=== PATIENT | male | born 1955 | race Asian ===

== ENCOUNTER 2022-05-14 18:51 | Inpatient (IN) | payer BC ==
[~2022-05-14] VITALS: Ht 167.6 cm; Wt 59.0 kg
--- NOTE | 2022-05-14 18:00 | NUR ---
pt arrived on the unit. pt aox4, trach dependent, non-verbal. pt can communicate using hand signal and head nodding. body check done by 2 RN, left mandible surgical wound, buttocks redness, left lateral legs scabs and left lateral foot redness noted. Picture taken and placed on the chart. T/O for admission orders received. pharmacy verified med list. will endorsed to noc shift for full admission.
[2022-05-14] MEDS ORDERED: HYDROGEN PEROXIDE 3% 118 ML BOTTLE TP PRN (20:00)
[2022-05-14] MEDS ORDERED: ACETAMINOPHEN 650 MG/20 ML UDC- SA PATIENTS-FEVER ONLY GT PRN (20:15)
[2022-05-14] MEDS ORDERED: MINERAL OIL/PETROLAT OPHT OINT 3.5 GM TUBE EACHEYE PRN (20:15)
[2022-05-14] MEDS ORDERED: ONDANSETRON HCL 4 MG TABLET GT PRN (20:15)
[2022-05-14] MEDS: HYDROGEN PEROXIDE 3% 118 ML BOTTLE TP SCH (23:40)
[2022-05-15] MEDS: ALLOPURINOL 100 MG TABLET GT SCH (08:43)
[2022-05-15] MEDS: POLYVINYL ALCOHOL OPHT DROPS 15 ML BOTTLE EACHEYE SCH ×3 (08:43→16:32)
[2022-05-15] MEDS: LANSOPRAZOLE 30MG DR CAPSULE GT SCH (08:43)
[2022-05-15] MEDS: ENOXAPARIN SODIUM 40 MG/0.4 ML DISP.SYRIN SQ SCH (08:44)
[2022-05-15] MEDS: ACETAMINOPHEN 650 MG/20 ML UDC- SA PATIENTS-PAIN ONLY GT PRN (08:45)
[2022-05-15] MEDS: HYDROGEN PEROXIDE 3% 118 ML BOTTLE TP SCH ×2 (09:00→21:52)
[2022-05-15] MEDS ORDERED: TUBERCULIN,PURIF.PROT.DERIV. 5 TU/0.1 ML TEST ID SCH (12:00)
--- NOTE | 2022-05-15 12:16 | NUR ---
Pt AAOx3. Trach Mist in place ,respirations even and unlabored no SOB, non-verbal. pt can communicate using hand signal head nodding writing notes. GTF in place intact no residual, left mandible surgical wound cover w/DD, buttocks redness, left lateral legs scabs and left lateral foot redness noted. Meds given as per MD order PPD given at [facility] will continue to monitor closely for safety and comfort.
[2022-05-15 15:34] LABS: HEMATOCRIT 26.1 % (36.7-47.1); MEAN CORPUSCULAR HEMOGLOBIN 27.2 uug (23.8-33.4); MEAN CORPUSCULAR VOLUME 86.6 fL (73.0-96.2); PLATELET COUNT (AUTO) 273 K/uL (152-348)
[2022-05-15 15:49] LABS: BILIRUBIN,TOTAL 0.2 mg/dL (0.2-1.0); CREATININE 0.9 mg/dL (0.6-1.3); MAGNESIUM 2.2 mg/dL (1.8-2.4); PHOSPHOROUS 2.8 mg/dL (2.5-4.9); TOTAL PROTEIN, SERUM 7.2 g/dL (6.4-8.2); URIC ACID 6.4 mg/dL (3.5-7.2)
[2022-05-15 17:36] LABS: ABG BASE EXCESS 3.6 mmol/L; ABG HCO3 27.6 mmol/L; ABG PCO2 39.3 mmHg (35.0-45.0); ABG PH 7.464 (7.350-7.450); ABG PO2 82.2 mmHg (75.0-100.0); ABG SITE RIGHT BRACHIAL; ABG TOTAL HEMOGLOBIN 11.6 G/dL (13.5-18.0); COHb 0.5 % (0.5-1.5); MetHb 0.3 % (0.0-1.5); O2Hb 95.7 % (94.0-97.0); VENT MODE TRACH MASK
[2022-05-15] MEDS: JEVITY 1.2 1000 ML LIQUID GT PRN (18:35)
[2022-05-15] MEDS: NEOMY/BACITRAC/POLYMI OINT 28.35 GM TUBE TP SCH (21:14)
[2022-05-15] MEDS: COD LIVER OIL/ZINC OXIDE OINT 113 GM TUBE TP SCH (21:14)
--- NOTE | 2022-05-15 22:30 | NUR ---
Afebrile, alert with episodes of forgetfulness. Trach is intact and patent, no SOB noted, 02 sat is 98% on TM @ 28% fi02. slept on and off, treatment done to left buttock dermatitis, Gt site, left lateral foot redness, Left lateral leg wound, Left mandible wound as ordered. Gt feeding is tolerating well, no vomiting noted, kept patient clean and comfortable, turned and repositioned for comfort, will continue monitor
[2022-05-16 00:06] LABS: PRE ALBUMIN 16.8 MG/DL (18.0-35.7)
--- NOTE | 2022-05-16 03:08 | NUR ---
pt awake alert responsive on trach with o2mask no sob distress.on gt feeding continue tx on (L) mandible surgical wound.continue tx to buttock with dressing.no s/s of pain continue isolation for pui noted.
[2022-05-16] MEDS: ENOXAPARIN SODIUM 40 MG/0.4 ML DISP.SYRIN SQ SCH (09:00)
[2022-05-16] MEDS: POLYVINYL ALCOHOL OPHT DROPS 15 ML BOTTLE EACHEYE SCH ×3 (09:00→17:05)
[2022-05-16] MEDS: COD LIVER OIL/ZINC OXIDE OINT 113 GM TUBE TP SCH ×2 (09:00→20:45)
[2022-05-16] MEDS: NEOMY/BACITRA/POLYMYXIN B OINT UD PACKET TP SCH ×4 (09:00→20:45)
[2022-05-16] MEDS: LANSOPRAZOLE 30MG DR CAPSULE GT SCH (09:00)
[2022-05-16] MEDS: NEOMY/BACITRAC/POLYMI OINT 28.35 GM TUBE TP SCH ×2 (09:00→20:45)
[2022-05-16] MEDS: HYDROGEN PEROXIDE 3% 118 ML BOTTLE TP SCH ×2 (09:10→19:56)
[2022-05-16] MEDS: ALLOPURINOL 100 MG TABLET GT SCH (11:10)
[2022-05-16] MEDS: JEVITY 1.2 1000 ML LIQUID GT PRN (22:24)
[2022-05-17 07:20] LABS: HEMATOCRIT 28.1 % (36.7-47.1); MEAN CORPUSCULAR VOLUME 86.5 fL (73.0-96.2); PLATELET COUNT (AUTO) 320 K/uL (152-348)
[2022-05-17 07:38] LABS: THYROID STIMULATING HORMONE 0.666 mIU/mL (0.358-3.740)
[2022-05-17 08:11] LABS: BILIRUBIN,TOTAL 0.2 mg/dL (0.2-1.0); CREATININE 0.9 mg/dL (0.6-1.3); MAGNESIUM 2.5 mg/dL (1.8-2.4); PHOSPHOROUS 3.2 mg/dL (2.5-4.9); POTASSIUM 4.3 mmol/L (3.5-5.1); TOTAL PROTEIN, SERUM 7.9 g/dL (6.4-8.2)
[2022-05-17] MEDS: HYDROGEN PEROXIDE 3% 118 ML BOTTLE TP SCH ×2 (09:00→21:00)
[2022-05-17] MEDS: LANSOPRAZOLE 30MG DR CAPSULE GT SCH (09:55)
[2022-05-17] MEDS: POLYVINYL ALCOHOL OPHT DROPS 15 ML BOTTLE EACHEYE SCH ×3 (09:55→17:42)
[2022-05-17] MEDS: ALLOPURINOL 100 MG TABLET GT SCH (09:59)
[2022-05-17] MEDS: COD LIVER OIL/ZINC OXIDE OINT 113 GM TUBE TP SCH ×2 (10:00→21:31)
[2022-05-17] MEDS: NEOMY/BACITRAC/POLYMI OINT 28.35 GM TUBE TP SCH ×2 (10:00→21:31)
[2022-05-17] MEDS: NEOMY/BACITRA/POLYMYXIN B OINT UD PACKET TP SCH ×4 (10:00→21:31)
[2022-05-17] MEDS: ENOXAPARIN SODIUM 40 MG/0.4 ML DISP.SYRIN SQ SCH (10:00)
--- NOTE | 2022-05-17 10:46 | NUR ---
RUSSEL notified patient's daughter, Santosh by email that the next IDT meeting for the patient is scheduled for 05/25/2022 at 11am. RUSSEL asked Santosh to let RUSSEL know if she would like to participate in the meeting by speaker phone.
[2022-05-17] MEDS: JEVITY 1.2 1000 ML LIQUID GT PRN (12:50)
--- NOTE | 2022-05-17 13:33 | NUR ---
Social Work Assessment: SW completed patient's psychosocial assessment today. Information gathered from patient's medical records and from patient's family. SW obtained signatures from patient's family for Conditions of Admission, Patient Rights Acknowledgement, Documentation of Preferred Intensity of Care, Voluntary Prior Express Consent Form, Race and Ethnicity Patient Self-Identification, and the [facility] Agreement. Sossi from admitting scanned the documentation and SW placed the documentation in the patient's chart.
[2022-05-18] MEDS: JEVITY 1.2 1000 ML LIQUID GT PRN ×2 (02:04→16:31)
--- NOTE | 2022-05-18 06:52 | NUR ---
Patient was seen by Jeanette Gonzales. PA received order to discontinue Cezar due to high calcium level 12.9, patient also has elevated WBC of 17.[address] Lambert with no reply. we'll endorsed to oncoming shift to follow up.
[2022-05-18] MEDS: HYDROGEN PEROXIDE 3% 118 ML BOTTLE TP SCH ×2 (07:44→21:16)
[2022-05-18] MEDS ORDERED: ARGININE/GLUTAMINE/CALCIUM BMB 1 EACH POWD.PACK GT SCH (09:00)
[2022-05-18] MEDS: POLYVINYL ALCOHOL OPHT DROPS 15 ML BOTTLE EACHEYE SCH ×3 (09:09→17:00)
[2022-05-18] MEDS: COD LIVER OIL/ZINC OXIDE OINT 113 GM TUBE TP SCH ×2 (09:12→21:50)
[2022-05-18] MEDS: NEOMY/BACITRA/POLYMYXIN B OINT UD PACKET TP SCH ×4 (09:12→21:51)
[2022-05-18] MEDS: NEOMY/BACITRAC/POLYMI OINT 28.35 GM TUBE TP SCH (09:12)
[2022-05-18] MEDS: ALLOPURINOL 100 MG TABLET GT SCH (09:12)
[2022-05-18] MEDS: LANSOPRAZOLE 30 MG CAPSULE.DR GT SCH (09:13)
[2022-05-18] MEDS: ENOXAPARIN SODIUM 40 MG/0.4 ML DISP.SYRIN SQ SCH (09:14)
--- NOTE | 2022-05-18 11:00 | NUR ---
Seen by Gretchen LANDERS wound evaluated,with new orders noted.call for surgical consult,Dr Toth for facial wound.
--- NOTE | 2022-05-18 11:37 | NUR ---
WOUND CARE CONSULT: PT SEEN FOR SKIN ASSESSMENT AND NOTED TO HAVE SCARRING TO BILATERAL HEELS, SCARRING WITH VERY DRY SKIN TO LEFT THIGH AND OPEN LESION/WOUND TO LEFT JAW AREA, PRESENT ON ADMISSION. RECOMMENDATIONS MADE FOR SKIN PROTECTION. DISCUSSED WITH NURSING STAFF. FIRST STEP LOW AIRLOSS MATTRESS IS ON ORDER. DR WEINER CALLED FOR SURGICAL CONSULT OF JAW WOUND. MD IN AGREEMENT WITH PLAN OF CARE.
--- NOTE | 2022-05-18 12:15 | NUR ---
Seen and examined by Antonina See with new orders noted for ID consult for increase WBC,Dr Cheek was called to evaluate the patient.
--- NOTE | 2022-05-18 12:50 | NUR ---
new orders from Jeanette See for Oncology consult,carried out,Left message to Dr Schumacher.
--- NOTE | 2022-05-18 14:00 | NUR ---
Seen and examined by Itzel for surgical consult,no new orders continue with the same tx until oncology evaluate the patient.
[2022-05-18] MEDS: ACETAMINOPHEN 650 MG/20 ML UDC- SA PATIENTS-PAIN ONLY GT PRN (14:32)
[2022-05-19] MEDS: JEVITY 1.2 1000 ML LIQUID GT PRN (05:48)
[2022-05-19] MEDS: NEOMY/BACITRA/POLYMYXIN B OINT UD PACKET TP SCH ×3 (09:00→21:46)
[2022-05-19] MEDS: ALLOPURINOL 100 MG TABLET GT SCH (09:00)
[2022-05-19] MEDS ORDERED: ARGININE/GLUTAMINE/CALCIUM BMB 1 EACH POWD.PACK GT SCH (09:00)
[2022-05-19] MEDS: PETROLATUM,WHITE JELLY 28.35 GM TUBE TP SCH (09:00)
[2022-05-19] MEDS: ENOXAPARIN SODIUM 40 MG/0.4 ML DISP.SYRIN SQ SCH (09:00)
[2022-05-19] MEDS: LANSOPRAZOLE 30 MG CAPSULE.DR GT SCH (09:00)
[2022-05-19] MEDS: POLYVINYL ALCOHOL OPHT DROPS 15 ML BOTTLE EACHEYE SCH ×3 (09:00→17:34)
[2022-05-19] MEDS: COD LIVER OIL/ZINC OXIDE OINT 113 GM TUBE TP SCH ×2 (09:00→21:46)
[2022-05-19] MEDS: HYDROGEN PEROXIDE 3% 118 ML BOTTLE TP SCH ×2 (09:03→20:09)
[2022-05-19] MEDS: ACETAMINOPHEN 650 MG/20 ML UDC- SA PATIENTS-PAIN ONLY GT PRN (13:20)
--- NOTE | 2022-05-19 18:00 | NUR ---
Spoke to Dr Schumacher for the oncology consult,ID consult pending.
[2022-05-20] MEDS: LANSOPRAZOLE 30 MG CAPSULE.DR GT SCH (05:48)
[2022-05-20] MEDS: HYDROGEN PEROXIDE 3% 118 ML BOTTLE TP SCH ×2 (07:56→21:17)
[2022-05-20] MEDS: POLYVINYL ALCOHOL OPHT DROPS 15 ML BOTTLE EACHEYE SCH ×3 (09:31→17:00)
[2022-05-20] MEDS: ALLOPURINOL 100 MG TABLET GT SCH (09:31)
[2022-05-20] MEDS: NEOMY/BACITRA/POLYMYXIN B OINT UD PACKET TP SCH ×2 (09:32→21:00)
[2022-05-20] MEDS: ENOXAPARIN SODIUM 40 MG/0.4 ML DISP.SYRIN SQ SCH (09:32)
[2022-05-20] MEDS: COD LIVER OIL/ZINC OXIDE OINT 113 GM TUBE TP SCH ×2 (09:32→21:00)
[2022-05-20] MEDS: PETROLATUM,WHITE JELLY 28.35 GM TUBE TP SCH (09:32)
--- NOTE | 2022-05-20 17:00 | NUR ---
PT. WAS SEEN AND EVALUATED BY DR. HUDSON AND NNO.
--- NOTE | 2022-05-20 18:32 | NUR ---
PT. SEEN AND EXAMINED BY MAGNETIC TAPE WINDER/ONCOLOGIST DR. HUDSON AND WITH NNO AT THIS TIME(SEE NOTES AND RECOMMENDATIONS AND PLAN)
--- NOTE | 2022-05-20 19:22 | NUR ---
PT. WAS SEEN AND EXAMINED BY DR. RUSH (I.D) AND WITH NNO AT THIS TIME BUT HE SAID HE WILL ORDER A CBC TOMORROW.
[2022-05-21] MEDS: JEVITY 1.2 1000 ML LIQUID GT PRN ×2 (01:00→17:45)
[2022-05-21] MEDS: LANSOPRAZOLE 30 MG CAPSULE.DR GT SCH (06:19)
[2022-05-21 07:48] LABS: HEMATOCRIT 28.1 % (36.7-47.1); MEAN CORPUSCULAR HEMOGLOBIN 27.3 uug (23.8-33.4); MEAN CORPUSCULAR VOLUME 87.9 fL (73.0-96.2); PLATELET COUNT (AUTO) 333 K/uL (152-348)
[2022-05-21 07:54] LABS: BILIRUBIN,TOTAL 0.2 mg/dL (0.2-1.0); CREATININE 1.1 mg/dL (0.6-1.3); POTASSIUM 4.2 mmol/L (3.5-5.1); TOTAL PROTEIN, SERUM 7.7 g/dL (6.4-8.2)
[2022-05-21] MEDS: HYDROGEN PEROXIDE 3% 118 ML BOTTLE TP SCH ×2 (09:00→21:31)
[2022-05-21] MEDS: POLYVINYL ALCOHOL OPHT DROPS 15 ML BOTTLE EACHEYE SCH ×3 (09:20→17:40)
[2022-05-21] MEDS: ALLOPURINOL 100 MG TABLET GT SCH (09:24)
[2022-05-21] MEDS: ENOXAPARIN SODIUM 40 MG/0.4 ML DISP.SYRIN SQ SCH (09:24)
[2022-05-21] MEDS: PETROLATUM,WHITE JELLY 28.35 GM TUBE TP SCH (09:25)
[2022-05-21] MEDS: NEOMY/BACITRA/POLYMYXIN B OINT UD PACKET TP SCH ×2 (09:25→21:04)
[2022-05-21] MEDS: COD LIVER OIL/ZINC OXIDE OINT 113 GM TUBE TP SCH ×2 (09:25→21:04)
--- NOTE | 2022-05-21 14:00 | NUR ---
SEEN BY DR. TRISTAN THOMPSON.
--- NOTE | 2022-05-21 16:59 | NUR ---
DR. ANGULO WAS NOTIFIED RE: CALCIUM LEVEL 13.7 AND WILL ASSESS PT TO ORDER TX.
--- NOTE | 2022-05-21 18:39 | NUR ---
NEW ORDERS CARRIED OUT AND PT'S AWARE AND IN AGREEMENT.DR. CUMMINS AWARE OF DR. HUDSON AND DR TERRAZAS CONSULTATIONS ,ORDERS AND RECOMMENDATIONS AND WILL BE F/U IN IDT MEETING NEXT TUESDAY AND WITH WEDDING DECORATOR TO ARRANGE THE MOST BENEFICIAL OPTIONS FOR THE PT. D/T ACCORDING TO PT'S SHE EXPECT PT. GAIN WT. AND GETS STRONGER AND TO KEEP TREATING PT'S CANCER PT. ASKED TO HER IN THE PAST ACCORDING TO HER.RT RT. F/A IV PERIPHERAL LINE PLACED AT FIRST ATTEMPT WITH GOOD BLOOD RETURN AND IV HYDRATION STARTED.PT. REMAINS AT TIMES MOVING ARMS AND QUIET ,NO FACIAL GRIMACING,AFEBRILE AND WILL CONT. TO MONITOR.
[2022-05-21] MEDS: IV 1/2NS 1000 ML 1,000 ML IV PRN (18:48)
[2022-05-21] MEDS ORDERED: PAMIDRONATE DISODIUM IV ONE (20:00)
[2022-05-21] MEDS ORDERED: PAMIDRONATE DISODIUM 90 MG in IV NORMAL SALINE 500 ML IV ONE (20:00)
--- NOTE | 2022-05-21 23:55 | NUR ---
Aredia 90mg given IV as ordered for hypercalcemia, no adverse reactions noted. Currently on Iv hydration of 1/2 NS @ 80ml/hour, infusing well on his right forearm. No signs of fluid overload noted. Will monitor closely.
[2022-05-22] MEDS: ACETAMINOPHEN 650 MG/20 ML UDC- SA PATIENTS-PAIN ONLY GT PRN (04:42)
[2022-05-22] MEDS: LANSOPRAZOLE 30 MG CAPSULE.DR GT SCH (05:14)
[2022-05-22] MEDS: HYDROGEN PEROXIDE 3% 118 ML BOTTLE TP SCH ×2 (07:03→21:19)
[2022-05-22 07:59] LABS: CREATININE 0.9 mg/dL (0.6-1.3); MAGNESIUM 2.7 mg/dL (1.8-2.4); PHOSPHOROUS 3.6 mg/dL (2.5-4.9); POTASSIUM 4.1 mmol/L (3.5-5.1)
[2022-05-22 08:15] LABS: MEAN CORPUSCULAR VOLUME 88.2 fL (73.0-96.2)
[2022-05-22 08:16] LABS: HEMATOCRIT 23.9 % (36.7-47.1); MEAN CORPUSCULAR HEMOGLOBIN 26.5 uug (23.8-33.4); PLATELET COUNT (AUTO) 273 K/uL (152-348)
[2022-05-22] MEDS: POLYVINYL ALCOHOL OPHT DROPS 15 ML BOTTLE EACHEYE SCH ×3 (09:26→16:40)
[2022-05-22] MEDS: ALLOPURINOL 100 MG TABLET GT SCH (09:26)
[2022-05-22] MEDS: NEOMY/BACITRA/POLYMYXIN B OINT UD PACKET TP SCH ×2 (09:29→20:55)
[2022-05-22] MEDS: ENOXAPARIN SODIUM 40 MG/0.4 ML DISP.SYRIN SQ SCH (09:29)
[2022-05-22] MEDS: PETROLATUM,WHITE JELLY 28.35 GM TUBE TP SCH (09:29)
[2022-05-22] MEDS: COD LIVER OIL/ZINC OXIDE OINT 113 GM TUBE TP SCH ×2 (09:29→20:55)
--- NOTE | 2022-05-22 10:41 | NUR ---
PT. WAS SEEN AND EXAMINED BY DR. CUMMINS (AWARE OF ABNORMAL LABS ) AND WITH NEW ORDERS CARRIED OUT.
--- NOTE | 2022-05-22 10:51 | NUR ---
DR. ANGULO WAS AWARE OF ABNORMAL LAB RESULTS AND NNO BUT HE ASKED NURSE TO F/U TOO WITH DR. HUDSON.
--- NOTE | 2022-05-22 10:56 | NUR ---
DR. HUDSON WAS CALLED AND MESSAGE LEFT WITH REQUEST TO CALL BACK.
--- NOTE | 2022-05-22 10:59 | NUR ---
DR. HUDSON CALLED BACK AND AWARE OF ABNORMAL LABS AND SHE WILL ASSESS PT.
--- NOTE | 2022-05-22 15:15 | NUR ---
NEW LAB ORDERS SEEN FOR TOMORROW AM.
--- NOTE | 2022-05-22 15:22 | NUR ---
ORAL CARE SLOWLY AND GENTLY DONE WITH ASSISTANCE OF PT'S ,UNABLE TO CLEAN COMPLETELY D/T PT. HAS LIMITATION OPENING HER MOUTH.
[2022-05-22] MEDS: JEVITY 1.2 1000 ML LIQUID GT PRN (16:09)
[2022-05-22] MEDS: IV 1/2NS 1000 ML 1,000 ML IV PRN (17:52)
--- NOTE | 2022-05-22 18:00 | NUR ---
PT. AFEBRILE ,ON IV HYDRATION WELL TOLERATED ,NO S/S OF CIRCULATORY OVERLOADING ADEQUATE DIURESIS ,PA/010,ORAL CARE DONE PT'S CONDITION PERMITS D/T UNABLE TO OPEN MOUTH COMPLETELY,LEFT LOWER JAW WOUNF WITH NO S/S OF LOCAL INFECTION ,ODORLESS,DRESSING DONE ORDERED.
--- NOTE | 2022-05-22 19:25 | NUR ---
SEEN BYDR. MIGUEL AND ALECO.
[2022-05-23] MEDS: LANSOPRAZOLE 30 MG CAPSULE.DR GT SCH (06:39)
[2022-05-23 07:33] LABS: HEMATOCRIT 23.3 % (36.7-47.1); MEAN CORPUSCULAR HEMOGLOBIN 27.2 uug (23.8-33.4); MEAN CORPUSCULAR VOLUME 86.7 fL (73.0-96.2); PLATELET COUNT (AUTO) 265 K/uL (152-348)
[2022-05-23 07:48] LABS: THYROID STIMULATING HORMONE 0.618 mIU/mL (0.358-3.740)
[2022-05-23 08:19] LABS: CREATININE 0.9 mg/dL (0.6-1.3); POTASSIUM 3.9 mmol/L (3.5-5.1)
[2022-05-23] MEDS: POLYVINYL ALCOHOL OPHT DROPS 15 ML BOTTLE EACHEYE SCH ×3 (08:20→17:24)
[2022-05-23] MEDS: ALLOPURINOL 100 MG TABLET GT SCH (08:20)
[2022-05-23] MEDS: COD LIVER OIL/ZINC OXIDE OINT 113 GM TUBE TP SCH ×2 (08:27→21:11)
[2022-05-23] MEDS: ENOXAPARIN SODIUM 40 MG/0.4 ML DISP.SYRIN SQ SCH (08:29)
[2022-05-23] MEDS: IV 1/2NS 1000 ML 1,000 ML IV PRN (08:50)
[2022-05-23] MEDS: NEOMY/BACITRA/POLYMYXIN B OINT UD PACKET TP SCH ×2 (09:00→21:12)
[2022-05-23] MEDS: PETROLATUM,WHITE JELLY 28.35 GM TUBE TP SCH (09:00)
[2022-05-23] MEDS: HYDROGEN PEROXIDE 3% 118 ML BOTTLE TP SCH ×2 (09:45→21:12)
--- NOTE | 2022-05-23 11:30 | NUR ---
SEEN BY DR. HUDSON AND NNO.
--- NOTE | 2022-05-23 19:00 | NUR ---
NO S/S OF CIRCULATORY OVERLOADING ,REMAINS ON IV HYDRATION ,LEFT F/A IV SITE INTACT AND PATENT ,ADEQUATE DIURESIS ,AFEBRILE ,NO S/S OF LOCAL INFECTION ON LEFT LOWER JAW WOUND AND P/A 0/10.PT'S VISITING AND EXPRESSED WISH TO HAVE A PET SCAN AND SHE STATED THAT [facility] ONLY WWOULD ACCEPT HIM FOR CONSULTATION TILL HE GETS STRONGER AND GAIN WT IN ORDER TO TOLERATED CA TX AND WILL BE F/U WITH DR. HUDSON AND DR. DESHPANDE.
--- NOTE | 2022-05-23 19:00 | NUR ---
SEEN BY LAMONT Huerta AND ALECO.
[2022-05-23] MEDS: ACETAMINOPHEN 650 MG/20 ML UDC- SA PATIENTS-PAIN ONLY GT PRN (21:13)
[2022-05-24] MEDS: LANSOPRAZOLE 30 MG CAPSULE.DR GT SCH (06:40)
--- NOTE | 2022-05-24 07:02 | NUR ---
Patient is AAOX2 nonverbal, he did run a temp of 100.4 at the beginning of the shift tylenol have been administered. The vitals during the assessment was 99.6 , and the last one at 0615 98.6. Patient is stable and he is resting in his room. We will continue to monitor patient for safety.
[2022-05-24 08:06] LABS: *IMMUNOGLOBULIN G, SERUM 1242 mg/dL (603-1613); IMMUNOGLOBULIN M, SERUM 50 mg/dL (20-172)
[2022-05-24] MEDS: POLYVINYL ALCOHOL OPHT DROPS 15 ML BOTTLE EACHEYE SCH ×3 (09:24→17:33)
[2022-05-24] MEDS: ALLOPURINOL 100 MG TABLET GT SCH (09:24)
[2022-05-24] MEDS: COD LIVER OIL/ZINC OXIDE OINT 113 GM TUBE TP SCH ×2 (09:24→21:00)
[2022-05-24] MEDS: PETROLATUM,WHITE JELLY 28.35 GM TUBE TP SCH (09:24)
[2022-05-24] MEDS: ENOXAPARIN SODIUM 40 MG/0.4 ML DISP.SYRIN SQ SCH (09:24)
[2022-05-24] MEDS: NEOMY/BACITRA/POLYMYXIN B OINT UD PACKET TP SCH ×2 (09:24→21:00)
[2022-05-24] MEDS: HYDROGEN PEROXIDE 3% 118 ML BOTTLE TP SCH ×2 (09:34→20:34)
[2022-05-24] MEDS: IV 1/2NS 1000 ML 1,000 ML IV PRN (10:48)
--- NOTE | 2022-05-24 11:55 | NUR ---
NEW ORDERS CARRIEDE OUT FROM [facility] RECOMMENDED BY REG. CORPORATE STRATEGY ANALYST FOR WOUND HEALING AND NEW ORDER CARRIED OUT TO TREAT LEFT DRY EYE THAT PT. CAN NOT CLOSE COMPLETELY.PT'S AWARE OF ORDERS AND CONDITION AND IN AGREEMENT WITH TX.
[2022-05-24] MEDS ORDERED: NYSTATIN SUSPENSION 5 ML LIQUID UDC PO SCH (13:00)
--- NOTE | 2022-05-24 13:00 | NUR ---
PT. SEEN AND EXAMINED BY DR. HUDSON ,DR. RUSH AND DR. YEE AND NNO AND DR. HUDSON WILL SPEAK TO PT'S NEXT TIME SHE VISITS.
[2022-05-24] MEDS: NYSTATIN SUSPENSION 5 ML LIQUID UDC XX SCH ×3 (13:25→21:00)
[2022-05-24] MEDS: JEVITY 1.2 1000 ML LIQUID GT PRN (13:30)
--- NOTE | 2022-05-24 15:24 | NUR ---
DR. HUDSON WAS CALLED AND IT WAS VERIFIED WITH HER THAT SHE RECEIVED THE RECORDS FROM [facility] THAT INCLUDES MRI THAT ACCORDING TO PT'S SHOWS NO METASTASIS ,ALSO SHE WAS AWARE THAT PER PT'S [facility] IS GONNA ACCEPT A CONSULTATION FOR EVALUATION FOR TX UNTIL PT. GAINS WT AND IS STRONGER .THEY TRIED TO GET CONSULTATION IN PREVIOUS HOSPITAL AND SHE MENTIONED THAT DR. LIRIANO CALLED HIMSELF TO [facility] BUT IT WAS THE SAME ANSWER,TILL HE IS STRONGER AND GAINS WT.
[2022-05-24] MEDS: ARGININE/GLUTAMINE/CALCIUM BMB 1 EACH POWD.PACK GT SCH (21:00)
[2022-05-24] MEDS: MINERAL OIL/PETROLAT OPHT OINT 3.5 GM TUBE LEFTEYE SCH (21:00)
[2022-05-25] MEDS: LANSOPRAZOLE 30 MG CAPSULE.DR GT SCH (06:17)
[2022-05-25 07:09] LABS: HEMATOCRIT 22.1 % (36.7-47.1); MEAN CORPUSCULAR HEMOGLOBIN 27.1 uug (23.8-33.4); MEAN CORPUSCULAR VOLUME 85.8 fL (73.0-96.2); PLATELET COUNT (AUTO) 250 K/uL (152-348)
[2022-05-25] MEDS: POLYVINYL ALCOHOL OPHT DROPS 15 ML BOTTLE EACHEYE SCH ×3 (08:08→17:00)
[2022-05-25] MEDS: ARGININE/GLUTAMINE/CALCIUM BMB 1 EACH POWD.PACK GT SCH ×2 (08:09→20:43)
[2022-05-25] MEDS: ALLOPURINOL 100 MG TABLET GT SCH (08:10)
[2022-05-25] MEDS: ENOXAPARIN SODIUM 40 MG/0.4 ML DISP.SYRIN SQ SCH (08:11)
[2022-05-25] MEDS: COD LIVER OIL/ZINC OXIDE OINT 113 GM TUBE TP SCH ×2 (08:12→20:44)
[2022-05-25] MEDS: PETROLATUM,WHITE JELLY 28.35 GM TUBE TP SCH (08:12)
[2022-05-25] MEDS: MINERAL OIL/PETROLAT OPHT OINT 3.5 GM TUBE LEFTEYE SCH ×2 (08:12→20:43)
[2022-05-25] MEDS: NYSTATIN SUSPENSION 5 ML LIQUID UDC XX SCH ×4 (08:12→20:43)
[2022-05-25] MEDS: HYDROGEN PEROXIDE 3% 118 ML BOTTLE TP SCH ×2 (09:00→19:58)
[2022-05-25] MEDS: NEOMY/BACITRA/POLYMYXIN B OINT UD PACKET TP SCH ×2 (09:46→20:44)
--- NOTE | 2022-05-25 12:00 | NUR ---
NEW ORDER FOR SPEECH THERAPY FOR PMV TRIAL CARRIED OUT FROM DR. CUMMINS.
--- NOTE | 2022-05-25 12:23 | NUR ---
NEW ORDER WAS CARRIED OUT FOR SPEECH THERAPY EVALUATION FOR PMV.
--- NOTE | 2022-05-25 12:35 | NUR ---
Interdisciplinary plan of care conference was held today. Patient's , Mattie, and daughter, Santosh participated in the meeting today in person. Dr. Baldwin and the interdisciplinary team reviewed the current plan of care in detail. RN reported on patient's medical condition and noted that the patient is being followed by the oncologist and the lab work is being monitored. Per RN, all of the patient's medications were continued from previous facility. See RN IDT conference notes. No major changes in the patient's current condition were reported by nursing or by any of the other disciplines. See all other disciplines' IDT notes and physician's progress notes for additional details. Mattie and Santosh's questions were addressed by the IDT team.
[2022-05-25] MEDS: IV 1/2NS 1000 ML 1,000 ML IV PRN (12:47)
[2022-05-25 13:07] LABS: A/G RATIO 0.6 (0.7-1.7); ALBUMIN 2.1 g/dL (2.9-4.4); ALPHA-1-GLOBULIN 0.4 g/dL (0.0-0.4); ALPHA-2-GLOBULIN 0.9 g/dL (0.4-1.0); GAMMA GLOBULIN 1.2 g/dL (0.4-1.8); GLOBULIN, TOTAL 3.6 g/dL (2.2-3.9); M-SPIKE Not Observed g/dL (Not Observed)
--- NOTE | 2022-05-25 14:04 | NUR ---
DR. DESHPANDE WAS NOTIFIED WITH A MESSAGE TODAY RE: HGB [address] WELL AND DR. HUDSON ITS GONNA MEET TODAY WITH PT'S AT 5 PM AND PT'S IN AGREEMENT.
--- NOTE | 2022-05-25 17:14 | NUR ---
NEW ORDERS CARRIED OUT FROM DR. DESHPANDE AND HE SAID AFTER HE KNOWS AND ASSESS THE RESULTS THEN HE WILL SPEAK TO PT'S .PT'S AWARE AND IN AGREEMENT.
--- NOTE | 2022-05-25 17:47 | NUR ---
PT'S SPOKE TO DR. HUDSON IN THE PHONE FOR A LONG TIME AND PT'S IN AGREEMENT AND ORDERS WILL BE CARRIED OUT AND ALSO PT'S WILL CHECK IN HER RECORDS IF SHE HAS A COPY OF THE PATHOLOGY REPORT DONE AT [facility] AND WILL LET NURSE KNOW TOMORROW.
--- NOTE | 2022-05-25 18:26 | NUR ---
DR. HUDSON ASKED NURSE TO GET ORDER TO DO PET SCAN OUT PATIENT FROM PRIMARY MD AND WILL BE ENDORSE TO INCOMING NURSE TO F/U IN AM AND GET IT APPROVED.
--- NOTE | 2022-05-25 18:32 | NUR ---
IV SITE CHANGED TO LEFT HAND #22 AT FIRST WITH GOOD BLOOD RETURN.
--- NOTE | 2022-05-25 19:44 | NUR ---
URINE AND STOOLS SAMPLES COLLECTED TODAY AND SENT TO THE LAB.
[2022-05-25 20:58] LABS: *BILIRUBIN,URIN NEGATIVE (NEGATIVE); *BLOOD, URINE NEGATIVE (NEGATIVE); *CLARITY,URINE CLEAR (CLEAR); *COLOR,URINE YELLOW (YELLOW); *KETONES,URINE NEGATIVE (NEGATIVE); *UROBILINOGEN,URINE 0.2 E.U./dl (NORMAL); LEUKOCYTE ESTERASE ,URINE NEGATIVE (NEGATIVE); NITRITE, URINE NEGATIVE (NEGATIVE); PH,URINE 6.5 (5.0-8.0); UGLUCOSE NEGATIVE (NEGATIVE)
[2022-05-25 23:33] LABS: *OCCULT BLOOD STOOL POSITIVE (NEGATIVE)
[2022-05-26] MEDS: LANSOPRAZOLE 30 MG CAPSULE.DR GT SCH (05:13)
[2022-05-26 07:27] LABS: MEAN CORPUSCULAR HEMOGLOBIN 27.4 uug (23.8-33.4); MEAN CORPUSCULAR VOLUME 85.2 fL (73.0-96.2); PLATELET COUNT (AUTO) 231 K/uL (152-348)
[2022-05-26 07:28] LABS: BILIRUBIN,TOTAL 0.3 mg/dL (0.2-1.0); CREATININE 0.8 mg/dL (0.6-1.3); MAGNESIUM 1.9 mg/dL (1.8-2.4); PHOSPHOROUS 2.4 mg/dL (2.5-4.9); POTASSIUM 3.9 mmol/L (3.5-5.1)
[2022-05-26] MEDS: HYDROGEN PEROXIDE 3% 118 ML BOTTLE TP SCH ×2 (08:08→20:18)
[2022-05-26] MEDS: COD LIVER OIL/ZINC OXIDE OINT 113 GM TUBE TP SCH ×2 (09:00→21:00)
[2022-05-26] MEDS: POLYVINYL ALCOHOL OPHT DROPS 15 ML BOTTLE EACHEYE SCH ×3 (09:00→16:56)
[2022-05-26] MEDS: NEOMY/BACITRA/POLYMYXIN B OINT UD PACKET TP SCH ×2 (09:00→21:00)
[2022-05-26] MEDS: MINERAL OIL/PETROLAT OPHT OINT 3.5 GM TUBE LEFTEYE SCH ×2 (09:00→21:00)
[2022-05-26] MEDS: ARGININE/GLUTAMINE/CALCIUM BMB 1 EACH POWD.PACK GT SCH ×2 (09:00→21:00)
[2022-05-26] MEDS: NYSTATIN SUSPENSION 5 ML LIQUID UDC XX SCH ×4 (09:00→21:00)
[2022-05-26] MEDS: ENOXAPARIN SODIUM 40 MG/0.4 ML DISP.SYRIN SQ SCH (09:00)
[2022-05-26 09:11] LABS: HEMATOCRIT 20.3 % (36.7-47.1)
[2022-05-26] MEDS: ALLOPURINOL 100 MG TABLET GT SCH (09:55)
[2022-05-26] MEDS: PETROLATUM,WHITE JELLY 28.35 GM TUBE TP SCH (09:55)
[2022-05-26 10:39] LABS: NEUTROPHILS % (MANUAL) 0 % (42-75)
--- NOTE | 2022-05-26 11:17 | NUR ---
DR Lambert was informed of the abnormal labs results,no new orders,Dr Lambert was aware of Dr Schumacher request for PET scan,no new orders.
[2022-05-26] MEDS: IV 1/2NS 1000 ML 1,000 ML IV PRN (12:07)
--- NOTE | 2022-05-26 12:12 | NUR ---
Pt was transfer to radiology for Ct scan of chest ,abdomen and pelvis with contrast ,back to the room in stable condition,Family came to visit him.
[2022-05-26] MEDS: JEVITY 1.2 1000 ML LIQUID GT PRN (12:14)
--- NOTE | 2022-05-26 15:30 | NUR ---
new orders from Dr Lambert to give neutrInnovate2os 2 packets via Gt x 1 carried out.
[2022-05-26] MEDS ORDERED: NEUTRA PHOS PACKET GT ONE (16:30)
--- NOTE | 2022-05-26 17:50 | NUR ---
Seen and examined By Dr Baldwin with new orders noted.To transfuse 1 unit of PRBC,ordered to the lab.
--- NOTE | 2022-05-26 17:51 | NUR ---
PET SCAN,MRI Brain with and without contrast and consult with [facility] oncology pending.
--- NOTE | 2022-05-26 17:53 | NUR ---
Pt's and daughter aware of new orders,consent for blood transfusion obtained.
--- NOTE | 2022-05-26 18:38 | NUR ---
Pt was NPO due to schedule CT can I/O 450 ml today.
--- NOTE | 2022-05-27 03:00 | NUR ---
PRBC BLOOD TRANSFUSION 1 UNIT WAS GIVEN BY NURSE AT 0300 NO ADVERSE REACTION NOTED V/S STABLE NO SOB DISTRESS.CONTINUE MONITOR FOR A/R NOTED.
[2022-05-27] MEDS: LANSOPRAZOLE 30 MG CAPSULE.DR GT SCH (06:31)
[2022-05-27] MEDS: POLYVINYL ALCOHOL OPHT DROPS 15 ML BOTTLE EACHEYE SCH (08:21)
[2022-05-27] MEDS: ALLOPURINOL 100 MG TABLET GT SCH (08:21)
[2022-05-27] MEDS: ARGININE/GLUTAMINE/CALCIUM BMB 1 EACH POWD.PACK GT SCH (08:21)
[2022-05-27] MEDS: COD LIVER OIL/ZINC OXIDE OINT 113 GM TUBE TP SCH (08:24)
[2022-05-27] MEDS: MINERAL OIL/PETROLAT OPHT OINT 3.5 GM TUBE LEFTEYE SCH (08:24)
[2022-05-27] MEDS: ENOXAPARIN SODIUM 40 MG/0.4 ML DISP.SYRIN SQ SCH (08:25)
--- NOTE | 2022-05-27 08:35 | NUR ---
S/P BLOOD TRANSFUSION WITH NO ADVERSE REACTION, NO ACUTE DISTRESS NOTED. VITAS TEMP 98.1 BP 109/52 PULSE 98 RESP. 18 AND SPO2 98%, WILL CONTINUE TO MONITOR.
[2022-05-27] MEDS: NYSTATIN SUSPENSION 5 ML LIQUID UDC XX SCH (09:00)
[2022-05-27] MEDS: PETROLATUM,WHITE JELLY 28.35 GM TUBE TP SCH (09:00)
[2022-05-27] MEDS: NEOMY/BACITRA/POLYMYXIN B OINT UD PACKET TP SCH (09:00)
[2022-05-27] MEDS: HYDROGEN PEROXIDE 3% 118 ML BOTTLE TP SCH (09:42)
--- NOTE | 2022-05-27 12:18 | NUR ---
DR. DESHPANDE ORDERED TO TRANSFER PATIENT TO ER FOR FURTHER EVALUATION. VITALS TEMP. 97.8 BP 113/61 PULSE 102, RESP. 18. PATIENT ASLEEP AND RESPONDS TO TACTILE STIMULI. CALLED TO NOTIFIED PATIENT'S RESPONSIBLE CONSTITUTION PARTY, LEFT MESSAGE FOR , ROYAL NEAL AND NOTIFIED DAUGHTER, MENA NEAL.
[2022-05-27] MEDS ORDERED: LANS30CA56 GT (12:48)
[2022-05-27] MEDS ORDERED: ALLO100T GT (12:48)
[2022-05-27] MEDS ORDERED: ACET-2154 GT (12:48)
[2022-05-27] MEDS ORDERED: MINE3.5O LEFTEYE (16:40)
[2022-05-27] MEDS ORDERED: POLY15DR27 EACHEYE (16:40)
[2022-05-27] MEDS ORDERED: ENOX40DI SQ (16:40)
[2022-05-27] MEDS ORDERED: NYST5ORA PO (16:45)
== END 2022-05-27 19:40 | disposition short-term general hospital (02) | DRG 189 ==
LOC: SA 18:51 → UNDOLOA 05-27 12:00
PROVIDERS: ADMIT Internal Medicine; ATTEND Internal Medicine
DX: J96.10 Chronic respiratory failure, unspecified whether with hypoxia or hypercapnia (principal); C78.00 Secondary malignant neoplasm of unspecified lung; J90 Pleural effusion, not elsewhere classified; J98.11 Atelectasis; E87.0 Hyperosmolality and hypernatremia; M27.2 Inflammatory conditions of jaws; E78.5 Hyperlipidemia, unspecified; D64.9 Anemia, unspecified; I10 Essential (primary) hypertension; Z93.1 Gastrostomy status; Z93.0 Tracheostomy status; M10.9 Gout, unspecified; R13.10 Dysphagia, unspecified; Z85.830 Personal history of malignant neoplasm of bone; G93.9 Disorder of brain, unspecified; E83.52 Hypercalcemia; Z92.21 Personal history of antineoplastic chemotherapy; Z92.3 Personal history of irradiation; I65.22 Occlusion and stenosis of left carotid artery
CPT/HCPCS: 36415; 36600; 70030-TC; 71045; 82378; 82747; 82784; 83550; 83735; 84100; 84153; 84155; 84165; 84443; 84550; 85014; 85025; 86140; 86334; 86580; 86850; 86900; 86901; 86920; 87040; 93005; A6209; J1650; J2430; J7040; J8499; P9016; U0003

== ENCOUNTER 2022-05-26 07:37 | Outpatient (CLI) | payer BC ==
[2022-05-26] MEDS ORDERED: IOHEXOL 300MG/ML 100 ML INFUS..BTL ONE (10:49)
[2022-05-26] MEDS ORDERED: SWABABLE VALVE TRANSFER SET EA MC ONE (10:49)
[2022-05-26] MEDS ORDERED: IV NORMAL SALINE 250 ML IV ONE (10:50)
[2022-05-27] MEDS ORDERED: ALLO100T GT (12:48)
[2022-05-27] MEDS ORDERED: ACET-2154 GT (12:48)
[2022-05-27] MEDS ORDERED: LANS30CA56 GT (12:48)
[2022-05-27] MEDS ORDERED: ENOX40DI SQ (16:40)
[2022-05-27] MEDS ORDERED: MINE3.5O LEFTEYE (16:40)
[2022-05-27] MEDS ORDERED: POLY15DR27 EACHEYE (16:40)
[2022-05-27] MEDS ORDERED: NYST5ORA PO (16:45)
== END 2022-05-26 23:59 | disposition home or self-care (01) ==
LOC: CT 07:37
PROVIDERS: ATTEND Internal Medicine
DX: N20.0 Calculus of kidney (principal); K40.20 Bilateral inguinal hernia, without obstruction or gangrene, not specified as recurrent; J18.9 Pneumonia, unspecified organism; K76.89 Other specified diseases of liver; I25.10 Atherosclerotic heart disease of native coronary artery without angina pectoris; R91.8 Other nonspecific abnormal finding of lung field; R06.02 Shortness of breath; I70.0 Atherosclerosis of aorta; J90 Pleural effusion, not elsewhere classified
CPT/HCPCS: 71260; 74177; Q9967

== ENCOUNTER 2022-05-27 10:51 | Inpatient (IN) | payer BC ==
[~2022-05-27] VITALS: Ht 167.6 cm; Wt 78.9 kg
[2022-05-27 11:22] LABS: *OCCULT BLOOD STOOL NEGATIVE (NEGATIVE)
[2022-05-27 11:28] LABS: HEMATOCRIT 31.4 % (36.7-47.1); MEAN CORPUSCULAR HEMOGLOBIN 27.5 uug (23.8-33.4); MEAN CORPUSCULAR VOLUME 86.2 fL (73.0-96.2); PLATELET COUNT (AUTO) 320 K/uL (152-348)
--- NOTE | 2022-05-27 11:31 | NUR ---
PT IS IN ROOM #1A. DR MATA EVALUATED THE PT.
[2022-05-27 11:40] LABS: CARBON DIOXIDE 29 mmol/L (21-32); CHLORIDE 108 mmol/L (98-107); CREATININE 0.9 mg/dL (0.6-1.3); GLUCOSE 151 mg/dL (74-106); POTASSIUM 4.7 mmol/L (3.5-5.1); UREA NITROGEN, BLOOD 27 mg/dL (7-18)
[2022-05-27 11:50] LABS: ALANINE AMINOTRANSFERASE 29 U/L (16-63); ALKALINE PHOSPHATASE 170 U/L (50-136); ASPARTATE AMINOTRANSFERASE 18 U/L (15-37); BILIRUBIN,DIRECT 0.2 mg/dL (0.0-0.2); BILIRUBIN,TOTAL 0.6 mg/dL (0.2-1.0); LIPASE 54 U/L (73-393); TOTAL PROTEIN, SERUM 7.3 g/dL (6.4-8.2)
[2022-05-27] MEDS ORDERED: VANCOMYCIN IV 200 ML ONE (12:30)
[2022-05-27] MEDS ORDERED: VANCOMYCIN IV 1,000 MG in IV DEXTROSE 5% 250 ML IV ONE (12:30)
[2022-05-27] MEDS ORDERED: PIPERACILLIN/TAZOBACTAM/D5W 50 ML IV ONE (12:30)
[2022-05-27] MEDS ORDERED: PIPERACILLIN SODIUM/TAZOBACTAM 3.375 G in IV DEXTROSE 5% 50 ML IV ONE (12:30)
[2022-05-27] MEDS ORDERED: IV NORMAL SALINE 1000 ML BAG IV ONE (12:30)
[2022-05-27] MEDS ORDERED: LANS30CA56 GT (12:48)
[2022-05-27] MEDS ORDERED: ACET-2154 GT (12:48)
[2022-05-27] MEDS ORDERED: ALLO100T GT (12:48)
--- NOTE | 2022-05-27 16:00 | NUR ---
REPORT RECEIVED FROM DALLAS CURRAN RN. PT WILL BE ADMITTED TO TELEMETRY. DX PNA/SEPSIS. PT IS LETHARGIC, NON VERBAL, CONFUSED AT TIMES. PT IS TRACH DEPENDENT ON 3 L O2 SATURATING 97-98%. PT HAVE GTF RUNNING JEVITY 1.2 @70CC/HR X22 HR. FC INTACT AND DRAING CLEAR YELLOW URINE. VITALS WNL. SINUS TACHY ON MONITOR. DR JOHNSON WILL F/U CARE.
--- NOTE | 2022-05-27 16:32 | NUR ---
PT WAS TRANSFERED TO TELEMETRY ROOM #315. REPORT WAS GIVEN TO LIBRARY SERVICES COORDINATOR WILI.
[2022-05-27] MEDS ORDERED: MINE3.5O LEFTEYE (16:40)
[2022-05-27] MEDS ORDERED: ENOX40DI SQ (16:40)
[2022-05-27] MEDS ORDERED: POLY15DR27 EACHEYE (16:40)
[2022-05-27] MEDS ORDERED: NYST5ORA PO (16:45)
[2022-05-27 17:00] VITALS: BP 112/52
[2022-05-27] MEDS ORDERED: ONDANSETRON 4 MG/2 ML VIAL IV PRN (17:15)
[2022-05-27] MEDS ORDERED: BISACODYL 10 MG SUPP.RECT RC PRN (17:15)
[2022-05-27] MEDS: JEVITY 1.2 1000 ML LIQUID GT PRN ×2 (19:00→19:30)
[2022-05-27 20:00] VITALS: BP 128/60
[2022-05-27] MEDS ORDERED: MEROPENEM 1 G in IV NORMAL SALINE 100 ML IV SCH (20:00)
[2022-05-27] MEDS: MINERAL OIL/PETROLAT OPHT OINT 3.5 GM TUBE LEFTEYE SCH (20:49)
[2022-05-27] MEDS: ACIDOPHILUS/BULGARICUS CHEW TAB GT SCH (20:50)
[2022-05-27] MEDS: POLYVINYL ALCOHOL OPHT DROPS 15 ML BOTTLE EACHEYE SCH (20:50)
[2022-05-27] MEDS: NYSTATIN SUSPENSION 5 ML LIQUID UDC PO SCH (20:51)
--- NOTE | 2022-05-27 23:00 | NUR ---
1910- The patient is at bedside resting. The patient is nonverbal but response to stimuli. The patient has a g tube that is patent, and intact. The patient has a patent 22g wrist IV that patent, dry, and intact. The patient has a flores catheter that is patent, and below the bladder. Call light within reach, Will continue to monitor throughout the shift. 2100- The patient is at bed resting and shows no signs of distress or sob. Will continue to monitor throughout the shift. 0200- The patient has no sigs of distress or sob. Will continue to monitor throughout the shift.
[2022-05-28] VITALS: BP 132/52
[2022-05-28] MEDS: VANCOMYCIN IV 1,000 MG in IV DEXTROSE 5% 250 ML IV SCH ×2 (01:03→13:23)
[2022-05-28] MEDS: MEROPENEM 1 G in IV NORMAL SALINE 100 ML IV SCH ×3 (04:05→20:18)
[2022-05-28 04:06] VITALS: BP 115/50
[2022-05-28 06:23] LABS: BILIRUBIN,TOTAL 0.2 mg/dL (0.2-1.0); CREATININE 0.9 mg/dL (0.6-1.3); PHOSPHOROUS 2.9 mg/dL (2.5-4.9); POTASSIUM 4.2 mmol/L (3.5-5.1); TOTAL PROTEIN, SERUM 6.2 g/dL (6.4-8.2)
[2022-05-28] MEDS: NYSTATIN SUSPENSION 5 ML LIQUID UDC PO SCH ×4 (09:39→20:19)
[2022-05-28] MEDS: POLYVINYL ALCOHOL OPHT DROPS 15 ML BOTTLE EACHEYE SCH ×3 (09:39→17:04)
[2022-05-28] MEDS: MINERAL OIL/PETROLAT OPHT OINT 3.5 GM TUBE LEFTEYE SCH ×2 (09:39→20:19)
[2022-05-28] MEDS: REMEDY ESSENTIAL ZINC PASTE 113 GM TOP PRN (09:39)
[2022-05-28] MEDS: PANTOPRAZOLE SODIUM 40 MG VIAL IV SCH (09:40)
[2022-05-28] MEDS: ACIDOPHILUS/BULGARICUS CHEW TAB GT SCH ×2 (09:40→20:18)
[2022-05-28] MEDS: FUROSEMIDE 20 MG/2 ML VIAL IV SCH (09:40)
[2022-05-28] MEDS: ENOXAPARIN SODIUM 30 MG/0.3 ML DISP.SYRIN SUBCUT SCH (09:41)
[2022-05-28] MEDS: ALLOPURINOL 100 MG TABLET GT SCH (09:41)
--- NOTE | 2022-05-28 10:32 | NUR ---
WOUND CARE CONSULT: PT PRESENTS WITH LEFT MANDIBLE WOUND, PRESENT ON ADMISSION. THERE IS SCARRING TO LEFT THIGH AND LEFT LOWER LEG, PRESENT ON ADMISSION. SACRAL AREA VERY BONY. RECOMMENDATIONS MADE FOR SKIN PROTECTION. DISCUSSED WITH NURSING STAFF. DR WEINER NOTIFIED OF SURGICAL CONSULT REQUEST. DEFER TO SURGICAL TEAM FOR MANDIBLE WOUND. MD IN AGREEMENT WITH PLAN OF CARE. Addendum: 05/28/22 at 1036 by ANITA CIFUENTES RN PT IS ON FIRST STEP [facility].
[2022-05-28 11:46] VITALS: BP 128/58
[2022-05-28 12:59] LABS: ABG BASE EXCESS 2.5 mmol/L; ABG HCO3 27.2 mmol/L; ABG PCO2 42.8 mmHg (35.0-45.0); ABG PH 7.421 (7.350-7.450); ABG PO2 95.3 mmHg (75.0-100.0); ABG SITE LEFT RADIAL; MetHb 0.4 % (0.0-1.5); VENT MODE O2 VIA TRACH COLLAR
[2022-05-28 16:00] VITALS: BP 128/60
[2022-05-28 20:28] VITALS: BP 96/47
[2022-05-28 23:17] VITALS: BP 112/52
[2022-05-29] MEDS: VANCOMYCIN IV 1,000 MG in IV DEXTROSE 5% 250 ML IV SCH ×2 (00:51→14:50)
--- NOTE | 2022-05-29 00:51 | NUR ---
Vanco trough 14.4; ok to give vancomycin IVPB
[2022-05-29] MEDS: MEROPENEM 1 G in IV NORMAL SALINE 100 ML IV SCH ×3 (03:23→20:24)
--- NOTE | 2022-05-29 04:45 | NUR ---
END OF SHIFT REPORT Patient rested well in between carte; tolerated GTF; remains tachycardic at 105 otherwise BP was stable and was afebrile; pt is going for thora today; consent in chart; repositioned q2h; hourly rounding done; safety maintained; aspiration precaution maintained; pt desaturated to the low 80's; suctioned secretions; changed inner cannula; copious secretions; RT at bedside; sat returned to 95%; continue to monitor; continue plan of care.
[2022-05-29 05:21] VITALS: BP 150/64
[2022-05-29 05:39] LABS: HEMATOCRIT 25.4 % (36.7-47.1); MEAN CORPUSCULAR HEMOGLOBIN 26.8 uug (23.8-33.4); PLATELET COUNT (AUTO) 279 K/uL (152-348)
[2022-05-29 06:00] LABS: BILIRUBIN,TOTAL 0.3 mg/dL (0.2-1.0); CREATININE 0.8 mg/dL (0.6-1.3); MAGNESIUM 2.4 mg/dL (1.8-2.4); PHOSPHOROUS 2.9 mg/dL (2.5-4.9); POTASSIUM 4.5 mmol/L (3.5-5.1); TOTAL PROTEIN, SERUM 6.4 g/dL (6.4-8.2)
[2022-05-29] MEDS: POLYVINYL ALCOHOL OPHT DROPS 15 ML BOTTLE EACHEYE SCH ×3 (08:24→17:37)
[2022-05-29] MEDS: FUROSEMIDE 20 MG/2 ML VIAL IV SCH (08:25)
[2022-05-29] MEDS: ALLOPURINOL 100 MG TABLET GT SCH (08:25)
[2022-05-29] MEDS: MINERAL OIL/PETROLAT OPHT OINT 3.5 GM TUBE LEFTEYE SCH ×2 (08:25→21:28)
[2022-05-29] MEDS: PANTOPRAZOLE SODIUM 40 MG VIAL IV SCH (08:25)
[2022-05-29] MEDS: ACIDOPHILUS/BULGARICUS CHEW TAB GT SCH ×2 (08:25→21:26)
[2022-05-29] MEDS: NYSTATIN SUSPENSION 5 ML LIQUID UDC PO SCH ×4 (08:27→21:26)
[2022-05-29] MEDS: ENOXAPARIN SODIUM 30 MG/0.3 ML DISP.SYRIN SUBCUT SCH ×2 (08:28→08:33)
--- NOTE | 2022-05-29 08:33 | NUR ---
hold lovenox dose per md. pt have thoracentesis procedure today
[2022-05-29] MEDS: JEVITY 1.2 1000 ML LIQUID GT PRN (09:00)
[2022-05-29 16:14] VITALS: BP 112/49
[2022-05-29 20:51] VITALS: BP 111/47
[2022-05-30 00:05] VITALS: BP 109/52
[2022-05-30] MEDS: VANCOMYCIN IV 1,000 MG in IV DEXTROSE 5% 250 ML IV SCH ×2 (01:16→12:54)
[2022-05-30 04:05] VITALS: BP 114/57
[2022-05-30] MEDS: MEROPENEM 1 G in IV NORMAL SALINE 100 ML IV SCH ×3 (04:23→20:52)
[2022-05-30] MEDS: ACETAMINOPHEN 325 MG TABLET GT PRN ×2 (04:32→22:09)
[2022-05-30 06:50] LABS: HEMATOCRIT 25.3 % (36.7-47.1); MEAN CORPUSCULAR HEMOGLOBIN 27.3 uug (23.8-33.4); MEAN CORPUSCULAR VOLUME 88.1 fL (73.0-96.2); PLATELET COUNT (AUTO) 315 K/uL (152-348)
[2022-05-30 07:15] LABS: CREATININE 0.9 mg/dL (0.6-1.3); MAGNESIUM 2.5 mg/dL (1.8-2.4); PHOSPHOROUS 3.1 mg/dL (2.5-4.9); POTASSIUM 4.4 mmol/L (3.5-5.1)
[2022-05-30] MEDS: FUROSEMIDE 20 MG/2 ML VIAL IV SCH (08:52)
[2022-05-30] MEDS: ACIDOPHILUS/BULGARICUS CHEW TAB GT SCH ×2 (08:52→20:52)
[2022-05-30] MEDS: POLYVINYL ALCOHOL OPHT DROPS 15 ML BOTTLE EACHEYE SCH ×4 (08:53→20:52)
[2022-05-30] MEDS: NYSTATIN SUSPENSION 5 ML LIQUID UDC PO SCH ×4 (08:53→20:52)
[2022-05-30] MEDS: ENOXAPARIN SODIUM 30 MG/0.3 ML DISP.SYRIN SUBCUT SCH (08:54)
[2022-05-30] MEDS: ALLOPURINOL 100 MG TABLET GT SCH (09:49)
[2022-05-30] MEDS: PANTOPRAZOLE ORAL SUSPENSION 40 MG SUSPDR.PKT GT SCH (09:49)
[2022-05-30] MEDS: MINERAL OIL/PETROLAT OPHT OINT 3.5 GM TUBE LEFTEYE SCH ×2 (09:50→21:00)
[2022-05-30 11:34] VITALS: BP 138/61
[2022-05-30 12:00] LABS: *BILIRUBIN,URIN NEGATIVE (NEGATIVE); *BLOOD, URINE NEGATIVE (NEGATIVE); *CLARITY,URINE CLEAR (CLEAR); *COLOR,URINE YELLOW (YELLOW); *KETONES,URINE NEGATIVE (NEGATIVE); *UROBILINOGEN,URINE 0.2 E.U./dl (NORMAL); LEUKOCYTE ESTERASE ,URINE NEGATIVE (NEGATIVE); NITRITE, URINE NEGATIVE (NEGATIVE); UGLUCOSE NEGATIVE (NEGATIVE)
[2022-05-30] MEDS: LEVALBUTEROL HCL NEB 0.63 MG/3 ML NEBU NEB PRN (12:34)
[2022-05-30] MEDS: IPRATROPIUM BROMIDE 0.5 MG/2.5 ML NEBU NEB PRN (12:34)
[2022-05-30 16:00] VITALS: BP 112/55
[2022-05-30 19:57] VITALS: BP 120/65
[2022-05-30 22:10] VITALS: BP 117/54
[2022-05-31] MEDS: VANCOMYCIN IV 1,000 MG in IV DEXTROSE 5% 250 ML IV SCH ×2 (00:16→12:02)
[2022-05-31 00:24] VITALS: BP 129/50
[2022-05-31] MEDS: MEROPENEM 1 G in IV NORMAL SALINE 100 ML IV SCH ×4 (03:46→20:49)
[2022-05-31 04:14] VITALS: BP 115/58
[2022-05-31 07:00] LABS: HEMATOCRIT 25.8 % (36.7-47.1); MEAN CORPUSCULAR HEMOGLOBIN 27.4 uug (23.8-33.4); MEAN CORPUSCULAR VOLUME 88.4 fL (73.0-96.2); PLATELET COUNT (AUTO) 327 K/uL (152-348)
[2022-05-31 07:33] LABS: ALANINE AMINOTRANSFERASE 21 U/L (16-63); ALKALINE PHOSPHATASE 149 U/L (50-136); ASPARTATE AMINOTRANSFERASE 8 U/L (15-37); BILIRUBIN,TOTAL 0.2 mg/dL (0.2-1.0); CARBON DIOXIDE 36 mmol/L (21-32); CHLORIDE 112 mmol/L (98-107); CREATININE 0.9 mg/dL (0.6-1.3); GLUCOSE 165 mg/dL (74-106); MAGNESIUM 2.4 mg/dL (1.8-2.4); PHOSPHOROUS 2.7 mg/dL (2.5-4.9); POTASSIUM 4.6 mmol/L (3.5-5.1); TOTAL PROTEIN, SERUM 6.4 g/dL (6.4-8.2); UREA NITROGEN, BLOOD 25 mg/dL (7-18)
[2022-05-31] MEDS: FUROSEMIDE 20 MG/2 ML VIAL IV SCH (08:31)
[2022-05-31] MEDS: ACETAMINOPHEN 325 MG TABLET GT PRN ×2 (08:31→20:50)
[2022-05-31] MEDS: ACIDOPHILUS/BULGARICUS CHEW TAB GT SCH ×2 (08:31→20:49)
[2022-05-31] MEDS: PANTOPRAZOLE ORAL SUSPENSION 40 MG SUSPDR.PKT GT SCH (08:31)
[2022-05-31] MEDS: ALLOPURINOL 100 MG TABLET GT SCH (08:31)
[2022-05-31] MEDS: MINERAL OIL/PETROLAT OPHT OINT 3.5 GM TUBE LEFTEYE SCH ×2 (08:32→20:49)
[2022-05-31] MEDS: NYSTATIN SUSPENSION 5 ML LIQUID UDC PO SCH ×4 (08:32→20:49)
[2022-05-31] MEDS: ENOXAPARIN SODIUM 30 MG/0.3 ML DISP.SYRIN SUBCUT SCH (08:44)
[2022-05-31 11:35] VITALS: BP 123/57
[2022-05-31] MEDS: POLYVINYL ALCOHOL OPHT DROPS 15 ML BOTTLE EACHEYE SCH ×2 (12:01→17:14)
[2022-05-31] MEDS: MORPHINE SULFATE 2 MG/1 ML DISP.SYRIN IV PRN ×2 (14:43→21:20)
--- NOTE | 2022-05-31 15:09 | NUR ---
per unit secretory request faxed to [facility] for records
[2022-05-31 15:44] VITALS: BP 112/47
--- NOTE | 2022-05-31 18:20 | NUR ---
Patient is awake, no sob, respirations are even nonlabored, skin warm and dry to touch, turned, repositioned, dressing changed, no acute distress noted.
[2022-05-31 20:00] VITALS: BP 120/52
[2022-05-31] MEDS: JEVITY 1.2 1000 ML LIQUID GT PRN (21:27)
[2022-06-01] MEDS: VANCOMYCIN IV 1,000 MG in IV DEXTROSE 5% 250 ML IV SCH ×2 (00:05→12:25)
[2022-06-01 01:01] VITALS: BP 112/52
[2022-06-01] MEDS: IPRATROPIUM BROMIDE 0.5 MG/2.5 ML NEBU NEB PRN ×2 (01:20→23:09)
[2022-06-01] MEDS: LEVALBUTEROL HCL NEB 0.63 MG/3 ML NEBU NEB PRN ×2 (01:20→23:09)
[2022-06-01] MEDS: MEROPENEM 1 G in IV NORMAL SALINE 100 ML IV SCH ×3 (03:34→20:25)
[2022-06-01 04:55] VITALS: BP 118/50
--- NOTE | 2022-06-01 05:28 | NUR ---
no events noted overnight, repositioned, kept clean and dry, oral care provided, perineal care provided, patient remained afebrile.
[2022-06-01 06:22] LABS: HEMATOCRIT 24.8 % (36.7-47.1); MEAN CORPUSCULAR VOLUME 88.6 fL (73.0-96.2); PLATELET COUNT (AUTO) 309 K/uL (152-348)
[2022-06-01 06:40] LABS: CREATININE 0.8 mg/dL (0.6-1.3); MAGNESIUM 2.7 mg/dL (1.8-2.4); POTASSIUM 4.8 mmol/L (3.5-5.1)
[2022-06-01] MEDS ORDERED: IV 1/2 NS + KCL 20 MEQ BAG 1,000 ML IV ONE (07:30)
--- NOTE | 2022-06-01 07:38 | NUR ---
patient is in bed, comfortable, clean and dry, g-tube intact, with positive placement, javity 1.2 running at 70cc/ hr, flores is intact, draining yellow color urine, no distress at this time, endorsed to next shift accordingly.
[2022-06-01 08:00] VITALS: BP 120/70
[2022-06-01] MEDS ORDERED: FUROSEMIDE 20 MG/2 ML VIAL IV SCH (09:00)
[2022-06-01] MEDS: ALLOPURINOL 100 MG TABLET GT SCH (09:08)
[2022-06-01] MEDS: FUROSEMIDE 40 MG/4 ML VIAL IVP SCH (09:08)
[2022-06-01] MEDS: ACIDOPHILUS/BULGARICUS CHEW TAB GT SCH ×2 (09:08→20:25)
[2022-06-01] MEDS: PANTOPRAZOLE ORAL SUSPENSION 40 MG SUSPDR.PKT GT SCH (09:08)
[2022-06-01] MEDS: MINERAL OIL/PETROLAT OPHT OINT 3.5 GM TUBE LEFTEYE SCH ×2 (09:08→20:26)
[2022-06-01] MEDS: NYSTATIN SUSPENSION 5 ML LIQUID UDC PO SCH ×4 (09:09→20:25)
[2022-06-01] MEDS: POLYVINYL ALCOHOL OPHT DROPS 15 ML BOTTLE EACHEYE SCH ×3 (09:09→16:49)
[2022-06-01] MEDS: ENOXAPARIN SODIUM 30 MG/0.3 ML DISP.SYRIN SUBCUT SCH (09:11)
[2022-06-01 11:44] VITALS: BP 124/59
--- NOTE | 2022-06-01 13:04 | NUR ---
WOUND CARE CONSULT: PT PRESENTS WITH LEFT MANDIBLE SURGICAL WOUND, PRESENT ON ADMISSION. SCARRING NOTED TO LEFT LOWER LEG AND THIGH, PRESENT ON ADMISSION. PT NOTED TO HAVE SACRAL INTACT DEEP TISSUE INJURY WHICH EXTENDS TO BUTTOCKS. DR WEINER CALLED FOR SURGICAL CONSULT. DISCUSSED SKIN PROTECTION AND WOUND CARE RECOMMENDATIONS WITH NURSING STAFF AND SURGICAL P.A. PT IS ON FIRST STEP [facility] LOW AIRLOSS MATTRESS. 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 DUE TO MULTIPLE CO-MORBIDITIES, FURTHER SKIN BREAKDOWN MAY BE UNAVOIDABLE. IN AGREEMENT WITH PLAN OF CARE. Addendum: 06/01/22 at 1307 by ANITA CIFUENTES RN Amended: Links added.
[2022-06-01 15:50] VITALS: BP 108/45
[2022-06-01 20:00] VITALS: BP 127/48
[2022-06-02] VITALS: BP 124/55
[2022-06-02] MEDS: VANCOMYCIN IV 1,000 MG in IV DEXTROSE 5% 250 ML IV SCH (01:23)
[2022-06-02] MEDS: MEROPENEM 1 G in IV NORMAL SALINE 100 ML IV SCH ×3 (03:34→20:24)
--- NOTE | 2022-06-02 03:42 | NUR ---
Awake upon initial rounds. On continous O2 @ 10L FIO2 via trach. # 6 Shiley intact, suctioned as needed, minimal amount of secretions noted. On continous pulse ox. 92-98% No respiratory distress noted. Respiratory therapist was at bedside giving respiratory treatments. VSS. Kept comfortable. Repositioned for comfort. Turned to sides. Right upper arm midline intact flushed and patent, pulse ox 95%. IV ABT given as scheduled. Tolerated well. No ill effects noted. Will monitor. NPO maintained Gtube intact, on continous Jevity @ 70cc/hr.
--- NOTE | 2022-06-02 04:34 | NUR ---
On telemetry. Patient on sinus rhythm HR 120's.
--- NOTE | 2022-06-02 05:27 | NUR ---
Patient having episodes of desatting to 70's-88% on 100% FIO2. Suctioned as needed, moderate amount of secretions noted. HOB up at all times. Respiratory therapist at bedside. Will monitor patient for any respiratory distress. Kept comfortable. Latest pulse ox 98% on 100%FIO2.
[2022-06-02 05:32] VITALS: BP 125/57
[2022-06-02] MEDS: ACETAMINOPHEN 325 MG TABLET GT PRN (05:41)
[2022-06-02 06:47] LABS: HEMATOCRIT 25.7 % (36.7-47.1); MEAN CORPUSCULAR HEMOGLOBIN 27.4 uug (23.8-33.4); MEAN CORPUSCULAR VOLUME 88.9 fL (73.0-96.2); PLATELET COUNT (AUTO) 392 K/uL (152-348)
--- NOTE | 2022-06-02 06:52 | NUR ---
temp 101 axillary. Tylenol 650 mg given via Gtube. Will monitor patient's temp.
[2022-06-02 07:07] LABS: CREATININE 1.1 mg/dL (0.6-1.3); MAGNESIUM 2.8 mg/dL (1.8-2.4); PHOSPHOROUS 4.5 mg/dL (2.5-4.9); POTASSIUM 5.5 mmol/L (3.5-5.1)
--- NOTE | 2022-06-02 07:45 | NUR ---
PATIENT REMAINS OBTUNDED ON 10L O2 VIA TRACH SATURATING 95%, NO SIGNS OF PAIN OR ANY DISTRESS. JEVITY 1.2 VIA GT X22 HRS. NO SIGNS OF RESIDUAL. ST ON MONITOR AT 105-108/MIN. CONTINUE PLAN OF CARE ORDERED
[2022-06-02] MEDS: PANTOPRAZOLE ORAL SUSPENSION 40 MG SUSPDR.PKT GT SCH (09:23)
[2022-06-02] MEDS: ACIDOPHILUS/BULGARICUS CHEW TAB GT SCH ×2 (09:23→21:52)
[2022-06-02] MEDS: FUROSEMIDE 40 MG/4 ML VIAL IVP SCH (09:23)
[2022-06-02] MEDS: NYSTATIN SUSPENSION 5 ML LIQUID UDC PO SCH ×4 (09:23→21:52)
[2022-06-02] MEDS: MINERAL OIL/PETROLAT OPHT OINT 3.5 GM TUBE LEFTEYE SCH ×2 (09:24→21:53)
[2022-06-02] MEDS: POLYVINYL ALCOHOL OPHT DROPS 15 ML BOTTLE EACHEYE SCH ×3 (09:24→16:51)
[2022-06-02] MEDS: ALLOPURINOL 100 MG TABLET GT SCH (09:24)
[2022-06-02] MEDS: ENOXAPARIN SODIUM 30 MG/0.3 ML DISP.SYRIN SUBCUT SCH (09:28)
[2022-06-02 11:45] VITALS: BP 160/49
--- NOTE | 2022-06-02 13:00 | NUR ---
SEEN BY HOSPITALIST FOR FOLLOW-UP AND SPOKE WITH REGARDING PLAN OF CARE. SEE NOTES
[2022-06-02] MEDS: JEVITY 1.2 1000 ML LIQUID GT PRN ×2 (15:56→17:42)
--- NOTE | 2022-06-02 15:56 | NUR ---
PATIENT RESTING COMFORTABLY WITH 10L O2 VIA TRACH SATURATING 99%, WOUND CARE DONE LEFT MANDIBULAR AND BUTTOCKS WOUND. WOUND LEFT MANDIBULAR WITH TRACE OF SEROUS DRAINAGE NON FOWL, BUTTOCKS REMAINS CLEAN MEPILEX APPLIED. ON AIR MATTRESS. TOLERATING FEEDING WELL NO SIGNS OF RESIDUAL AT 70 MLS/HR. CONTINUE WITH IV ANTIBIOTIC NO ADVERSE REACTION. ST ON MONITOR 105-108/MIN
[2022-06-02 16:00] VITALS: BP 103/46
[2022-06-02 21:09] VITALS: BP 108/44
[2022-06-03] VITALS (11 sets, daily range): BP systolic 93–112; BP diastolic 31–50
[2022-06-03] MEDS: MEROPENEM 1 G in IV NORMAL SALINE 100 ML IV SCH ×3 (04:17→20:14)
[2022-06-03 07:26] LABS: CREATININE 1.9 mg/dL (0.6-1.3)
--- NOTE | 2022-06-03 07:39 | NUR ---
REMAINS OBTUNDED ON 10L O2 VIA TRACH NO SS OF PAIN OR RESPIRATORY DISTRESS. O2 SATS 99-100%. CONTINUE TELE MONITORING. DR ASKEW IN AND NOTED LABS WILL START ON NS 100 MLS/HR
[2022-06-03 08:44] LABS: HEMATOCRIT 23.8 % (36.7-47.1); MEAN CORPUSCULAR HEMOGLOBIN 27.3 uug (23.8-33.4); MEAN CORPUSCULAR VOLUME 89.8 fL (73.0-96.2); PLATELET COUNT (AUTO) 326 K/uL (152-348)
[2022-06-03 08:49] LABS: POTASSIUM 6.9 mmol/L (3.5-5.1)
[2022-06-03] MEDS: NYSTATIN SUSPENSION 5 ML LIQUID UDC PO SCH ×4 (09:00→20:39)
[2022-06-03] MEDS: PANTOPRAZOLE ORAL SUSPENSION 40 MG SUSPDR.PKT GT SCH (09:06)
[2022-06-03] MEDS: ENOXAPARIN SODIUM 30 MG/0.3 ML DISP.SYRIN SUBCUT SCH (09:06)
[2022-06-03] MEDS: ACETAMINOPHEN 325 MG TABLET GT PRN ×2 (09:06→18:02)
[2022-06-03] MEDS: FUROSEMIDE 40 MG/4 ML VIAL IVP SCH (09:06)
[2022-06-03] MEDS: ACIDOPHILUS/BULGARICUS CHEW TAB GT SCH ×2 (09:07→20:38)
[2022-06-03] MEDS: POLYVINYL ALCOHOL OPHT DROPS 15 ML BOTTLE EACHEYE SCH ×3 (09:07→16:04)
[2022-06-03] MEDS: MINERAL OIL/PETROLAT OPHT OINT 3.5 GM TUBE LEFTEYE SCH ×2 (09:08→20:39)
[2022-06-03] MEDS: ALLOPURINOL 100 MG TABLET GT SCH (09:08)
[2022-06-03] MEDS: JEVITY 1.2 1000 ML LIQUID GT PRN (09:09)
[2022-06-03] MEDS: REMEDY ESSENTIAL ZINC PASTE 113 GM TOP PRN (09:09)
[2022-06-03 09:47] LABS: BILIRUBIN,DIRECT 0.1 mg/dL (0.0-0.2); BILIRUBIN,TOTAL 0.2 mg/dL (0.2-1.0)
[2022-06-03] MEDS: IV 1/2NS 1000 ML 1,000 ML IV PRN (10:36)
[2022-06-03] MEDS ORDERED: IV D5/ 0.9% NACL 1,000 ML IV SCH (11:30)
--- NOTE | 2022-06-03 12:00 | NUR ---
FEVER OF 101.6 RECTALLY, COOLING MEASURES DONE DR CUMMINS AROUND AWAITING BLOOD CULTURESST ON MONITOR 105/MIN, O2 SATS 99-100 ON 10L VIA TRACH
--- NOTE | 2022-06-03 15:30 | NUR ---
HOSPITALIST NOTIFIED OF HH 9.08/19 WITH ORDER TO TRANSFUSE I UNIT PRBC IF NO FEVER. TEMP 97.4 CONSENT SIGNED BY
--- NOTE | 2022-06-03 17:36 | NUR ---
CONSENT FOR BLOOD TRANSFUSION GIVEN BY , BLOOD TRANSFUSION STARTED RIGHT UPPER ARMCLOSELY MONITORED
--- NOTE | 2022-06-03 18:03 | NUR ---
NO SISGNS OF BLOOD TRANSFUSION REACTION NOTED, CONTINUE ORDERED
--- NOTE | 2022-06-03 21:00 | NUR ---
received pt with ongoing blood transfusion; no reactions found and blood totally infused at 2130;
[2022-06-04] VITALS (31 sets, daily range): BP systolic 80–113; BP diastolic 41–57
--- NOTE | 2022-06-04 00:15 | NUR ---
BIB FROM 3RD FLOOR ,ON VENTILATOR, PT UNRESPONSIVE
--- NOTE | 2022-06-04 00:37 | NUR ---
2310 RN witnessed Patient's heart rate dropped to the 30's, oxygen saturation was in the 60's; suctioned secretions; oxygen did not go up; pt is non responsive to stimuli; no pulse detected; code blue has been called; chest compressions started; blood sugar 220; Code team arrived; RT bagged pt; saturation came up to the 90's; patient had a pulse, BP 100/60; Dr Young decided that pt has to be connected to the vent and be transferred to CCU; trache changed from uncuffed Shiley 6 to cuffed Shiley 6; Primary Md paged; XRAY and EKG done 19 Pt has been transferred to CCU bed 1; Report given to Miley LONG ; Charge Nurse spoke to pt's daughter Santosh and is aware with trhe need for transfer to CCU.
--- NOTE | 2022-06-04 00:45 | NUR ---
CALLED BY NURSING 23:09 APPROX, PT IN RESP. DISTRESS ,SAT DROP, ON ROUTE CODE ENOCH CALLED, 23:10. CPR IN PROGRESS , AMBU IN PLACE BY RT , ON 100% 02, WITH COMPRESSIONS, , PULSE BACK, PT WITH CUFFLESS TRACH, NEED TO CHANGE TRACH WITH CUFF, FOR VENTILATOR , MICHAEL # 6 TRACH INSERTED; PATIENT THEN TRANSFERRED TO CCU 1 WITH RT ASSIST , WITH INITIAL VENT SETTINGS, A/C 16, VT 500ML, 100%, PEEP5, THEN ABG, , PO2 282 APPROX, DECREASED TO 50%, @ 01:50 ; NOTIFIED JEANETTE Mccullough, THEN CALLING DOCTOR. Marielos ALBERTOP Addendum: 06/04/22 at 0153 by MARISA HARRINGTON RT Amended: Links added.
[2022-06-04] MEDS: IV 1/2NS 1000 ML 1,000 ML IV PRN ×3 (01:36→20:30)
--- NOTE | 2022-06-04 02:04 | NUR ---
INFORMED OF PT CODING AND OF TX TO ICU, ORDERS OBTAINED
[2022-06-04] MEDS ORDERED: NOREPINEPHRINE BITARTRATE 8 MG in IV NORMAL SALINE 242 ML IV PRN ×2 (02:15→02:30)
[2022-06-04] MEDS: MEROPENEM 1 G in IV NORMAL SALINE 100 ML IV SCH ×3 (04:24→20:28)
[2022-06-04 05:38] LABS: HEMATOCRIT 24.8 % (36.7-47.1); MEAN CORPUSCULAR HEMOGLOBIN 27.3 uug (23.8-33.4); MEAN CORPUSCULAR VOLUME 88.5 fL (73.0-96.2); PLATELET COUNT (AUTO) 249 K/uL (152-348)
[2022-06-04 05:57] LABS: PHOSPHOROUS 5.5 mg/dL (2.5-4.9)
[2022-06-04] MEDS ORDERED: SODIUM POLYSTYRENE SULFONATE 15 G/60 ML LIQUID UDC PO ONE (06:45)
--- NOTE | 2022-06-04 06:45 | NUR ---
DR. CARDENAS INFORMED OF LOW B/P ORDERS OBTAINED
--- NOTE | 2022-06-04 07:30 | NUR ---
REPORT GIVEN TO MERCEDES WU
--- NOTE | 2022-06-04 08:39 | NUR ---
Very large BM soft brown. Cleaned and repositioned. ED MD in to place emergency dialysis access.
[2022-06-04] MEDS: NYSTATIN SUSPENSION 5 ML LIQUID UDC PO SCH ×4 (09:00→20:33)
[2022-06-04] MEDS: MINERAL OIL/PETROLAT OPHT OINT 3.5 GM TUBE LEFTEYE SCH ×2 (09:00→20:38)
[2022-06-04] MEDS ORDERED: SODIUM BICARBONATE 8.4% 50 MEQ/50 ML DISP.SYRIN IV ONE ×2 (09:15→11:00)
[2022-06-04 09:30] LABS: ABG BASE EXCESS 5.1 mmol/L; ABG HCO3 28.3 mmol/L; ABG PCO2 35.7 mmHg (35.0-45.0); ABG PH 7.517 (7.350-7.450); ABG PO2 69.5 mmHg (75.0-100.0); ABG SITE LEFT RADIAL; ABG TOTAL HEMOGLOBIN 7.9 G/dL (13.5-18.0); COHb 0.2 % (0.5-1.5); MetHb 0.2 % (0.0-1.5); O2Hb 95.2 % (94.0-97.0); VENT MODE VENT - A/C; VT, ABG 500 mL
[2022-06-04] MEDS: POLYVINYL ALCOHOL OPHT DROPS 15 ML BOTTLE EACHEYE SCH ×3 (10:32→16:42)
[2022-06-04] MEDS: FUROSEMIDE 40 MG/4 ML VIAL IVP SCH (10:33)
[2022-06-04] MEDS: ACIDOPHILUS/BULGARICUS CHEW TAB GT SCH ×2 (10:33→20:33)
[2022-06-04] MEDS: ALLOPURINOL 100 MG TABLET GT SCH (10:33)
[2022-06-04] MEDS: ENOXAPARIN SODIUM 30 MG/0.3 ML DISP.SYRIN SUBCUT SCH (10:35)
[2022-06-04] MEDS: PANTOPRAZOLE ORAL SUSPENSION 40 MG SUSPDR.PKT GT SCH (10:41)
--- NOTE | 2022-06-04 12:07 | NUR ---
to come and place Dialysis catheter. Family now at bedside updated on status by Deena LANDERS. Consent signed phone and witnessed by 2 nurses for dialysis.
[2022-06-04] MEDS ORDERED: HEPARIN SODIUM,PORCINE 5,000 UNITS/ML VIAL IV SCH (14:00)
[2022-06-04] MEDS ORDERED: ALBUMIN HUMAN 25% 100 ML IV PRN (16:15)
--- NOTE | 2022-06-04 16:36 | NUR ---
Dialysis catheter placed and dialysis at this time tolerating well. Stat K 4.9. No changes during shift on ventilator rate 16, TV 500, FIO2 50% with a peep of 5. Oxygen saturation is >96 remains pink, warm, and dry to touch. 2 large loose bowel movements.
[2022-06-04] MEDS ORDERED: NOREPINEPHRINE BITARTRATE 32 MG in IV NORMAL SALINE 218 ML IV PRN (21:00)
[2022-06-04 22:06] LABS: *BILIRUBIN,URIN NEGATIVE (NEGATIVE); *BLOOD, URINE 2+ (NEGATIVE); *CLARITY,URINE CLEAR (CLEAR); *COLOR,URINE YELLOW (YELLOW); *KETONES,URINE 1+ (NEGATIVE); *UROBILINOGEN,URINE 0.2 E.U./dl (NORMAL); LEUKOCYTE ESTERASE ,URINE NEGATIVE (NEGATIVE); NITRITE, URINE NEGATIVE (NEGATIVE); PH,URINE 5.5 (5.0-8.0); UGLUCOSE NEGATIVE (NEGATIVE)
[2022-06-04 22:16] LABS: *CREATININE,URINE 97.7 mg/dL (30-125); *URINE TOTAL PROTEIN RANDOM 117.3 mg/dL (<150/24HR)
[2022-06-04 23:03] LABS: BACTERIA,URINE FEW /HPF (NONE SEEN); SQUAMOUS EPITHELIAL CELL,UR FEW /HPF (NONE SEEN); WBC,URINE 0-3 /HPF (0-3)
[2022-06-05] VITALS (23 sets, daily range): BP systolic 92–123; BP diastolic 38–65
[2022-06-05] MEDS: MEROPENEM 1 G in IV NORMAL SALINE 100 ML IV SCH (04:09)
[2022-06-05 04:52] LABS: MEAN CORPUSCULAR VOLUME 85.2 fL (73.0-96.2)
[2022-06-05 04:55] LABS: MEAN CORPUSCULAR HEMOGLOBIN 27.6 uug (23.8-33.4); PLATELET COUNT (AUTO) 190 K/uL (152-348)
[2022-06-05 05:25] LABS: HEMATOCRIT 20.3 % (36.7-47.1)
[2022-06-05 05:35] LABS: BILIRUBIN,TOTAL 0.4 mg/dL (0.2-1.0); CREATININE 2.3 mg/dL (0.6-1.3); MAGNESIUM 2.2 mg/dL (1.8-2.4); PHOSPHOROUS 5.6 mg/dL (2.5-4.9); POTASSIUM 4.4 mmol/L (3.5-5.1); TOTAL PROTEIN, SERUM 5.5 g/dL (6.4-8.2)
[2022-06-05 05:57] LABS: LYMPHOCYTES % (MANUAL) 3 % (20-40); MONOCYTES % (MANUAL) 1 % (2-10); NEUTROPHILS % (MANUAL) 96 % (42-75)
[2022-06-05 06:02] LABS: ABG BASE EXCESS 4.8 mmol/L; ABG HCO3 27.5 mmol/L; ABG PCO2 34.8 mmHg (35.0-45.0); ABG PH 7.516 (7.350-7.450); ABG PO2 79.3 mmHg (75.0-100.0); ABG SITE RIGHT RADIAL; VENT MODE VENT - A/C; VT, ABG 500 mL
[2022-06-05 08:07] LABS: HEPATITIS B SURFACE AG Negative (Negative)
[2022-06-05] MEDS: NYSTATIN SUSPENSION 5 ML LIQUID UDC PO SCH ×4 (08:57→21:00)
[2022-06-05] MEDS: PANTOPRAZOLE ORAL SUSPENSION 40 MG SUSPDR.PKT GT SCH (08:57)
[2022-06-05] MEDS: FUROSEMIDE 40 MG/4 ML VIAL IVP SCH (08:58)
[2022-06-05] MEDS: POLYVINYL ALCOHOL OPHT DROPS 15 ML BOTTLE EACHEYE SCH ×3 (08:58→16:45)
[2022-06-05] MEDS: ACIDOPHILUS/BULGARICUS CHEW TAB GT SCH ×2 (08:58→21:29)
[2022-06-05] MEDS: MINERAL OIL/PETROLAT OPHT OINT 3.5 GM TUBE LEFTEYE SCH ×2 (08:59→21:29)
[2022-06-05] MEDS: ENOXAPARIN SODIUM 30 MG/0.3 ML DISP.SYRIN SUBCUT SCH (09:00)
[2022-06-05] MEDS: ALLOPURINOL 100 MG TABLET GT SCH (09:17)
--- NOTE | 2022-06-05 09:31 | NUR ---
Called lab verified received order for 1 unit PRBC. Spoke with sanitary engineering teacher via telephone attempting to coordinate care.
[2022-06-05] MEDS ORDERED: VANCOMYCIN IV 500 MG in IV DEXTROSE 5% 100 ML IV PRN (10:45)
--- NOTE | 2022-06-05 13:09 | NUR ---
Dialysis at this time tolerating well no reactions from blood transfusion.
--- NOTE | 2022-06-05 13:26 | NUR ---
No free water at this time via g tube dialysis in process at bedside.
[2022-06-05] MEDS ORDERED: VANCOMYCIN IV 500 MG in IV DEXTROSE 5% 100 ML IV ONE (14:00)
[2022-06-05] MEDS: MEROPENEM 0.5 G in IV NORMAL SALINE 50 ML IV SCH (14:54)
--- NOTE | 2022-06-05 15:13 | NUR ---
Completed dialysis b/p 95/65 heart rate 84 remains on ventilator to trach, rate 16, TV 500, Peep 5, and FIO2 40%. Oxygen saturation >97%. 1 unit of PRBCs infused today tolerated well continues on IV antibiotics see jul.
--- NOTE | 2022-06-05 15:36 | NUR ---
Family at bedside updated on status. Massaging and applying lotion to hands and feet.
[2022-06-05] MEDS ORDERED: EPOETIN ALFA 10,000 UNITS/ML VIAL SQ SCH (18:15)
[2022-06-05] MEDS ORDERED: EPOETIN ALFA-EPBX 10,000 UNIT/ML VIAL SQ SCH (18:45)
[2022-06-06] VITALS (22 sets, daily range): BP systolic 10–133; BP diastolic 45–75
[2022-06-06 04:49] LABS: HEMATOCRIT 22.9 % (36.7-47.1); MEAN CORPUSCULAR HEMOGLOBIN 27.6 uug (23.8-33.4); MEAN CORPUSCULAR VOLUME 84.4 fL (73.0-96.2); PLATELET COUNT (AUTO) 190 K/uL (152-348)
[2022-06-06 04:55] LABS: CREATININE 1.9 mg/dL (0.6-1.3); POTASSIUM 3.7 mmol/L (3.5-5.1)
--- NOTE | 2022-06-06 07:00 | NUR ---
Recieved patient from table games shift manager nurse pt is on ventilator with trach portex 6 settings AC 16 TV 450 FIO2 40% PEEP 5. IV at TKO. Pt is resing comfortably at this time
[2022-06-06] MEDS: NYSTATIN SUSPENSION 5 ML LIQUID UDC PO SCH ×4 (08:18→20:40)
[2022-06-06] MEDS: ALLOPURINOL 100 MG TABLET GT SCH (08:18)
[2022-06-06] MEDS: PANTOPRAZOLE ORAL SUSPENSION 40 MG SUSPDR.PKT GT SCH (08:18)
[2022-06-06] MEDS: ACIDOPHILUS/BULGARICUS CHEW TAB GT SCH ×2 (08:18→20:39)
[2022-06-06] MEDS: FUROSEMIDE 40 MG/4 ML VIAL IVP SCH (08:19)
[2022-06-06] MEDS: ENOXAPARIN SODIUM 30 MG/0.3 ML DISP.SYRIN SUBCUT SCH (08:25)
[2022-06-06] MEDS: MINERAL OIL/PETROLAT OPHT OINT 3.5 GM TUBE LEFTEYE SCH ×2 (08:27→20:40)
[2022-06-06] MEDS: POLYVINYL ALCOHOL OPHT DROPS 15 ML BOTTLE EACHEYE SCH ×3 (08:28→17:24)
--- NOTE | 2022-06-06 11:15 | NUR ---
Dr Humphrey saw the pt and was updated on his condition.
--- NOTE | 2022-06-06 11:15 | NUR ---
Tube feeding restared with Jevity at 30ml/hr per orders from Dr Humphrey.
[2022-06-06] MEDS: MEROPENEM 0.5 G in IV NORMAL SALINE 50 ML IV SCH (14:08)
[2022-06-07] VITALS (59 sets, daily range): BP systolic 82–165; BP diastolic 36–89
[2022-06-07 05:06] LABS: HEMATOCRIT 24.2 % (36.7-47.1); MEAN CORPUSCULAR HEMOGLOBIN 26.7 uug (23.8-33.4); MEAN CORPUSCULAR VOLUME 85.3 fL (73.0-96.2); PLATELET COUNT (AUTO) 199 K/uL (152-348)
[2022-06-07 05:19] LABS: CREATININE 1.8 mg/dL (0.6-1.3); POTASSIUM 3.6 mmol/L (3.5-5.1)
[2022-06-07] MEDS ORDERED: EPOETIN ALFA-EPBX 10,000 UNIT/ML VIAL SQ PRN (06:00)
[2022-06-07] MEDS ORDERED: ALBUTEROL SULFATE 1.25 MG/3 ML NEBU NEB PRN (06:00)
--- NOTE | 2022-06-07 06:40 | NUR ---
Received patient from night day shift nurse on ventilator with trach portex 6 settings AC 16 TV 450 FIO2 40% PEEP 5. IV at TKO. Pt remained obtunded and unresponsive. His eyes are open but there is no response to tactile and verbal stimulation. Pt is on a special air mattress. Tube feeding @ 30 mls. Vitals signs remained stable throughout the shift. Report endorsed to dayshift RN.
--- NOTE | 2022-06-07 07:15 | NUR ---
Received Pt. in a semicomatose state, opening eyes spontaneously does not follow commands, or responds to name but able to reach Trache site and able to push it. Hemodynamically stable rate in the 80's, 90's. SBP in the low 90's. low 100's no need of vasopressors. flores to gravity, PEG in place feeding running, with zero residuals upon inspection. LAKEISHA ML patent. Will continue to monitor. Addendum: 06/07/22 at 1429 by MARIA D ZURITA RN As per nurse report feeding to be run at 30ml/hr. As ordered by Dr. Angel. Cardiology services.
[2022-06-07] MEDS: ACIDOPHILUS/BULGARICUS CHEW TAB GT SCH ×2 (08:14→20:10)
[2022-06-07] MEDS: FUROSEMIDE 40 MG/4 ML VIAL IVP SCH (08:14)
[2022-06-07] MEDS: ALLOPURINOL 100 MG TABLET GT SCH (08:14)
[2022-06-07] MEDS: NYSTATIN SUSPENSION 5 ML LIQUID UDC PO SCH ×4 (08:14→20:10)
[2022-06-07] MEDS: PANTOPRAZOLE ORAL SUSPENSION 40 MG SUSPDR.PKT GT SCH (08:15)
[2022-06-07] MEDS: POLYVINYL ALCOHOL OPHT DROPS 15 ML BOTTLE EACHEYE SCH ×3 (08:30→16:06)
[2022-06-07] MEDS: MINERAL OIL/PETROLAT OPHT OINT 3.5 GM TUBE LEFTEYE SCH ×2 (08:31→20:11)
[2022-06-07] MEDS ORDERED: ENOXAPARIN SODIUM 30 MG/0.3 ML DISP.SYRIN SUBCUT SCH (09:00)
--- NOTE | 2022-06-07 09:10 | NUR ---
Microarray Operations Vice President Dr. Farfan in the unit to follow up on pt. Report given and at this time as stated by Md. HD procedure will be stop due to improved urine output and steady lab results. (bun, Creatinine).
--- NOTE | 2022-06-07 10:58 | NUR ---
Pt's and daughter at bedside.
[2022-06-07] MEDS ORDERED: VANCOMYCIN IV 500 MG in IV DEXTROSE 5% 100 ML IV ONE (11:30)
[2022-06-07] MEDS ORDERED: PHENYLEPHRINE IV 100 MG in IV NORMAL SALINE 240 ML IV PRN (12:15)
--- NOTE | 2022-06-07 14:30 | NUR ---
A call to cost accountant Loretta and She was informed about the feeding recommendations report received from cage shift manager nurse. She will follow up. Orders in [facility] reviewed and EMAR feeding is ordered at 70cc/hr.
--- NOTE | 2022-06-07 14:45 | NUR ---
Dr. Zambrano be in the unit to see other patients, questioned about feeding orders for CCu1. not involved in the case Deena attending notified of the need for clarifications orders for feeding. Awaiting response.
[2022-06-07] MEDS: MEROPENEM 0.5 G in IV NORMAL SALINE 50 ML IV SCH (16:03)
--- NOTE | 2022-06-07 16:41 | NUR ---
A call back from Deena Duffy and orders to follow lyft driver recommendations for tube feeding. Addendum: 06/07/22 at 1642 by MARIA D ZURITA RN Marine Services Technician will be informed as well.
--- NOTE | 2022-06-07 18:50 | NUR ---
Left pt. On ventilator with no changes, saturation of 95-98% slightly tachypneic in the mid-20's. Hemodynamically now with levophed for SBP support. Feeding advanced this afternoon to 40cc/hr with goal to follow licensed plumber recommendations will endorse to incoming rn. Whaley to gravity with adequate output. Safety precautions implemented at all times.
[2022-06-07] MEDS: HEPARIN SODIUM,PORCINE 5,000 UNITS/ML VIAL SQ SCH (20:27)
[2022-06-08] VITALS (81 sets, daily range): BP systolic 93–145; BP diastolic 47–126
[2022-06-08] MEDS ORDERED: MEROPENEM 0.5 G in IV NORMAL SALINE 50 ML IV SCH ×4 (03:00)
[2022-06-08 05:17] LABS: HEMATOCRIT 28.1 % (36.7-47.1); MEAN CORPUSCULAR HEMOGLOBIN 26.1 uug (23.8-33.4); MEAN CORPUSCULAR VOLUME 85.2 fL (73.0-96.2); PLATELET COUNT (AUTO) 292 K/uL (152-348)
[2022-06-08 05:23] LABS: CREATININE 1.3 mg/dL (0.6-1.3); POTASSIUM 3.4 mmol/L (3.5-5.1)
[2022-06-08 05:26] LABS: MAGNESIUM 1.9 mg/dL (1.8-2.4); PHOSPHOROUS 4.2 mg/dL (2.5-4.9)
[2022-06-08 05:42] LABS: ABG BASE EXCESS 3.3 mmol/L; ABG HCO3 26.5 mmol/L; ABG PCO2 34.9 mmHg (35.0-45.0); ABG PH 7.498 (7.350-7.450); ABG PO2 114.7 mmHg (75.0-100.0); ABG SITE RIGHT RADIAL; ABG TOTAL HEMOGLOBIN 9.7 G/dL (13.5-18.0); COHb 0.3 % (0.5-1.5); MetHb 0.3 % (0.0-1.5); O2Hb 97.6 % (94.0-97.0); VENT MODE VENT - A/C; VT, ABG 450 mL
--- NOTE | 2022-06-08 06:47 | NUR ---
End of Shift Summary: I received the patient in bed. He does not appear to be in pain or distress. His vital signs are stable. Patient turned and repositioned. Whaley cathether is leaking. Patient is cleaded and made comfortable. Adequate urine output. Pt remains on 0.8 mcg of Neosynephrine for BP support. Report endorsed to Day shift RN.
--- NOTE | 2022-06-08 07:15 | NUR ---
Received pt. On ventilator A/C 16, Tv 450, Peep +5, FIO2 50% portex 6. saturation above 95%. Cardiac -villalta on NSR with SBP sustained above 90's with vasopressor support. G-T patent and feeding running will advanced to goal therapy. flores to gravity. wound to left mandibular area c.d.i. dressing in place. IV access patent will continue to monitor.
--- NOTE | 2022-06-08 07:45 | NUR ---
Conference Planning Manager Dr. Love in the unit to see and examine pt. no new orders received.
[2022-06-08] MEDS: FUROSEMIDE 40 MG/4 ML VIAL IVP SCH (08:20)
[2022-06-08] MEDS: POLYVINYL ALCOHOL OPHT DROPS 15 ML BOTTLE EACHEYE SCH ×3 (08:20→16:02)
[2022-06-08] MEDS: ACIDOPHILUS/BULGARICUS CHEW TAB GT SCH ×2 (08:20→20:23)
[2022-06-08] MEDS: PANTOPRAZOLE ORAL SUSPENSION 40 MG SUSPDR.PKT GT SCH (08:20)
[2022-06-08] MEDS: MINERAL OIL/PETROLAT OPHT OINT 3.5 GM TUBE LEFTEYE SCH ×2 (08:21→20:23)
[2022-06-08] MEDS: NYSTATIN SUSPENSION 5 ML LIQUID UDC PO SCH ×4 (08:22→20:23)
[2022-06-08] MEDS: ALLOPURINOL 100 MG TABLET GT SCH (08:22)
[2022-06-08] MEDS: HEPARIN SODIUM,PORCINE 5,000 UNITS/ML VIAL SQ SCH ×2 (08:24→20:42)
--- NOTE | 2022-06-08 09:00 | NUR ---
Pulmonary services, Dr. Baldwin in the unit to see and examine pt. report given and orders received and implemented.
[2022-06-08] MEDS ORDERED: POTASSIUM CHLORIDE 20 MEQ POWDER PACKET GT ONE ×2 (09:30→10:00)
--- NOTE | 2022-06-08 10:00 | NUR ---
Morning care and dressing changed done at this time patient tolerated poorly saturation down to 88%, patient noted to be tachypneic with shallow breathing. RT at bedside. and Rate decreased as ordered.
--- NOTE | 2022-06-08 10:40 | NUR ---
Current vent settings of Rate of 14, Tv450, FIO2 60% Will continue to monitor.
--- NOTE | 2022-06-08 10:43 | NUR ---
With morning care and dressing changes done this morning pt. did not tolerated well and started to desaturate. Dr. Baldwin called and notified orders to increase FIO2 to maintain Saturation above 92% received and if pt. needed it Peep should be increase to 8 RT Jose at bedside and informed as well.
[2022-06-08] MEDS ORDERED: VANCOMYCIN IV 500 MG in IV DEXTROSE 5% 100 ML IV ONE (12:30)
[2022-06-08] MEDS: MEROPENEM 1 G in IV NORMAL SALINE 100 ML IV SCH (15:14)
[2022-06-09] VITALS (26 sets, daily range): BP systolic 93–130; BP diastolic 47–74
--- NOTE | 2022-06-09 00:36 | NUR ---
FIO2 down to 50%. pt's saturation of 98%.
[2022-06-09] MEDS: MEROPENEM 1 G in IV NORMAL SALINE 100 ML IV SCH ×2 (02:22→14:00)
[2022-06-09] MEDS: JEVITY 1.2 1000 ML LIQUID GT PRN (03:36)
[2022-06-09 05:18] LABS: HEMATOCRIT 27.4 % (36.7-47.1); MEAN CORPUSCULAR HEMOGLOBIN 27.4 uug (23.8-33.4); MEAN CORPUSCULAR VOLUME 86.9 fL (73.0-96.2); PLATELET COUNT (AUTO) 239 K/uL (152-348)
[2022-06-09 05:23] LABS: CREATININE 1.2 mg/dL (0.6-1.3); MAGNESIUM 1.7 mg/dL (1.8-2.4); PHOSPHOROUS 3.6 mg/dL (2.5-4.9); POTASSIUM 4.1 mmol/L (3.5-5.1)
--- NOTE | 2022-06-09 06:21 | NUR ---
Patient resting, Remains on ventilator A/C 14, Tv450, 50% FIO2 Peep+5. no respiratory distress. Hemodynamically stable SBP within desired limits. Off levophed since 06/08/22 2200. Whaley to gravity adequate urine output.Iv line patent. Will endorse for continuity of care.
[2022-06-09 08:46] LABS: ABG HCO3 26.8 mmol/L; ABG PCO2 37.8 mmHg (35.0-45.0); ABG PH 7.469 (7.350-7.450); ABG PO2 133.8 mmHg (75.0-100.0); ABG SITE RIGHT RADIAL; ABG TOTAL HEMOGLOBIN 9.6 G/dL (13.5-18.0); COHb 0.3 % (0.5-1.5); MetHb 0.5 % (0.0-1.5); O2Hb 97.6 % (94.0-97.0); VENT MODE VENT - A/C; VT, ABG 450 mL
[2022-06-09] MEDS: ALLOPURINOL 100 MG TABLET GT SCH (08:53)
[2022-06-09] MEDS: NYSTATIN SUSPENSION 5 ML LIQUID UDC PO SCH ×4 (08:53→21:17)
[2022-06-09] MEDS: FUROSEMIDE 40 MG/4 ML VIAL IVP SCH (08:53)
[2022-06-09] MEDS: PANTOPRAZOLE ORAL SUSPENSION 40 MG SUSPDR.PKT GT SCH (08:53)
[2022-06-09] MEDS: ACIDOPHILUS/BULGARICUS CHEW TAB GT SCH ×2 (08:53→21:17)
[2022-06-09] MEDS: POLYVINYL ALCOHOL OPHT DROPS 15 ML BOTTLE EACHEYE SCH ×3 (08:54→17:53)
[2022-06-09] MEDS: MINERAL OIL/PETROLAT OPHT OINT 3.5 GM TUBE LEFTEYE SCH ×2 (08:55→21:23)
[2022-06-09] MEDS: HEPARIN SODIUM,PORCINE 5,000 UNITS/ML VIAL SQ SCH ×2 (08:56→21:21)
[2022-06-09] MEDS: ACETAMINOPHEN 325 MG TABLET GT PRN ×2 (09:32→21:39)
[2022-06-09] MEDS: MAGNESIUM SULFATE/D5W 100 ML IV SCH ×2 (09:36→11:13)
[2022-06-09] MEDS: MICAFUNGIN SODIUM 100 MG in IV NORMAL SALINE 100 ML IV SCH (14:32)
[2022-06-10] VITALS (21 sets, daily range): BP systolic 96–134; BP diastolic 48–70
[2022-06-10] MEDS: MEROPENEM 1 G in IV NORMAL SALINE 100 ML IV SCH ×3 (03:32→21:51)
[2022-06-10 05:31] LABS: MAGNESIUM 1.9 mg/dL (1.8-2.4); PHOSPHOROUS 3.2 mg/dL (2.5-4.9); POTASSIUM 4.3 mmol/L (3.5-5.1)
[2022-06-10 05:33] LABS: HEMATOCRIT 26.3 % (36.7-47.1); MEAN CORPUSCULAR HEMOGLOBIN 27.6 uug (23.8-33.4); MEAN CORPUSCULAR VOLUME 87.1 fL (73.0-96.2); PLATELET COUNT (AUTO) 246 K/uL (152-348)
--- NOTE | 2022-06-10 06:24 | NUR ---
I received patient in bed and he is quiet and eyes closed. He is not interacting. Throughout the shift, he became more alert. He kept grabbing the trach. Pt maintains a normal blood pressure with no pressors. Report endorsed to keli LONG. Addendum: 06/10/22 at 0631 by JUDY VIEIRA RN Patient had a fever, treated with tylenol and Temp reverted to 98.2
[2022-06-10 07:21] LABS: ABG BASE EXCESS 6.1 mmol/L; ABG HCO3 30.2 mmol/L; ABG PCO2 41.7 mmHg (35.0-45.0); ABG PH 7.478 (7.350-7.450); ABG PO2 105.1 mmHg (75.0-100.0); ABG SITE LEFT RADIAL; ABG TOTAL HEMOGLOBIN 5.1 G/dL (13.5-18.0); COHb 0.2 % (0.5-1.5); MetHb 0.7 % (0.0-1.5); O2Hb 97.3 % (94.0-97.0); VENT MODE VENT - A/C; VT, ABG 450 mL
[2022-06-10] MEDS: VANCOMYCIN IV 1,000 MG in IV DEXTROSE 5% 250 ML IV SCH (08:01)
[2022-06-10] MEDS: FUROSEMIDE 40 MG/4 ML VIAL IVP SCH (08:17)
[2022-06-10] MEDS: ALLOPURINOL 100 MG TABLET GT SCH (08:17)
[2022-06-10] MEDS: NYSTATIN SUSPENSION 5 ML LIQUID UDC PO SCH ×4 (08:17→21:48)
[2022-06-10] MEDS: PANTOPRAZOLE ORAL SUSPENSION 40 MG SUSPDR.PKT GT SCH (08:17)
[2022-06-10] MEDS: ACIDOPHILUS/BULGARICUS CHEW TAB GT SCH ×2 (08:17→21:48)
[2022-06-10] MEDS: HEPARIN SODIUM,PORCINE 5,000 UNITS/ML VIAL SQ SCH ×2 (08:19→21:54)
[2022-06-10] MEDS: MINERAL OIL/PETROLAT OPHT OINT 3.5 GM TUBE LEFTEYE SCH ×2 (08:20→21:52)
[2022-06-10] MEDS: POLYVINYL ALCOHOL OPHT DROPS 15 ML BOTTLE EACHEYE SCH ×3 (08:20→16:57)
[2022-06-10] MEDS: MICAFUNGIN SODIUM 100 MG in IV NORMAL SALINE 100 ML IV SCH (14:41)
[2022-06-11] VITALS (24 sets, daily range): BP systolic 111–139; BP diastolic 54–69
[2022-06-11 05:16] LABS: HEMATOCRIT 27.3 % (36.7-47.1); MEAN CORPUSCULAR VOLUME 86.8 fL (73.0-96.2); PLATELET COUNT (AUTO) 259 K/uL (152-348)
[2022-06-11 05:50] LABS: CREATININE 0.9 mg/dL (0.6-1.3); MAGNESIUM 1.8 mg/dL (1.8-2.4); POTASSIUM 4.3 mmol/L (3.5-5.1)
[2022-06-11] MEDS: VANCOMYCIN IV 1,000 MG in IV DEXTROSE 5% 250 ML IV SCH (05:53)
[2022-06-11] MEDS: MEROPENEM 1 G in IV NORMAL SALINE 100 ML IV SCH ×3 (05:53→19:52)
[2022-06-11 06:13] LABS: PHOSPHOROUS 3.3 mg/dL (2.5-4.9)
--- NOTE | 2022-06-11 06:36 | NUR ---
End of Shift Summary Patient is noticeably more alert. He tracks the sound of your voice and makes eye contact. However, he is not able to communicate anything meaningful, verbally or non-verbally. He does not appear to be in pain. Patient turned and repositioned, meds administered. vital signs stable and report endorsed to day shift RN.
--- NOTE | 2022-06-11 07:00 | NUR ---
Received pt from item processor nurse. Pt is on ventilator with track. AC 14 TV 450 O2 35% PEEP 5. VS stable pt is not on pressors and tube feeding of Jevity 1.2 at 70cc/hr. Minimal secretions when suctioned.
[2022-06-11] MEDS: MINERAL OIL/PETROLAT OPHT OINT 3.5 GM TUBE LEFTEYE SCH ×2 (08:09→21:23)
[2022-06-11] MEDS: POLYVINYL ALCOHOL OPHT DROPS 15 ML BOTTLE EACHEYE SCH ×3 (08:09→17:04)
[2022-06-11] MEDS: PANTOPRAZOLE ORAL SUSPENSION 40 MG SUSPDR.PKT GT SCH (08:10)
[2022-06-11] MEDS: NYSTATIN SUSPENSION 5 ML LIQUID UDC PO SCH ×4 (08:10→21:23)
[2022-06-11] MEDS: ACIDOPHILUS/BULGARICUS CHEW TAB GT SCH ×2 (08:10→21:22)
[2022-06-11] MEDS: FUROSEMIDE 40 MG/4 ML VIAL IVP SCH (08:10)
[2022-06-11] MEDS: ALLOPURINOL 100 MG TABLET GT SCH (08:10)
[2022-06-11] MEDS: HEPARIN SODIUM,PORCINE 5,000 UNITS/ML VIAL SQ SCH ×2 (08:11→21:00)
[2022-06-11 08:53] LABS: ABG BASE EXCESS 5.5 mmol/L; ABG HCO3 29.2 mmol/L; ABG PCO2 38.7 mmHg (35.0-45.0); ABG PH 7.495 (7.350-7.450); ABG PO2 118.5 mmHg (75.0-100.0); ABG SITE RIGHT RADIAL; ABG TOTAL HEMOGLOBIN 9.5 G/dL (13.5-18.0); COHb 0.1 % (0.5-1.5); MetHb 0.3 % (0.0-1.5); VENT MODE VENT - A/C; VT, ABG 450 mL
[2022-06-11] MEDS: MICAFUNGIN SODIUM 100 MG in IV NORMAL SALINE 100 ML IV SCH (14:12)
--- NOTE | 2022-06-11 23:00 | NUR ---
STAUS STABLE. MOUTH CARE RENDERED, PT REPOSITIONED. HOB AT 30 DEGREES
[2022-06-12] VITALS (19 sets, daily range): BP systolic 102–149; BP diastolic 50–74
[2022-06-12] MEDS: VANCOMYCIN IV 1,000 MG in IV DEXTROSE 5% 250 ML IV SCH ×2 (00:01→21:23)
[2022-06-12] MEDS: MEROPENEM 1 G in IV NORMAL SALINE 100 ML IV SCH ×3 (04:18→21:22)
[2022-06-12 05:26] LABS: HEMATOCRIT 25.9 % (36.7-47.1); MEAN CORPUSCULAR HEMOGLOBIN 27.3 uug (23.8-33.4); MEAN CORPUSCULAR VOLUME 87.5 fL (73.0-96.2); PLATELET COUNT (AUTO) 259 K/uL (152-348)
[2022-06-12 05:43] LABS: CREATININE 0.8 mg/dL (0.6-1.3); MAGNESIUM 1.5 mg/dL (1.8-2.4); PHOSPHOROUS 2.8 mg/dL (2.5-4.9); POTASSIUM 4.1 mmol/L (3.5-5.1)
[2022-06-12 07:19] LABS: ABG BASE EXCESS 2.8 mmol/L; ABG HCO3 26.3 mmol/L; ABG PCO2 36.1 mmHg (35.0-45.0); ABG PH 7.481 (7.350-7.450); ABG PO2 98.3 mmHg (75.0-100.0); ABG SITE LEFT BRACHIAL; ABG TOTAL HEMOGLOBIN 9.2 G/dL (13.5-18.0); COHb 0.3 % (0.5-1.5); MetHb 0.3 % (0.0-1.5); O2Hb 96.8 % (94.0-97.0); VENT MODE VENT - A/C; VT, ABG 450 mL
--- NOTE | 2022-06-12 07:30 | NUR ---
Received pt. hemodynamically with SBP within desired limits, sinus tachycardia < 120. afebrile. On ventilator A/C 14, Tv 450 30%FIO2, and Peep +5. no respiratory distress noted. Peg patent and running with feeding at goal therapy. IV line patent. Patient soiled in stool, morning care provided, patient tolerated well. Whaley to gravity. Will continue with care.
--- NOTE | 2022-06-12 07:36 | NUR ---
Patient rested well through the night. due medications and care were given. no change in condition. Vital signs stable. Report given to Adina for continuous expert care.
[2022-06-12] MEDS: ALLOPURINOL 100 MG TABLET GT SCH (08:38)
[2022-06-12] MEDS: POLYVINYL ALCOHOL OPHT DROPS 15 ML BOTTLE EACHEYE SCH ×5 (08:38→21:56)
[2022-06-12] MEDS: ACIDOPHILUS/BULGARICUS CHEW TAB GT SCH ×2 (08:38→21:22)
[2022-06-12] MEDS: FUROSEMIDE 40 MG/4 ML VIAL IVP SCH (08:38)
[2022-06-12] MEDS: NYSTATIN SUSPENSION 5 ML LIQUID UDC PO SCH ×4 (08:39→21:22)
[2022-06-12] MEDS: HEPARIN SODIUM,PORCINE 5,000 UNITS/ML VIAL SQ SCH ×2 (08:39→21:24)
[2022-06-12] MEDS: MINERAL OIL/PETROLAT OPHT OINT 3.5 GM TUBE LEFTEYE SCH ×2 (08:40→21:57)
--- NOTE | 2022-06-12 08:40 | NUR ---
ID services. Dr. Cheek in the unit to examine. pt.
[2022-06-12] MEDS: PANTOPRAZOLE ORAL SUSPENSION 40 MG SUSPDR.PKT GT SCH (08:50)
--- NOTE | 2022-06-12 09:30 | NUR ---
Patient seen by Front Office Director Dr. Sandy Tang.
[2022-06-12] MEDS ORDERED: IV DEXTROSE 5% 500 ML IV ONE (10:00)
[2022-06-12] MEDS: MAGNESIUM SULFATE/D5W 100 ML IV SCH ×2 (10:35→11:21)
--- NOTE | 2022-06-12 11:40 | NUR ---
Patient seen by Hoisting Laborer Dr. Steinberg. report given orders to continue with care plan received.
[2022-06-12] MEDS: EPOETIN ALFA-EPBX 10,000 UNIT/ML VIAL SQ SCH (14:23)
--- NOTE | 2022-06-12 15:30 | NUR ---
Attending Bradley Maxwell in the unit to examine pt. report given orders received, and at this time pt's and daughter updated by her.
[2022-06-12] MEDS: MICAFUNGIN SODIUM 100 MG in IV NORMAL SALINE 100 ML IV SCH (15:46)
[2022-06-12] MEDS: ASCORBIC ACID 500 MG TABLET PO SCH (15:47)
[2022-06-12] MEDS: THERAHONEY GEL 1.5 OZ TUBE TOP SCH (18:04)
[2022-06-13] VITALS (12 sets, daily range): BP systolic 108–137; BP diastolic 49–61
[2022-06-13] MEDS: MEROPENEM 1 G in IV NORMAL SALINE 100 ML IV SCH ×3 (04:22→20:29)
[2022-06-13 04:57] LABS: HEMATOCRIT 25.7 % (36.7-47.1); MEAN CORPUSCULAR HEMOGLOBIN 27.5 uug (23.8-33.4); MEAN CORPUSCULAR VOLUME 85.9 fL (73.0-96.2); PLATELET COUNT (AUTO) 259 K/uL (152-348)
[2022-06-13 05:10] LABS: CREATININE 0.8 mg/dL (0.6-1.3); MAGNESIUM 1.9 mg/dL (1.8-2.4); PHOSPHOROUS 2.8 mg/dL (2.5-4.9); POTASSIUM 3.8 mmol/L (3.5-5.1)
--- NOTE | 2022-06-13 07:15 | NUR ---
Received pt. on ventilator A/C of 14, Tv 450 Peep +5, FIO2 30%. saturation within desired limits. G-t in place and running with feeding at goal therapy, no residuals upon assessment. Neuro-villalta patient remains semi-comatose, but moving left hand un-purposeful does not track or follows commands. Hemodynamically on sinus tachy in the low 100's. Afebrile for the shift. Will continue with care plan.
[2022-06-13] MEDS: ACIDOPHILUS/BULGARICUS CHEW TAB GT SCH ×2 (08:04→20:38)
[2022-06-13] MEDS: ALLOPURINOL 100 MG TABLET GT SCH (08:04)
[2022-06-13] MEDS: FUROSEMIDE 40 MG/4 ML VIAL IVP SCH (08:04)
[2022-06-13] MEDS: ASCORBIC ACID 500 MG TABLET PO SCH (08:04)
[2022-06-13] MEDS: NYSTATIN SUSPENSION 5 ML LIQUID UDC PO SCH ×4 (08:06→20:38)
[2022-06-13] MEDS: PANTOPRAZOLE ORAL SUSPENSION 40 MG SUSPDR.PKT GT SCH (08:09)
[2022-06-13] MEDS: MINERAL OIL/PETROLAT OPHT OINT 3.5 GM TUBE LEFTEYE SCH ×2 (08:10→20:38)
[2022-06-13] MEDS: HEPARIN SODIUM,PORCINE 5,000 UNITS/ML VIAL SQ SCH ×2 (08:10→20:42)
[2022-06-13] MEDS: THERAHONEY GEL 1.5 OZ TUBE TOP SCH (08:11)
--- NOTE | 2022-06-13 10:00 | NUR ---
Patient seen by orthopedic specialist, Dr. Steinberg.
--- NOTE | 2022-06-13 13:00 | NUR ---
Patient seen by ID services Dr. Cheek.
--- NOTE | 2022-06-13 15:00 | NUR ---
Attending Alissa Schaefer in the unit to see and examine pt. report given orders to continue with care plan received. Addendum: 06/13/22 at 1844 by MARIA D ZURITA RN At this time pt's updated by Bradley
[2022-06-13] MEDS: MICAFUNGIN SODIUM 100 MG in IV NORMAL SALINE 100 ML IV SCH (15:03)
[2022-06-13] MEDS: ACETAMINOPHEN 325 MG TABLET GT PRN (15:04)
[2022-06-13] MEDS: VANCOMYCIN IV 1,000 MG in IV DEXTROSE 5% 250 ML IV SCH (16:07)
[2022-06-13] MEDS: POLYVINYL ALCOHOL OPHT DROPS 15 ML BOTTLE EACHEYE SCH (16:10)
--- NOTE | 2022-06-13 18:49 | NUR ---
Left pt. on ventilator A/C of 14, Tv 450 Peep +5, FIO2 30%. saturation within desired limits. G-t in place and running with feeding at goal therapy, no residuals. Neuro-villalta patient remains semi-comatose does not track or follows commands. Hemodynamically stable. Afebrile for the shift. Skin over all with dressing changes done as order, will endorse to incoming shift.
[2022-06-14] VITALS (8 sets, daily range): BP systolic 103–154; BP diastolic 49–72
[2022-06-14] MEDS: MEROPENEM 1 G in IV NORMAL SALINE 100 ML IV SCH ×3 (04:01→20:30)
[2022-06-14] MEDS: ACETAMINOPHEN 325 MG TABLET GT PRN ×2 (04:54→21:32)
[2022-06-14 05:14] LABS: HEMATOCRIT 26.2 % (36.7-47.1); MEAN CORPUSCULAR HEMOGLOBIN 27.5 uug (23.8-33.4); MEAN CORPUSCULAR VOLUME 85.9 fL (73.0-96.2); PLATELET COUNT (AUTO) 269 K/uL (152-348)
[2022-06-14 05:15] LABS: CREATININE 0.8 mg/dL (0.6-1.3); MAGNESIUM 1.6 mg/dL (1.8-2.4); PHOSPHOROUS 2.9 mg/dL (2.5-4.9); POTASSIUM 4.1 mmol/L (3.5-5.1)
--- NOTE | 2022-06-14 06:52 | NUR ---
Pt had a relatively uneventful shift. Pt remains unresponsive to verbal and tactile stimuli. Pt is CELI status. No signs of distress noted. Pt's vent settings were AC14, TV450, Peep 4, FIO2 -30%. Pt report will be endorsed to incoming shift.
--- NOTE | 2022-06-14 07:10 | NUR ---
Received pt. On ventilator no changes from previous shifts Peep +5, FIO2 30% TV 450, Rate of 14 No slightly tachypneic with rate in the upper 20's saturation 97-98%.. Cardiac-villalta in sinus tachycardia low teens. sbp within desired limits. PEG in place and infusing with feeding running at goal therapy no residual, at this time, Patient soiled with large BM, morning care provided dressing to sacrum changed as well. Afebrile, IV line patent. Will continue with care plan.
[2022-06-14] MEDS: PANTOPRAZOLE ORAL SUSPENSION 40 MG SUSPDR.PKT GT SCH (08:10)
[2022-06-14] MEDS: NYSTATIN SUSPENSION 5 ML LIQUID UDC PO SCH ×4 (08:10→21:33)
[2022-06-14] MEDS: ACIDOPHILUS/BULGARICUS CHEW TAB GT SCH ×2 (08:10→21:32)
[2022-06-14] MEDS: ALLOPURINOL 100 MG TABLET GT SCH (08:10)
[2022-06-14] MEDS: FUROSEMIDE 40 MG/4 ML VIAL IVP SCH (08:10)
[2022-06-14] MEDS: ASCORBIC ACID 500 MG TABLET PO SCH (08:10)
[2022-06-14] MEDS: MINERAL OIL/PETROLAT OPHT OINT 3.5 GM TUBE LEFTEYE SCH ×2 (08:11→21:30)
[2022-06-14] MEDS: POLYVINYL ALCOHOL OPHT DROPS 15 ML BOTTLE EACHEYE SCH ×3 (08:11→16:02)
[2022-06-14] MEDS: THERAHONEY GEL 1.5 OZ TUBE TOP SCH (08:11)
[2022-06-14] MEDS: HEPARIN SODIUM,PORCINE 5,000 UNITS/ML VIAL SQ SCH ×2 (08:13→21:35)
[2022-06-14] MEDS: VANCOMYCIN IV 1,000 MG in IV DEXTROSE 5% 250 ML IV SCH (12:19)
[2022-06-14] MEDS: MAGNESIUM SULFATE/D5W 100 ML IV SCH ×2 (12:21→13:33)
[2022-06-14] MEDS: MICAFUNGIN SODIUM 100 MG in IV NORMAL SALINE 100 ML IV SCH (16:02)
--- NOTE | 2022-06-14 17:13 | NUR ---
received pt stable on current vent settings. trach care done and suctioned pt every vent checks. no new order received at this time.
--- NOTE | 2022-06-14 20:30 | NUR ---
PT IS RECEIVED IN BED WITHOUT DISTRESS. JULIEN TO VENT ORDERED AND TOLERATING SETTING.L O2SAT WNL AND IS NOTED ON NURSING FLOW RECORD. PT IS UNRESPONSIVE TO COMMAND. MOVES LEFT UPPER EXTREMITY AIMLESLY.CARDIAC MONITORNG ON BEDSIDE MONITOR SHOWS TACHYCARDIA 118. TEMP 00.5. WILL ADMINISTER TYLENOL ORDERED AND MONITOR HR, BP WNL AND NOTED ON NURSES FLOW RECORD. . PEG TUBE IS CLAMPED. VEGA CATH INTACT AND PAATEN. URINE IS YELLOW WITH ONE CLOT IN VEGA BAB.. ABD PAD ON L FACE IS DRY AND INTACT. INCONTINENT OF LARGE AMT OF LOOSE STOOL. WILL INFORM MD SKIN AND WOUND CARE RENDERED.
--- NOTE | 2022-06-14 21:00 | NUR ---
TF IN PROGRESS. HOB ELEVATED. NO DISTRESS. OFF LOAD R AND L HIPS AND B/L LOWER EXTREMITIES WITH PILLOWS. PT SUCTIONED SCANT AMT OF SCRETION. LAKEISHA PICC LINE IS INTACT AND PATENT. NS @ TKO
[2022-06-15] VITALS (13 sets, daily range): BP systolic 96–127; BP diastolic 51–68
[2022-06-15] MEDS: MEROPENEM 1 G in IV NORMAL SALINE 100 ML IV SCH ×3 (03:19→20:18)
[2022-06-15 05:02] LABS: HEMATOCRIT 25.7 % (36.7-47.1); MEAN CORPUSCULAR HEMOGLOBIN 26.9 uug (23.8-33.4); MEAN CORPUSCULAR VOLUME 86.5 fL (73.0-96.2); PLATELET COUNT (AUTO) 272 K/uL (152-348)
[2022-06-15 05:10] LABS: CREATININE 0.8 mg/dL (0.6-1.3); POTASSIUM 3.9 mmol/L (3.5-5.1)
[2022-06-15] MEDS: MORPHINE SULFATE 2 MG/1 ML DISP.SYRIN IV PRN (07:16)
--- NOTE | 2022-06-15 07:17 | NUR ---
MORPHISE SULFATE ADMINISTERED FOR S/S OF PAIN/ PATIENT FT ON HOLD PER PROTOCOL. PATIENT IS PREP-JARETH TO TRANSERB TO CELI. WILL GIVE REPOR TO AM NURSE AND TRANSFER PATIENT PER nURSING CARDIOPULMONARY TECHNICIAN AND EEG TECH VADIM.
--- NOTE | 2022-06-15 07:50 | NUR ---
RECEIVED PATIENT FROM ICU ACCOMPANIED BY RT AND REVERBERATORY FURNACE OPERATOR 0N MECHANICAL VENT, PORTEX #6 SETS AT 16,-450-30-5 SATURATING 100%. NO SS OF DISTRESS. CONTINUE WITH CELI STATUS ORDERED. ON GT FEEDING JEVITY 70 MLS/HR TOLERATING WELL. DRESSING LEFT SIDE OF FACE CLEAN AND DRY. ST ON MONITOR AFEBRILE
--- NOTE | 2022-06-15 08:12 | NUR ---
PT TRANSFERED PATIENT WAS TRANSFERED BY ACLS PROTOCOL ACCOMPANIED TO ROOM 412, DOY BY NORA RN AND RT..L PT IS IN NO DISTRESS. TOLERATES ACTIVITY. REPORT GIVEN TO QUINN. PT PLACED ON TELEMETRY.
[2022-06-15 09:11] LABS: ABG BASE EXCESS 5.1 mmol/L; ABG HCO3 29.3 mmol/L; ABG PCO2 41.9 mmHg (35.0-45.0); ABG PH 7.463 (7.350-7.450); ABG PO2 85.5 mmHg (75.0-100.0); ABG SITE RIGHT RADIAL; ABG TOTAL HEMOGLOBIN 8.6 G/dL (13.5-18.0); COHb 0.6 % (0.5-1.5); MetHb 0.3 % (0.0-1.5); O2Hb 95.6 % (94.0-97.0); VENT MODE VENT - A/C; VT, ABG 450 mL
[2022-06-15] MEDS: ASCORBIC ACID 500 MG TABLET PO SCH (09:22)
[2022-06-15] MEDS: ALLOPURINOL 100 MG TABLET GT SCH (09:22)
[2022-06-15] MEDS: VANCOMYCIN IV 1,000 MG in IV DEXTROSE 5% 250 ML IV SCH (09:22)
[2022-06-15] MEDS: PANTOPRAZOLE ORAL SUSPENSION 40 MG SUSPDR.PKT GT SCH (09:22)
[2022-06-15] MEDS: NYSTATIN SUSPENSION 5 ML LIQUID UDC PO SCH ×4 (09:22→20:51)
[2022-06-15] MEDS: ACIDOPHILUS/BULGARICUS CHEW TAB GT SCH ×2 (09:22→20:51)
[2022-06-15] MEDS: POLYVINYL ALCOHOL OPHT DROPS 15 ML BOTTLE EACHEYE SCH ×3 (09:23→16:27)
[2022-06-15] MEDS: FUROSEMIDE 40 MG/4 ML VIAL IVP SCH (09:23)
[2022-06-15] MEDS: MINERAL OIL/PETROLAT OPHT OINT 3.5 GM TUBE LEFTEYE SCH ×2 (09:24→20:54)
[2022-06-15] MEDS: THERAHONEY GEL 1.5 OZ TUBE TOP SCH (09:24)
[2022-06-15] MEDS: HEPARIN SODIUM,PORCINE 5,000 UNITS/ML VIAL SQ SCH ×2 (09:26→20:52)
--- NOTE | 2022-06-15 12:00 | NUR ---
NO ACUTE CHANGE FROM AM ASSESSMENT. WOUND CARE DONE ORDERED. REMAINS ST ON MONITOR
[2022-06-15] MEDS: MICAFUNGIN SODIUM 100 MG in IV NORMAL SALINE 100 ML IV SCH (14:16)
--- NOTE | 2022-06-15 17:04 | NUR ---
CONTINUE WITH CELI STATUS ORDERED, CLOSELY MONITORED
--- NOTE | 2022-06-15 20:00 | NUR ---
Received patient lying in bed. Non-verbal, flat affect. In no acute distress. No signs or symptoms of pain or SOB. Sinus tachy on tele with HR of 116/min. Trach to vent in place. GT feeding infusing. Right upper arm midline intact and patent. Dressing on left mandible area dry, intact and clean. Whaley catheter intact and draining via gravity. Turned and reposition for comfort. Safety measure initiated. Continue to monitor.
[2022-06-16] VITALS (9 sets, daily range): BP systolic 102–142; BP diastolic 51–63
[2022-06-16] MEDS: VANCOMYCIN IV 1,000 MG in IV DEXTROSE 5% 250 ML IV SCH (03:09)
[2022-06-16] MEDS: MEROPENEM 1 G in IV NORMAL SALINE 100 ML IV SCH ×3 (04:47→20:17)
[2022-06-16] MEDS: JEVITY 1.2 1000 ML LIQUID GT PRN (05:07)
--- NOTE | 2022-06-16 06:45 | NUR ---
No adverse effect noted from IV antibiotics. GT feeding and flushing well tolerated. Sinus tachy on tele with HR of 112/min. Whaley catheter intact and draining via gravity. Right upper arm midline remains intact and patent. Turned and reposition for comfort. Needs anticipated to and met. Safety measure maintained.
[2022-06-16 06:58] LABS: HEMATOCRIT 25.2 % (36.7-47.1); MEAN CORPUSCULAR HEMOGLOBIN 27.5 uug (23.8-33.4); MEAN CORPUSCULAR VOLUME 87.2 fL (73.0-96.2); PLATELET COUNT (AUTO) 299 K/uL (152-348)
[2022-06-16 07:19] LABS: CREATININE 0.9 mg/dL (0.6-1.3); MAGNESIUM 2.1 mg/dL (1.8-2.4); PHOSPHOROUS 2.6 mg/dL (2.5-4.9); POTASSIUM 4.1 mmol/L (3.5-5.1)
--- NOTE | 2022-06-16 08:00 | NUR ---
RESTING COMFORTABLY WITH VENT SETS AT 14-450-30-5 [address] 100%. ST ON MONITOR. TOLERATING FEEDING AT 70 MLS/HR. REPOSITONED FOR COMFORT. DRESSING LEFT SIDE OF FACE INTACT. CONTINUE CURRENT TX PLAN ORDERED
[2022-06-16] MEDS: ALLOPURINOL 100 MG TABLET GT SCH (09:27)
[2022-06-16] MEDS: ACIDOPHILUS/BULGARICUS CHEW TAB GT SCH ×2 (09:27→20:17)
[2022-06-16] MEDS: PANTOPRAZOLE ORAL SUSPENSION 40 MG SUSPDR.PKT GT SCH (09:27)
[2022-06-16] MEDS: ASCORBIC ACID 500 MG TABLET PO SCH (09:27)
[2022-06-16] MEDS: NYSTATIN SUSPENSION 5 ML LIQUID UDC PO SCH ×4 (09:28→20:17)
[2022-06-16] MEDS: MINERAL OIL/PETROLAT OPHT OINT 3.5 GM TUBE LEFTEYE SCH ×2 (09:28→20:18)
[2022-06-16] MEDS: FUROSEMIDE 40 MG/4 ML VIAL IVP SCH (09:28)
[2022-06-16] MEDS: THERAHONEY GEL 1.5 OZ TUBE TOP SCH (09:29)
[2022-06-16] MEDS: HEPARIN SODIUM,PORCINE 5,000 UNITS/ML VIAL SQ SCH ×2 (09:38→20:18)
[2022-06-16] MEDS: POLYVINYL ALCOHOL OPHT DROPS 15 ML BOTTLE EACHEYE SCH ×3 (09:39→16:09)
[2022-06-16] MEDS: ACETAMINOPHEN 325 MG TABLET GT PRN (11:36)
--- NOTE | 2022-06-16 12:00 | NUR ---
SEEN BY HOSPITALIST AND DR CUMMINS SEE NOTES
[2022-06-16] MEDS: MICAFUNGIN SODIUM 100 MG in IV NORMAL SALINE 100 ML IV SCH (16:39)
--- NOTE | 2022-06-16 18:00 | NUR ---
CONTINUE CELI STATUS, RESTING COMFORTABLY WITH CURRENT VENT SETTINGS. SATURATING 100%. REMAINS ST ON MONITOR . AFEBRILE
--- NOTE | 2022-06-16 20:00 | NUR ---
Received patient lying in bed. Non-verbal, flat affect. In no apparent distress. No signs or symptoms of pain or SOB. Sinus tachy on tele with HR of 118/min. Trach to vent in place. GT feeding infusing. Right upper arm midline intact and patent. Dressing on left mandible area clean, dry and intact. Whaley catheter intact and draining via gravity. Safety measure initiated. Continue to monitor.
[2022-06-17] VITALS (9 sets, daily range): BP systolic 106–130; BP diastolic 46–56
[2022-06-17] MEDS: VANCOMYCIN IV 1,000 MG in IV DEXTROSE 5% 250 ML IV SCH ×2 (00:44→20:07)
[2022-06-17] MEDS: MEROPENEM 1 G in IV NORMAL SALINE 100 ML IV SCH ×3 (03:09→21:53)
--- NOTE | 2022-06-17 05:59 | NUR ---
No adverse effect noted from IV antibiotics. GT feeding and flushing well tolerated. Sinus tachy on tele with HR of 117/min. Whaley catheter intact and draining via gravity. Right upper arm midline remains intact and patent. Safety measure maintained.
[2022-06-17 07:02] LABS: CREATININE 0.9 mg/dL (0.6-1.3); PHOSPHOROUS 2.6 mg/dL (2.5-4.9); POTASSIUM 4.1 mmol/L (3.5-5.1)
[2022-06-17 07:06] LABS: HEMATOCRIT 24.6 % (36.7-47.1); MEAN CORPUSCULAR VOLUME 87.1 fL (73.0-96.2); PLATELET COUNT (AUTO) 275 K/uL (152-348)
[2022-06-17] MEDS: ASCORBIC ACID 500 MG TABLET PO SCH (08:57)
[2022-06-17] MEDS: HEPARIN SODIUM,PORCINE 5,000 UNITS/ML VIAL SQ SCH ×2 (08:58→20:31)
[2022-06-17] MEDS: ACIDOPHILUS/BULGARICUS CHEW TAB GT SCH ×2 (08:58→20:30)
[2022-06-17] MEDS: ALLOPURINOL 100 MG TABLET GT SCH (08:58)
[2022-06-17] MEDS: PANTOPRAZOLE ORAL SUSPENSION 40 MG SUSPDR.PKT GT SCH (08:58)
[2022-06-17] MEDS: FUROSEMIDE 40 MG/4 ML VIAL IVP SCH (08:59)
[2022-06-17] MEDS: MINERAL OIL/PETROLAT OPHT OINT 3.5 GM TUBE LEFTEYE SCH ×2 (09:00→20:32)
[2022-06-17] MEDS: THERAHONEY GEL 1.5 OZ TUBE TOP SCH (09:00)
[2022-06-17] MEDS: POLYVINYL ALCOHOL OPHT DROPS 15 ML BOTTLE EACHEYE SCH ×3 (09:00→17:00)
--- NOTE | 2022-06-17 20:00 | NUR ---
Received patient lying in bed. Non-verbal, flat affect.Lying comfortably in bed. No signs or symptoms of pain or SOB. Sinus tachy on tele with HR of 123/min. GT feeding infusing. Right upper arm midline intact and patent. Whaley catheter intact and draining via gravity. Safety measure initiated. Continue to monitor.
[2022-06-17] MEDS: ACETAMINOPHEN 325 MG TABLET GT PRN (20:30)
[2022-06-18] MEDS: JEVITY 1.2 1000 ML LIQUID GT PRN ×2 (01:49→21:20)
[2022-06-18] MEDS: MEROPENEM 1 G in IV NORMAL SALINE 100 ML IV SCH ×3 (05:36→21:20)
[2022-06-18 05:45] VITALS: BP 101/59
--- NOTE | 2022-06-18 06:17 | NUR ---
No adverse effect noted from IV antibiotics. GT feeding and flushing well tolerated. Sinus tachy on tele with HR of 113/min. Whaley catheter intact and draining via gravity. Turned and repositioned for comfort. Safety measure maintained.
[2022-06-18 06:52] LABS: HEMATOCRIT 24.8 % (36.7-47.1); MEAN CORPUSCULAR VOLUME 88.3 fL (73.0-96.2); PLATELET COUNT (AUTO) 267 K/uL (152-348)
[2022-06-18 07:44] LABS: CREATININE 0.9 mg/dL (0.6-1.3); MAGNESIUM 2.1 mg/dL (1.8-2.4); PHOSPHOROUS 3.2 mg/dL (2.5-4.9); POTASSIUM 4.5 mmol/L (3.5-5.1)
[2022-06-18 07:56] VITALS: BP 111/51
[2022-06-18] MEDS: POLYVINYL ALCOHOL OPHT DROPS 15 ML BOTTLE EACHEYE SCH ×3 (09:00→16:20)
[2022-06-18] MEDS: MINERAL OIL/PETROLAT OPHT OINT 3.5 GM TUBE LEFTEYE SCH ×2 (09:00→21:21)
[2022-06-18] MEDS: THERAHONEY GEL 1.5 OZ TUBE TOP SCH (09:00)
[2022-06-18] MEDS: HEPARIN SODIUM,PORCINE 5,000 UNITS/ML VIAL SQ SCH ×2 (10:05→21:21)
[2022-06-18] MEDS: PANTOPRAZOLE ORAL SUSPENSION 40 MG SUSPDR.PKT GT SCH (10:06)
[2022-06-18] MEDS: ALLOPURINOL 100 MG TABLET GT SCH (10:06)
[2022-06-18] MEDS: ACIDOPHILUS/BULGARICUS CHEW TAB GT SCH ×2 (10:06→21:20)
[2022-06-18] MEDS: FUROSEMIDE 40 MG/4 ML VIAL IVP SCH (10:06)
[2022-06-18] MEDS: ASCORBIC ACID 500 MG TABLET PO SCH (10:06)
[2022-06-18] MEDS: ACETAMINOPHEN 325 MG TABLET GT PRN ×2 (11:11→21:20)
[2022-06-18 11:48] VITALS: BP 109/54
[2022-06-18 15:51] VITALS: BP 129/57
--- NOTE | 2022-06-18 19:51 | NUR ---
Received patient lying in bed. Non-verbal, flat affect. Afebrile. In no acute distress. No signs or symptoms of pain or SOB. Sinus tachy on tele with HR of 127/min. Trach to vent in place. GT feeding infusing. Whaley catheter intact and draining via gravity. Safety measure initiated. Continue to monitor.
[2022-06-18 20:00] VITALS: BP 125/55
[2022-06-18 23:52] VITALS: BP 112/54
[2022-06-19 04:55] VITALS: BP 120/56
[2022-06-19] MEDS: MEROPENEM 1 G in IV NORMAL SALINE 100 ML IV SCH ×3 (05:19→22:17)
--- NOTE | 2022-06-19 05:57 | NUR ---
Afebrile at this time. Latest temp 97.8 axillary. No adverse effect noted from IV antibiotics. GT feeding and flushing well tolerated. Sinus tachy on tele with HR of 112/min. Whaley catheter intact and draining via gravity. Safety measure maintained.
[2022-06-19 07:28] LABS: HEMATOCRIT 25.8 % (36.7-47.1); MEAN CORPUSCULAR HEMOGLOBIN 27.2 uug (23.8-33.4); MEAN CORPUSCULAR VOLUME 89.3 fL (73.0-96.2); PLATELET COUNT (AUTO) 259 K/uL (152-348)
[2022-06-19 07:41] VITALS: BP 133/66
[2022-06-19 07:43] LABS: MAGNESIUM 2.2 mg/dL (1.8-2.4); PHOSPHOROUS 3.3 mg/dL (2.5-4.9); POTASSIUM 4.3 mmol/L (3.5-5.1)
[2022-06-19] MEDS ORDERED: VANCOMYCIN IV 1,000 MG in IV DEXTROSE 5% 250 ML IV SCH (08:00)
[2022-06-19] MEDS: ASCORBIC ACID 500 MG TABLET PO SCH (08:50)
[2022-06-19] MEDS: ACIDOPHILUS/BULGARICUS CHEW TAB GT SCH ×2 (08:50→20:31)
[2022-06-19] MEDS: PANTOPRAZOLE ORAL SUSPENSION 40 MG SUSPDR.PKT GT SCH (08:50)
[2022-06-19] MEDS: FUROSEMIDE 40 MG/4 ML VIAL IVP SCH (08:50)
[2022-06-19] MEDS: ALLOPURINOL 100 MG TABLET GT SCH (08:50)
[2022-06-19] MEDS: POLYVINYL ALCOHOL OPHT DROPS 15 ML BOTTLE EACHEYE SCH ×3 (08:51→16:38)
[2022-06-19] MEDS: HEPARIN SODIUM,PORCINE 5,000 UNITS/ML VIAL SQ SCH ×2 (08:52→20:37)
[2022-06-19] MEDS: THERAHONEY GEL 1.5 OZ TUBE TOP SCH (08:54)
[2022-06-19] MEDS: MINERAL OIL/PETROLAT OPHT OINT 3.5 GM TUBE LEFTEYE SCH ×2 (09:18→20:32)
--- NOTE | 2022-06-19 10:00 | NUR ---
CRITICAL LAB VALUE REPORTED. AWARE.
[2022-06-19 11:24] VITALS: BP 120/56
[2022-06-19] MEDS ORDERED: SWABABLE VALVE TRANSFER SET EA MC ONE (12:33)
[2022-06-19] MEDS ORDERED: IOHEXOL 300MG/ML 100 ML INFUS..BTL ONE (12:33)
[2022-06-19] MEDS ORDERED: IV NORMAL SALINE 250 ML IV ONE (12:34)
--- NOTE | 2022-06-19 12:52 | NUR ---
PT WAS PICK BY [facility] FOR CT HEAD W/WO CONTRAST.
[2022-06-19] MEDS: EPOETIN ALFA-EPBX 10,000 UNIT/ML VIAL SQ SCH (14:37)
[2022-06-19] MEDS: ACETAMINOPHEN 325 MG TABLET GT PRN (15:34)
[2022-06-19 15:43] VITALS: BP 105/52
[2022-06-19] MEDS ORDERED: PAMIDRONATE DISODIUM 90 MG in IV NORMAL SALINE 500 ML IV ONE (16:00)
[2022-06-19] MEDS: JEVITY 1.2 1000 ML LIQUID GT PRN (18:26)
--- NOTE | 2022-06-19 18:34 | NUR ---
shift note. pt is in no acute distress. pt is bedbound; vent dependent; wound tx done; prn suction done; repositioned q2hr; oral care done; pending head ct, will notified dr. post when resulted. call light on bedside; bedrails up. safety measure maintained. will endorsed to noc shift.
--- NOTE | 2022-06-19 18:54 | NUR ---
pt have a subacute infract on the left mca and gael w/ hemorrhage. md notified.
[2022-06-19 20:08] VITALS: BP 123/53
[2022-06-19] MEDS: MORPHINE SULFATE 2 MG/1 ML DISP.SYRIN IV PRN (21:07)
[2022-06-20] MEDS: ACETAMINOPHEN 325 MG TABLET GT PRN ×3 (00:15→17:41)
[2022-06-20 00:26] VITALS: BP 123/52
[2022-06-20 04:42] VITALS: BP 118/48
[2022-06-20] MEDS: MEROPENEM 1 G in IV NORMAL SALINE 100 ML IV SCH ×2 (06:41→13:22)
[2022-06-20] MEDS: IV NS 1000 ML 1,000 ML IV PRN (06:52)
[2022-06-20 07:08] LABS: HEMATOCRIT 24.2 % (36.7-47.1); MEAN CORPUSCULAR HEMOGLOBIN 27.6 uug (23.8-33.4); MEAN CORPUSCULAR VOLUME 89.6 fL (73.0-96.2); PLATELET COUNT (AUTO) 238 K/uL (152-348)
[2022-06-20 07:23] LABS: CREATININE 0.9 mg/dL (0.6-1.3); POTASSIUM 4.6 mmol/L (3.5-5.1)
[2022-06-20] MEDS: ACIDOPHILUS/BULGARICUS CHEW TAB GT SCH ×2 (09:13→23:13)
[2022-06-20] MEDS: ALLOPURINOL 100 MG TABLET GT SCH (09:13)
[2022-06-20] MEDS: HEPARIN SODIUM,PORCINE 5,000 UNITS/ML VIAL SQ SCH ×2 (09:15→23:16)
[2022-06-20] MEDS: MINERAL OIL/PETROLAT OPHT OINT 3.5 GM TUBE LEFTEYE SCH (09:16)
[2022-06-20] MEDS: ASCORBIC ACID 500 MG TABLET PO SCH (09:16)
[2022-06-20] MEDS: FUROSEMIDE 40 MG/4 ML VIAL IVP SCH (09:16)
[2022-06-20] MEDS: THERAHONEY GEL 1.5 OZ TUBE TOP SCH (09:17)
[2022-06-20] MEDS: PANTOPRAZOLE ORAL SUSPENSION 40 MG SUSPDR.PKT GT SCH (09:19)
[2022-06-20] MEDS: POLYVINYL ALCOHOL OPHT DROPS 15 ML BOTTLE EACHEYE SCH ×3 (09:20→16:43)
[2022-06-20 11:29] VITALS: BP 93/49
[2022-06-20] MEDS ORDERED: IV NORMAL SALINE 250 ML IV ONE (14:20)
[2022-06-20] MEDS ORDERED: IOHEXOL 350 100 ML INFUS..BTL ONE (14:20)
[2022-06-20] MEDS ORDERED: SWABABLE VALVE TRANSFER SET EA MC ONE (14:20)
[2022-06-20] MEDS: JEVITY 1.2 1000 ML LIQUID GT PRN (14:22)
[2022-06-20 15:16] VITALS: BP 90/51
[2022-06-20] MEDS: CALCITONIN,SALMON,SYNTHETIC 3.7 ML SPRAY.PUMP NS SCH (16:43)
[2022-06-20 20:00] VITALS: BP 105/44
[2022-06-21] VITALS (9 sets, daily range): BP systolic 99–129; BP diastolic 43–55
[2022-06-21] MEDS: MINERAL OIL/PETROLAT OPHT OINT 3.5 GM TUBE LEFTEYE SCH ×3 (01:40→22:57)
[2022-06-21] MEDS: MEROPENEM 1 G in IV NORMAL SALINE 100 ML IV SCH ×4 (01:40→22:57)
[2022-06-21] MEDS: IV NS 1000 ML 1,000 ML IV PRN (04:43)
[2022-06-21 05:02] LABS: HEMATOCRIT 23.6 % (36.7-47.1); MEAN CORPUSCULAR HEMOGLOBIN 27.1 uug (23.8-33.4); MEAN CORPUSCULAR VOLUME 89.5 fL (73.0-96.2); PLATELET COUNT (AUTO) 227 K/uL (152-348)
[2022-06-21 05:18] LABS: MAGNESIUM 2.3 mg/dL (1.8-2.4); PHOSPHOROUS 3.6 mg/dL (2.5-4.9); POTASSIUM 4.6 mmol/L (3.5-5.1)
--- NOTE | 2022-06-21 07:05 | NUR ---
Received pt. on ventilator Portex 6 A/C 14, Tv 450, FIO2 30%. ON cardiac/vascular sonographer Sinus tachycardia rate in the 115-120's. Low grade fever 99.9. PEG with no residuals. Neuro-villalta pt. opening eyes, spontaneously, does not follow commands. IV line patent. Will continue with care plan.
[2022-06-21] MEDS ORDERED: VANCOMYCIN IV 750 MG in IV DEXTROSE 5% 250 ML IV ONE (08:00)
[2022-06-21] MEDS: ASCORBIC ACID 500 MG TABLET PO SCH (08:13)
[2022-06-21] MEDS: PANTOPRAZOLE ORAL SUSPENSION 40 MG SUSPDR.PKT GT SCH (08:13)
[2022-06-21] MEDS: ACIDOPHILUS/BULGARICUS CHEW TAB GT SCH ×2 (08:13→20:54)
[2022-06-21] MEDS: POLYVINYL ALCOHOL OPHT DROPS 15 ML BOTTLE EACHEYE SCH ×3 (08:14→18:41)
[2022-06-21] MEDS: CALCITONIN,SALMON,SYNTHETIC 3.7 ML SPRAY.PUMP NS SCH (08:17)
[2022-06-21] MEDS: THERAHONEY GEL 1.5 OZ TUBE TOP SCH (08:18)
[2022-06-21] MEDS: ALLOPURINOL 100 MG TABLET GT SCH (08:19)
[2022-06-21] MEDS: FUROSEMIDE 40 MG/4 ML VIAL IVP SCH (08:19)
[2022-06-21] MEDS: HEPARIN SODIUM,PORCINE 5,000 UNITS/ML VIAL SQ SCH (08:19)
[2022-06-21] MEDS: JEVITY 1.2 1000 ML LIQUID GT PRN (10:42)
--- NOTE | 2022-06-21 12:00 | NUR ---
Attending Dr. Frost in the unit and at this time He updated family at bedside.
[2022-06-21] MEDS ORDERED: IV 1/2NS 1000 ML 1,000 ML IV ONE (13:15)
[2022-06-21] MEDS: ACETAMINOPHEN 325 MG TABLET GT PRN (22:57)
[2022-06-22] VITALS (12 sets, daily range): BP systolic 90–128; BP diastolic 45–55
--- NOTE | 2022-06-22 04:09 | NUR ---
GOT ORDERS FROM DR PLASCENCIA FOR AMINOPHYLINE GTT FOR AFIB, WITHOUT THE BOLUS
[2022-06-22] MEDS ORDERED: AMIODARONE HCL 150 MG/3 ML VIAL IV ONE (04:16)
[2022-06-22] MEDS: AMIODARONE HCL IV 450 MG in IV DEXTROSE 5% 250 ML IV PRN ×3 (04:30→23:13)
[2022-06-22] MEDS: JEVITY 1.2 1000 ML LIQUID GT PRN (04:45)
[2022-06-22 05:16] LABS: HEMATOCRIT 23.3 % (36.7-47.1); MEAN CORPUSCULAR HEMOGLOBIN 27.3 uug (23.8-33.4); MEAN CORPUSCULAR VOLUME 89.4 fL (73.0-96.2); PLATELET COUNT (AUTO) 206 K/uL (152-348)
[2022-06-22] MEDS: MEROPENEM 1 G in IV NORMAL SALINE 100 ML IV SCH ×3 (05:20→21:02)
[2022-06-22 05:35] LABS: CREATININE 1.1 mg/dL (0.6-1.3); PHOSPHOROUS 3.7 mg/dL (2.5-4.9); POTASSIUM 4.1 mmol/L (3.5-5.1)
--- NOTE | 2022-06-22 07:10 | NUR ---
Received pt. on ventilator Portex 6 A/C 14, Tv 450, FIO2 30%. ON nurse monitoring Sinus tachycardia rate in the 115-120's. Low grade fever 99.9. PEG with no residuals. Neuro-villalta pt. opening eyes, spontaneously, does not follow commands. IV line patent. Will continue with care plan. Will continue with care plan.
--- NOTE | 2022-06-22 07:30 | NUR ---
REPORT GIVEN TO MERCEDES KILLIAN
[2022-06-22] MEDS: ACIDOPHILUS/BULGARICUS CHEW TAB GT SCH ×2 (08:33→20:50)
[2022-06-22] MEDS: FUROSEMIDE 40 MG/4 ML VIAL IVP SCH (08:33)
[2022-06-22] MEDS: ALLOPURINOL 100 MG TABLET GT SCH (08:33)
[2022-06-22] MEDS: ASCORBIC ACID 500 MG TABLET PO SCH (08:34)
[2022-06-22] MEDS: CALCITONIN,SALMON,SYNTHETIC 3.7 ML SPRAY.PUMP NS SCH (08:35)
[2022-06-22] MEDS: THERAHONEY GEL 1.5 OZ TUBE TOP SCH (08:36)
[2022-06-22] MEDS: MINERAL OIL/PETROLAT OPHT OINT 3.5 GM TUBE LEFTEYE SCH ×2 (08:37→20:51)
[2022-06-22] MEDS: POLYVINYL ALCOHOL OPHT DROPS 15 ML BOTTLE EACHEYE SCH ×3 (08:38→16:48)
[2022-06-22] MEDS: PANTOPRAZOLE ORAL SUSPENSION 40 MG SUSPDR.PKT GT SCH (08:40)
--- NOTE | 2022-06-22 09:00 | NUR ---
Pulmonary services, Dr. Baldwin in to see pt. report given. Orders to continue with current care plan received.
[2022-06-22 09:36] LABS: ABG BASE EXCESS 0.1 mmol/L; ABG HCO3 23.7 mmol/L; ABG PCO2 34.2 mmHg (35.0-45.0); ABG PH 7.458 (7.350-7.450); ABG PO2 87.8 mmHg (75.0-100.0); ABG SITE LEFT BRACHIAL; COHb 0.3 % (0.5-1.5); MetHb 0.2 % (0.0-1.5); O2Hb 96.5 % (94.0-97.0); VT, ABG 450 mL
[2022-06-22] MEDS: VANCOMYCIN IV 750 MG in IV DEXTROSE 5% 250 ML IV SCH (12:06)
--- NOTE | 2022-06-22 13:00 | NUR ---
N.P. from attending in the unit to follow up on pt.
[2022-06-23] VITALS (7 sets, daily range): BP systolic 90–119; BP diastolic 44–61
[2022-06-23] MEDS: ACETAMINOPHEN 325 MG TABLET GT PRN (00:57)
[2022-06-23 04:59] LABS: HEMATOCRIT 21.4 % (36.7-47.1); MEAN CORPUSCULAR HEMOGLOBIN 27.7 uug (23.8-33.4); MEAN CORPUSCULAR VOLUME 88.6 fL (73.0-96.2); PLATELET COUNT (AUTO) 196 K/uL (152-348)
[2022-06-23] MEDS: MEROPENEM 1 G in IV NORMAL SALINE 100 ML IV SCH ×3 (05:02→21:07)
[2022-06-23 05:06] LABS: PHOSPHOROUS 4.2 mg/dL (2.5-4.9); POTASSIUM 3.8 mmol/L (3.5-5.1)
--- NOTE | 2022-06-23 06:26 | NUR ---
Left pt. on ventilator Portex 6 A/C 14, Tv 450, FIO2 30%. ON cardiopulmonary supervisor Sinus tachycardia rate in the 115-120's. one episode of low-grade tempt fo witch patient was treated. PEG with no residuals. Neuro-villalta pt. opening eyes, spontaneously, does not follow commands. IV line patent. Will continue with care plan. Will endorse for continuity of care.
[2022-06-23] MEDS: ACIDOPHILUS/BULGARICUS CHEW TAB GT SCH ×2 (09:38→20:38)
[2022-06-23] MEDS: POLYVINYL ALCOHOL OPHT DROPS 15 ML BOTTLE EACHEYE SCH ×3 (09:38→17:54)
[2022-06-23] MEDS: PANTOPRAZOLE ORAL SUSPENSION 40 MG SUSPDR.PKT GT SCH (09:39)
[2022-06-23] MEDS: ASCORBIC ACID 500 MG TABLET PO SCH (09:41)
[2022-06-23] MEDS: FUROSEMIDE 40 MG/4 ML VIAL IVP SCH (09:41)
[2022-06-23] MEDS: THERAHONEY GEL 1.5 OZ TUBE TOP SCH (09:41)
[2022-06-23] MEDS: MINERAL OIL/PETROLAT OPHT OINT 3.5 GM TUBE LEFTEYE SCH ×2 (09:41→20:39)
[2022-06-23] MEDS: CALCITONIN,SALMON,SYNTHETIC 3.7 ML SPRAY.PUMP NS SCH (09:44)
[2022-06-23] MEDS: ALLOPURINOL 100 MG TABLET GT SCH (09:45)
[2022-06-23] MEDS: VANCOMYCIN IV 750 MG in IV DEXTROSE 5% 250 ML IV SCH (13:12)
[2022-06-23] MEDS ORDERED: ACETAMINOPHEN 325 MG TABLET PO ONE (17:00)
[2022-06-23] MEDS: SODIUM HYPOCHLORITE 0.125% (QUARTER STRENGTH) 473 ML BOTTLE TP SCH (23:00)
[2022-06-24] VITALS (7 sets, daily range): BP systolic 114–125; BP diastolic 47–60
[2022-06-24 04:57] LABS: MEAN CORPUSCULAR HEMOGLOBIN 27.3 uug (23.8-33.4); MEAN CORPUSCULAR VOLUME 87.8 fL (73.0-96.2); PLATELET COUNT (AUTO) 204 K/uL (152-348)
[2022-06-24 05:22] LABS: CREATININE 1.1 mg/dL (0.6-1.3); MAGNESIUM 1.9 mg/dL (1.8-2.4); PHOSPHOROUS 3.3 mg/dL (2.5-4.9); POTASSIUM 3.6 mmol/L (3.5-5.1)
[2022-06-24 05:41] LABS: *BILIRUBIN,URIN NEGATIVE (NEGATIVE); *CLARITY,URINE CLEAR (CLEAR); *COLOR,URINE YELLOW (YELLOW); *KETONES,URINE NEGATIVE (NEGATIVE); *UROBILINOGEN,URINE 0.2 E.U./dl (NORMAL); LEUKOCYTE ESTERASE ,URINE NEGATIVE (NEGATIVE); NITRITE, URINE NEGATIVE (NEGATIVE); UGLUCOSE NEGATIVE (NEGATIVE)
[2022-06-24] MEDS: MEROPENEM 1 G in IV NORMAL SALINE 100 ML IV SCH ×3 (05:44→21:04)
[2022-06-24 05:45] LABS: *BLOOD, URINE TRACE (NEGATIVE)
[2022-06-24 05:50] LABS: WBC,URINE 0-3 /HPF (0-3)
--- NOTE | 2022-06-24 06:33 | NUR ---
Received patient lying in bed with eyes closed. Pt had a relatively uneventful shift. Pt is responsive to verbal and tactile stimuli. He is able to track and squeeze my hands. Pt is CELI status. No signs of distress noted. Pt's vent settings were AC14, TV450, Peep 5, FIO2 -30%. Pt report will be endorsed to incoming shift.
[2022-06-24] MEDS: SODIUM HYPOCHLORITE 0.125% (QUARTER STRENGTH) 473 ML BOTTLE TP SCH (09:31)
[2022-06-24] MEDS: CALCITONIN,SALMON,SYNTHETIC 3.7 ML SPRAY.PUMP NS SCH (09:32)
[2022-06-24] MEDS: FUROSEMIDE 40 MG/4 ML VIAL IVP SCH (09:32)
[2022-06-24] MEDS: ACIDOPHILUS/BULGARICUS CHEW TAB GT SCH ×2 (09:33→21:03)
[2022-06-24] MEDS: ALLOPURINOL 100 MG TABLET GT SCH (09:33)
[2022-06-24] MEDS: ASCORBIC ACID 500 MG TABLET PO SCH (09:33)
[2022-06-24] MEDS: PANTOPRAZOLE ORAL SUSPENSION 40 MG SUSPDR.PKT GT SCH (09:33)
[2022-06-24] MEDS: THERAHONEY GEL 1.5 OZ TUBE TOP SCH (09:33)
[2022-06-24] MEDS: POLYVINYL ALCOHOL OPHT DROPS 15 ML BOTTLE EACHEYE SCH ×3 (09:35→16:54)
[2022-06-24] MEDS: MINERAL OIL/PETROLAT OPHT OINT 3.5 GM TUBE LEFTEYE SCH ×2 (09:35→21:00)
[2022-06-24] MEDS ORDERED: AMIODARONE HCL 200 MG TABLET PO ONE (10:30)
[2022-06-24] MEDS: APIXABAN 2.5 MG TABLET PO SCH ×2 (11:16→21:02)
[2022-06-24] MEDS: VANCOMYCIN IV 750 MG in IV DEXTROSE 5% 250 ML IV SCH (13:00)
[2022-06-24] MEDS: ACETAMINOPHEN 325 MG TABLET GT PRN ×2 (16:53→21:34)
[2022-06-25] VITALS (7 sets, daily range): BP systolic 94–133; BP diastolic 50–81
[2022-06-25] MEDS: ACETAMINOPHEN 325 MG TABLET GT PRN (03:26)
[2022-06-25] MEDS: MEROPENEM 1 G in IV NORMAL SALINE 100 ML IV SCH ×3 (05:08→21:12)
[2022-06-25 05:31] LABS: HEMATOCRIT 24.5 % (36.7-47.1); MEAN CORPUSCULAR HEMOGLOBIN 27.7 uug (23.8-33.4); MEAN CORPUSCULAR VOLUME 87.2 fL (73.0-96.2); PLATELET COUNT (AUTO) 185 K/uL (152-348)
[2022-06-25 05:45] LABS: MAGNESIUM 1.9 mg/dL (1.8-2.4); PHOSPHOROUS 3.1 mg/dL (2.5-4.9); POTASSIUM 3.7 mmol/L (3.5-5.1)
--- NOTE | 2022-06-25 07:00 | NUR ---
f/c leaking,replaced without difficulty
--- NOTE | 2022-06-25 07:07 | NUR ---
REPORT GIVEN TO MERCEDES HOLLY
[2022-06-25] MEDS: PANTOPRAZOLE ORAL SUSPENSION 40 MG SUSPDR.PKT GT SCH (09:45)
[2022-06-25] MEDS: APIXABAN 2.5 MG TABLET PO SCH ×2 (09:46→21:00)
[2022-06-25] MEDS: ASCORBIC ACID 500 MG TABLET PO SCH (09:47)
[2022-06-25] MEDS: ACIDOPHILUS/BULGARICUS CHEW TAB GT SCH ×2 (09:47→20:42)
[2022-06-25] MEDS: ALLOPURINOL 100 MG TABLET GT SCH (09:47)
[2022-06-25] MEDS: AMIODARONE HCL 200 MG TABLET PO SCH (09:47)
[2022-06-25] MEDS: FUROSEMIDE 40 MG/4 ML VIAL IVP SCH (09:47)
[2022-06-25] MEDS: SODIUM HYPOCHLORITE 0.125% (QUARTER STRENGTH) 473 ML BOTTLE TP SCH (09:49)
[2022-06-25] MEDS: POLYVINYL ALCOHOL OPHT DROPS 15 ML BOTTLE EACHEYE SCH ×3 (09:49→16:28)
[2022-06-25] MEDS: THERAHONEY GEL 1.5 OZ TUBE TOP SCH (09:51)
[2022-06-25] MEDS: MINERAL OIL/PETROLAT OPHT OINT 3.5 GM TUBE LEFTEYE SCH ×2 (09:52→21:12)
[2022-06-25] MEDS: CALCITONIN,SALMON,SYNTHETIC 3.7 ML SPRAY.PUMP NS SCH (09:52)
[2022-06-25] MEDS: VANCOMYCIN IV 750 MG in IV DEXTROSE 5% 250 ML IV SCH (12:33)
[2022-06-26] VITALS (13 sets, daily range): BP systolic 98–125; BP diastolic 50–81
--- NOTE | 2022-06-26 04:22 | NUR ---
End of Shift Summary. Pt received in bed with eyes closed. He opens eyes spontaneously but cannot engage in any meaningful interaction. Pt uses his left hands to hold or grab onto the trach but his right hand is flacid with severe weakness. Upon assessment, pt had some red skin discoloration in several areas over the body. There were traces of blood on the G-Tube dressing, at the tip entry point of the flores catheter and his mouth was had dried blood on his lip in his mouth. Oral care done , dressings changed, pt bathed and linen changed. Pt turned and repositioned. Abdominal girth 92 cm at 2200. Abdomen is soft and bowel sounds present. 00:20 - ETL ANALYST Shad Kaba advised of signs of bleeding. Order to hold Eliquis. 0440 Abdominal girth remains the same. Abdomen is soft and bowel sounds are present. No sign of distress. Temp is 99.0. Uneventful night. Report endorsed to day shift RN.
[2022-06-26] MEDS: MEROPENEM 1 G in IV NORMAL SALINE 100 ML IV SCH ×3 (05:15→21:06)
[2022-06-26 06:09] LABS: HEMATOCRIT 26.1 % (36.7-47.1); MEAN CORPUSCULAR VOLUME 88.3 fL (73.0-96.2); PLATELET COUNT (AUTO) 228 K/uL (152-348)
[2022-06-26 06:23] LABS: CREATININE 1.1 mg/dL (0.6-1.3); PHOSPHOROUS 3.3 mg/dL (2.5-4.9); POTASSIUM 4.5 mmol/L (3.5-5.1)
[2022-06-26] MEDS: APIXABAN 2.5 MG TABLET PO SCH ×2 (09:00→20:15)
[2022-06-26] MEDS: POLYVINYL ALCOHOL OPHT DROPS 15 ML BOTTLE EACHEYE SCH ×3 (09:12→17:10)
[2022-06-26] MEDS: SODIUM HYPOCHLORITE 0.125% (QUARTER STRENGTH) 473 ML BOTTLE TP SCH (09:13)
[2022-06-26] MEDS: THERAHONEY GEL 1.5 OZ TUBE TOP SCH (09:13)
[2022-06-26] MEDS: MINERAL OIL/PETROLAT OPHT OINT 3.5 GM TUBE LEFTEYE SCH ×2 (09:13→21:06)
[2022-06-26] MEDS: CALCITONIN,SALMON,SYNTHETIC 3.7 ML SPRAY.PUMP NS SCH (09:16)
[2022-06-26] MEDS: FUROSEMIDE 40 MG/4 ML VIAL IVP SCH (09:20)
[2022-06-26] MEDS: AMIODARONE HCL 200 MG TABLET PO SCH (09:21)
[2022-06-26] MEDS: ASCORBIC ACID 500 MG TABLET PO SCH (09:22)
[2022-06-26] MEDS: ALLOPURINOL 100 MG TABLET GT SCH (09:22)
[2022-06-26] MEDS: ACIDOPHILUS/BULGARICUS CHEW TAB GT SCH ×2 (09:23→21:07)
[2022-06-26] MEDS: PANTOPRAZOLE ORAL SUSPENSION 40 MG SUSPDR.PKT GT SCH (09:25)
[2022-06-26] MEDS: VANCOMYCIN IV 750 MG in IV DEXTROSE 5% 250 ML IV SCH (13:35)
[2022-06-26] MEDS: EPOETIN ALFA-EPBX 10,000 UNIT/ML VIAL SQ SCH (14:45)
--- NOTE | 2022-06-26 19:04 | NUR ---
Pt remains on VENTILATOR AC MODE Fio2 30% left neck dressing done. Pt able to move upper extremities freely. F/C to gravity good urine output.No respiratory distress observed. Oral care done frequently due to bleeding gums.Pt's at bedside report about modification on Code status Family will think about it. Pt kept his eyes closed most of the time Tolerated feeding with no residual. Endorse care to incomming RN
--- NOTE | 2022-06-26 20:15 | NUR ---
Held: Eliquis / oral bleeding.
[2022-06-26] MEDS: IV D5W 1000ML 1,000 ML IV PRN (20:29)
[2022-06-27] VITALS (46 sets, daily range): BP systolic 82–168; BP diastolic 41–84
[2022-06-27] MEDS: MEROPENEM 1 G in IV NORMAL SALINE 100 ML IV SCH ×3 (05:07→21:56)
[2022-06-27 05:29] LABS: HEMATOCRIT 24.7 % (36.7-47.1); MEAN CORPUSCULAR HEMOGLOBIN 27.1 uug (23.8-33.4); MEAN CORPUSCULAR VOLUME 88.6 fL (73.0-96.2); PLATELET COUNT (AUTO) 225 K/uL (152-348)
[2022-06-27 05:52] LABS: CREATININE 1.1 mg/dL (0.6-1.3); PHOSPHOROUS 3.8 mg/dL (2.5-4.9); POTASSIUM 4.8 mmol/L (3.5-5.1)
[2022-06-27] MEDS: APIXABAN 2.5 MG TABLET PO SCH ×2 (09:00→20:43)
[2022-06-27] MEDS: ACIDOPHILUS/BULGARICUS CHEW TAB GT SCH ×2 (09:34→21:56)
[2022-06-27] MEDS: AMIODARONE HCL 200 MG TABLET PO SCH (09:34)
[2022-06-27] MEDS: FUROSEMIDE 40 MG/4 ML VIAL IVP SCH (09:34)
[2022-06-27] MEDS: ALLOPURINOL 100 MG TABLET GT SCH (09:34)
[2022-06-27] MEDS: ASCORBIC ACID 500 MG TABLET PO SCH (09:34)
[2022-06-27] MEDS: SODIUM HYPOCHLORITE 0.125% (QUARTER STRENGTH) 473 ML BOTTLE TP SCH (09:35)
[2022-06-27] MEDS: CALCITONIN,SALMON,SYNTHETIC 3.7 ML SPRAY.PUMP NS SCH (09:36)
[2022-06-27] MEDS: THERAHONEY GEL 1.5 OZ TUBE TOP SCH (09:37)
[2022-06-27] MEDS: POLYVINYL ALCOHOL OPHT DROPS 15 ML BOTTLE EACHEYE SCH ×3 (09:37→16:58)
[2022-06-27] MEDS: MINERAL OIL/PETROLAT OPHT OINT 3.5 GM TUBE LEFTEYE SCH ×2 (09:40→21:00)
[2022-06-27] MEDS: PANTOPRAZOLE ORAL SUSPENSION 40 MG SUSPDR.PKT GT SCH (09:40)
[2022-06-27] MEDS: ACETAMINOPHEN 325 MG TABLET GT PRN ×2 (10:10→22:20)
[2022-06-27] MEDS ORDERED: IV LACTATED RINGERS SOLUTION 1,000 ML BAG IV ONE (14:15)
[2022-06-27] MEDS ORDERED: PAMIDRONATE DISODIUM 90 MG in IV NORMAL SALINE 500 ML IV ONE (15:00)
[2022-06-27] MEDS: VANCOMYCIN IV 750 MG in IV DEXTROSE 5% 250 ML IV SCH (15:05)
[2022-06-27] MEDS: IV D5W 1000ML 1,000 ML IV PRN (21:49)
--- NOTE | 2022-06-27 22:46 | NUR ---
LEFT MESSAGE WITH EXCHANGE ABOUT PT WITH FEVER 100.7 PO
[2022-06-28] VITALS (45 sets, daily range): BP systolic 86–146; BP diastolic 39–77
[2022-06-28] MEDS: NOREPINEPHRINE BITARTRATE 8 MG in IV NORMAL SALINE 242 ML IV PRN (02:19)
[2022-06-28 05:16] LABS: HEMATOCRIT 28.3 % (36.7-47.1); MEAN CORPUSCULAR HEMOGLOBIN 27.6 uug (23.8-33.4); MEAN CORPUSCULAR VOLUME 87.6 fL (73.0-96.2); PLATELET COUNT (AUTO) 297 K/uL (152-348)
[2022-06-28 05:22] LABS: CREATININE 1.1 mg/dL (0.6-1.3); MAGNESIUM 1.9 mg/dL (1.8-2.4); PHOSPHOROUS 4.2 mg/dL (2.5-4.9); POTASSIUM 4.6 mmol/L (3.5-5.1)
[2022-06-28] MEDS: MEROPENEM 1 G in IV NORMAL SALINE 100 ML IV SCH ×3 (05:52→21:15)
--- NOTE | 2022-06-28 07:30 | NUR ---
REPORT GIVEN TO MERCEDES BLANCO
[2022-06-28] MEDS: AMIODARONE HCL 200 MG TABLET PO SCH (09:11)
[2022-06-28] MEDS: PANTOPRAZOLE ORAL SUSPENSION 40 MG SUSPDR.PKT GT SCH (09:11)
[2022-06-28] MEDS: FUROSEMIDE 40 MG/4 ML VIAL IVP SCH (09:11)
[2022-06-28] MEDS: MINERAL OIL/PETROLAT OPHT OINT 3.5 GM TUBE LEFTEYE SCH ×2 (09:12→21:06)
[2022-06-28] MEDS: ACIDOPHILUS/BULGARICUS CHEW TAB GT SCH ×2 (09:12→20:31)
[2022-06-28] MEDS: ASCORBIC ACID 500 MG TABLET PO SCH (09:12)
[2022-06-28] MEDS: ALLOPURINOL 100 MG TABLET GT SCH (09:12)
[2022-06-28] MEDS: CALCITONIN,SALMON,SYNTHETIC 3.7 ML SPRAY.PUMP NS SCH (09:13)
[2022-06-28] MEDS: POLYVINYL ALCOHOL OPHT DROPS 15 ML BOTTLE EACHEYE SCH ×3 (09:14→17:07)
[2022-06-28] MEDS: THERAHONEY GEL 1.5 OZ TUBE TOP SCH (09:16)
[2022-06-28] MEDS: REMEDY ESSENTIAL ZINC PASTE 113 GM TOP PRN (09:16)
[2022-06-28] MEDS: SODIUM HYPOCHLORITE 0.125% (QUARTER STRENGTH) 473 ML BOTTLE TP SCH (09:17)
[2022-06-28] MEDS: APIXABAN 2.5 MG TABLET PO SCH ×2 (14:43→21:00)
[2022-06-28] MEDS: VANCOMYCIN IV 750 MG in IV DEXTROSE 5% 250 ML IV SCH (15:16)
[2022-06-28] MEDS: IV D5W 1000ML 1,000 ML IV PRN (18:59)
--- NOTE | 2022-06-28 20:01 | NUR ---
INFORMED OF PT TEMP, STATES JUST INITIATE COOLING MEASURES, NO NEED FOR CULTURES
[2022-06-28] MEDS: ACETAMINOPHEN 325 MG TABLET GT PRN (20:31)
--- NOTE | 2022-06-28 22:00 | NUR ---
held eliquis due to mouth bldg
[2022-06-29] VITALS (42 sets, daily range): BP systolic 91–144; BP diastolic 45–70
[2022-06-29] MEDS: JEVITY 1.2 1000 ML LIQUID GT PRN (00:37)
[2022-06-29] MEDS: NOREPINEPHRINE BITARTRATE 8 MG in IV NORMAL SALINE 242 ML IV PRN (02:17)
[2022-06-29] MEDS: ACETAMINOPHEN 325 MG TABLET GT PRN (03:50)
[2022-06-29 05:07] LABS: HEMATOCRIT 22.7 % (36.7-47.1); MEAN CORPUSCULAR HEMOGLOBIN 27.4 uug (23.8-33.4); MEAN CORPUSCULAR VOLUME 86.4 fL (73.0-96.2); PLATELET COUNT (AUTO) 199 K/uL (152-348)
[2022-06-29] MEDS: MEROPENEM 1 G in IV NORMAL SALINE 100 ML IV SCH ×3 (05:09→21:11)
[2022-06-29 05:20] LABS: CREATININE 0.8 mg/dL (0.6-1.3); MAGNESIUM 1.9 mg/dL (1.8-2.4); PHOSPHOROUS 3.8 mg/dL (2.5-4.9); POTASSIUM 4.7 mmol/L (3.5-5.1)
--- NOTE | 2022-06-29 07:15 | NUR ---
REPORT GIVEN TO MERCEDES KILLIAN
--- NOTE | 2022-06-29 07:15 | NUR ---
Received pt. on ventilator A/C 14, Tv= 450 30% FIO2 and Peep +5, saturtion of 95-98%. On pvc monitor sinus rhythm SBP maintain with levophed. G-T with feeding running, at goal with zero residuals. Whaley to gravity, IV line patent. Skin with sacrum decubitus, BUE with swelling and weeping. Will continue to monitor.
[2022-06-29] MEDS: POLYVINYL ALCOHOL OPHT DROPS 15 ML BOTTLE EACHEYE SCH ×3 (08:17→16:11)
[2022-06-29] MEDS: ASCORBIC ACID 500 MG TABLET PO SCH (08:29)
[2022-06-29] MEDS: ALLOPURINOL 100 MG TABLET GT SCH (08:29)
[2022-06-29] MEDS: ACIDOPHILUS/BULGARICUS CHEW TAB GT SCH ×2 (08:29→20:51)
[2022-06-29] MEDS: AMIODARONE HCL 200 MG TABLET PO SCH (08:29)
[2022-06-29] MEDS: FUROSEMIDE 40 MG/4 ML VIAL IVP SCH (08:33)
[2022-06-29] MEDS: PANTOPRAZOLE ORAL SUSPENSION 40 MG SUSPDR.PKT GT SCH (08:34)
[2022-06-29] MEDS: MINERAL OIL/PETROLAT OPHT OINT 3.5 GM TUBE LEFTEYE SCH ×2 (08:36→20:50)
[2022-06-29] MEDS: THERAHONEY GEL 1.5 OZ TUBE TOP SCH (08:37)
[2022-06-29] MEDS: SODIUM HYPOCHLORITE 0.125% (QUARTER STRENGTH) 473 ML BOTTLE TP SCH (08:40)
[2022-06-29] MEDS: CALCITONIN,SALMON,SYNTHETIC 3.7 ML SPRAY.PUMP NS SCH (08:47)
[2022-06-29] MEDS: APIXABAN 2.5 MG TABLET PO SCH (09:00)
--- NOTE | 2022-06-29 09:00 | NUR ---
Late entry orders to hold eliquis dose received.
--- NOTE | 2022-06-29 10:40 | NUR ---
Pulmonary services Dr. Baldwin in the unit to follow up. on pt. report given, and orders to continue with care plan received.
--- NOTE | 2022-06-29 12:25 | NUR ---
Attending Dr. Fausto Callahan in the unit to see and examine pt. family at bedside and updated by physician,.
[2022-06-29] MEDS: MIDODRINE HCL 5 MG TABLET PO SCH ×2 (13:15→21:11)
[2022-06-29] MEDS: VANCOMYCIN IV 750 MG in IV DEXTROSE 5% 250 ML IV SCH (14:42)
[2022-06-29] MEDS: IV D5W 1000ML 1,000 ML IV PRN (14:51)
--- NOTE | 2022-06-29 17:05 | NUR ---
Pt remains trach to vent on cmv, no vent changes made today. Spo2 wnl, respirations in the low 30's throughout shift. Trach/oral sxn prn. Oral care provided. Will continue to monitor and follow current respiratory orders.
[2022-06-30] VITALS (30 sets, daily range): BP systolic 83–125; BP diastolic 45–63
[2022-06-30] MEDS: NOREPINEPHRINE BITARTRATE 8 MG in IV NORMAL SALINE 242 ML IV PRN (00:29)
[2022-06-30] MEDS: ACETAMINOPHEN 325 MG TABLET GT PRN (00:54)
[2022-06-30 04:56] LABS: HEMATOCRIT 23.9 % (36.7-47.1); MEAN CORPUSCULAR HEMOGLOBIN 27.7 uug (23.8-33.4); PLATELET COUNT (AUTO) 226 K/uL (152-348)
[2022-06-30 05:14] LABS: BILIRUBIN,TOTAL 0.4 mg/dL (0.2-1.0); MAGNESIUM 1.8 mg/dL (1.8-2.4); POTASSIUM 4.7 mmol/L (3.5-5.1); TOTAL PROTEIN, SERUM 5.6 g/dL (6.4-8.2)
--- NOTE | 2022-06-30 05:36 | NUR ---
Albumin 1.3
[2022-06-30] MEDS: MEROPENEM 1 G in IV NORMAL SALINE 100 ML IV SCH ×3 (06:47→21:07)
[2022-06-30] MEDS: MIDODRINE HCL 5 MG TABLET PO SCH ×3 (06:48→21:17)
--- NOTE | 2022-06-30 07:07 | NUR ---
Left pt. resting comfortable. Remains on ventilator with no change in settings saturation of 95-98%. No tachypnea. On sinus rhythm.IV line patent. PEG patent tolerating feeding. Will endorse for continuity of care.
[2022-06-30 07:35] LABS: ABG BASE EXCESS -1.2 mmol/L; ABG HCO3 22.7 mmol/L; ABG PCO2 34.3 mmHg (35.0-45.0); ABG PH 7.439 (7.350-7.450); ABG PO2 90.3 mmHg (75.0-100.0); ABG SITE LEFT BRACHIAL; ABG TOTAL HEMOGLOBIN 8.3 G/dL (13.5-18.0); COHb 0.6 % (0.5-1.5); MetHb 0.3 % (0.0-1.5); O2Hb 96.1 % (94.0-97.0); VENT MODE VENT - A/C; VT, ABG 450 mL
[2022-06-30] MEDS: CALCITONIN,SALMON,SYNTHETIC 3.7 ML SPRAY.PUMP NS SCH (09:35)
[2022-06-30] MEDS: SODIUM HYPOCHLORITE 0.125% (QUARTER STRENGTH) 473 ML BOTTLE TP SCH (09:36)
[2022-06-30] MEDS: MINERAL OIL/PETROLAT OPHT OINT 3.5 GM TUBE LEFTEYE SCH ×2 (09:36→21:00)
[2022-06-30] MEDS: POLYVINYL ALCOHOL OPHT DROPS 15 ML BOTTLE EACHEYE SCH ×3 (09:36→16:15)
[2022-06-30] MEDS: PANTOPRAZOLE ORAL SUSPENSION 40 MG SUSPDR.PKT GT SCH (09:36)
[2022-06-30] MEDS: ACIDOPHILUS/BULGARICUS CHEW TAB GT SCH ×2 (09:36→21:18)
[2022-06-30] MEDS: FUROSEMIDE 40 MG/4 ML VIAL IVP SCH (09:36)
[2022-06-30] MEDS: THERAHONEY GEL 1.5 OZ TUBE TOP SCH (09:37)
[2022-06-30] MEDS: AMIODARONE HCL 200 MG TABLET PO SCH (09:37)
[2022-06-30] MEDS: ALLOPURINOL 100 MG TABLET GT SCH (09:37)
[2022-06-30] MEDS: ASCORBIC ACID 500 MG TABLET PO SCH (09:37)
--- NOTE | 2022-06-30 11:52 | NUR ---
Pt.was transferred to the room 1B located in the ED dept. for hemodyalysis at 11:52am. Pt.monitored in ED dept. while full tranfer of unit completed. Monitored via engine monitor in ED. VS have been witin normal limits during transfer and wait for endorsement. Endorsed to Lily LONG injury free. VSS.
[2022-06-30] MEDS ORDERED: MIDODRINE HCL 5 MG TABLET ONE (14:28)
--- NOTE | 2022-06-30 15:58 | NUR ---
SW consult requested for end-of-life decision-making. SW spoke to patient's , Roseann Raymundo ([phone]) at patient's bedside and she states she is not ready to make a decision about code status. SW provided emotional support and validation and will continue to follow up.
[2022-06-30] MEDS ORDERED: VANCOMYCIN IV 750 MG in IV DEXTROSE 5% 250 ML IV SCH (22:00)
[2022-07-01] VITALS (21 sets, daily range): BP systolic 92–142; BP diastolic 41–92
[2022-07-01] MEDS: JEVITY 1.2 1000 ML LIQUID GT PRN (01:24)
[2022-07-01] MEDS: IV D5W 1000ML 1,000 ML IV PRN ×2 (01:30→23:36)
[2022-07-01] MEDS: MEROPENEM 1 G in IV NORMAL SALINE 100 ML IV SCH ×3 (04:49→22:00)
[2022-07-01 04:59] LABS: HEMATOCRIT 23.5 % (36.7-47.1); MEAN CORPUSCULAR HEMOGLOBIN 27.7 uug (23.8-33.4); MEAN CORPUSCULAR VOLUME 86.9 fL (73.0-96.2); PLATELET COUNT (AUTO) 241 K/uL (152-348)
[2022-07-01 05:10] LABS: CREATININE 0.9 mg/dL (0.6-1.3); MAGNESIUM 1.8 mg/dL (1.8-2.4); POTASSIUM 4.3 mmol/L (3.5-5.1)
[2022-07-01] MEDS: MIDODRINE HCL 5 MG TABLET PO SCH ×3 (05:28→22:00)
[2022-07-01] MEDS: ASCORBIC ACID 500 MG TABLET PO SCH (09:17)
[2022-07-01] MEDS: ALLOPURINOL 100 MG TABLET GT SCH (09:17)
[2022-07-01] MEDS: PANTOPRAZOLE ORAL SUSPENSION 40 MG SUSPDR.PKT GT SCH (09:17)
[2022-07-01] MEDS: AMIODARONE HCL 200 MG TABLET PO SCH (09:17)
[2022-07-01] MEDS: SODIUM HYPOCHLORITE 0.125% (QUARTER STRENGTH) 473 ML BOTTLE TP SCH (09:18)
[2022-07-01] MEDS: THERAHONEY GEL 1.5 OZ TUBE TOP SCH (09:18)
[2022-07-01] MEDS: ACIDOPHILUS/BULGARICUS CHEW TAB GT SCH ×2 (09:18→20:42)
[2022-07-01] MEDS: CALCITONIN,SALMON,SYNTHETIC 3.7 ML SPRAY.PUMP NS SCH (09:18)
[2022-07-01] MEDS: MINERAL OIL/PETROLAT OPHT OINT 3.5 GM TUBE LEFTEYE SCH ×2 (09:18→20:42)
[2022-07-01] MEDS: POLYVINYL ALCOHOL OPHT DROPS 15 ML BOTTLE EACHEYE SCH ×3 (09:19→16:07)
--- NOTE | 2022-07-01 17:48 | NUR ---
C diff specimen and form sent to lab.
[2022-07-01] MEDS: ACETAMINOPHEN 325 MG TABLET GT PRN (20:45)
[2022-07-02] VITALS (23 sets, daily range): BP systolic 89–123; BP diastolic 45–73
[2022-07-02] MEDS: JEVITY 1.2 1000 ML LIQUID GT PRN (02:12)
[2022-07-02 05:06] LABS: HEMATOCRIT 22.3 % (36.7-47.1); MEAN CORPUSCULAR VOLUME 86.9 fL (73.0-96.2); PLATELET COUNT (AUTO) 220 K/uL (152-348)
[2022-07-02] MEDS: MIDODRINE HCL 5 MG TABLET PO SCH ×3 (05:38→21:50)
[2022-07-02] MEDS: MEROPENEM 1 G in IV NORMAL SALINE 100 ML IV SCH ×3 (05:38→22:27)
[2022-07-02 05:57] LABS: CREATININE 0.9 mg/dL (0.6-1.3); PHOSPHOROUS 4.7 mg/dL (2.5-4.9)
[2022-07-02] MEDS ORDERED: LIDOCAINE 1%-EPI 1:100,000 20 ML VIAL IJ ONE (06:00)
[2022-07-02] MEDS ORDERED: LIDOCAINE 1%-EPI 1:100,000 20 ML VIAL IJ PRN (06:00)
[2022-07-02] MEDS ORDERED: SILVER NITRATE APPLICATOR STICK EACH TP PRN (06:00)
[2022-07-02] MEDS ORDERED: SILVER NITRATE APPLICATOR STICK EACH TP ONE (06:00)
--- NOTE | 2022-07-02 07:18 | NUR ---
report given to saud solano
--- NOTE | 2022-07-02 07:45 | NUR ---
WOUND CARE FOLLOW UP: PT SEEN FOR RE-EVALUATION OF SACRAL DEEP TISSUE INJURY IN EVOLUTION. WOUND BED CHANGES NOTED TO INCLUDE SOME NECROTIC TISSUE IN CENTRAL PORTION OF WOUND. RECOMMEND SURGICAL FOLLOW UP. DISCUSSED WOUND TREATMENT PLAN WITH NURSING STAFF AND SURGICAL TEAM CURRENTLY ON CASE. 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 DUE TO MULTIPLE CO-MORBIDITIES, FURTHER SKIN BREAKDOWN MAY BE UNAVOIDABLE. ALL SKIN PROTECTION MEASURES ARE CURRENTLY IN PLACE. [facility] IN AGREEMENT WITH PLAN OF CARE. Addendum: 07/02/22 at 0752 by ANITA CIFUENTES RN Amended: Links added.
[2022-07-02 07:53] LABS: ABG BASE EXCESS -1.3 mmol/L; ABG PCO2 36.6 mmHg (35.0-45.0); ABG PH 7.417 (7.350-7.450); ABG PO2 97.8 mmHg (75.0-100.0); ABG SITE LEFT BRACHIAL; ABG TOTAL HEMOGLOBIN 7.9 G/dL (13.5-18.0); COHb 0.4 % (0.5-1.5); MetHb 0.5 % (0.0-1.5); O2Hb 96.4 % (94.0-97.0); VENT MODE VENT - A/C; VT, ABG 450 mL
[2022-07-02] MEDS: CALCITONIN,SALMON,SYNTHETIC 3.7 ML SPRAY.PUMP NS SCH (09:00)
[2022-07-02] MEDS: ASCORBIC ACID 500 MG TABLET PO SCH (09:00)
[2022-07-02] MEDS: PANTOPRAZOLE ORAL SUSPENSION 40 MG SUSPDR.PKT GT SCH (09:00)
[2022-07-02] MEDS: SODIUM HYPOCHLORITE 0.125% (QUARTER STRENGTH) 473 ML BOTTLE TP SCH (09:00)
[2022-07-02] MEDS: THERAHONEY GEL 1.5 OZ TUBE TOP SCH (09:00)
[2022-07-02] MEDS: ALLOPURINOL 100 MG TABLET GT SCH (09:00)
[2022-07-02] MEDS: MINERAL OIL/PETROLAT OPHT OINT 3.5 GM TUBE LEFTEYE SCH ×2 (09:00→21:00)
[2022-07-02] MEDS: AMIODARONE HCL 200 MG TABLET PO SCH (09:00)
[2022-07-02] MEDS: ACIDOPHILUS/BULGARICUS CHEW TAB GT SCH ×2 (09:00→20:31)
[2022-07-02] MEDS: POLYVINYL ALCOHOL OPHT DROPS 15 ML BOTTLE EACHEYE SCH ×3 (09:00→16:12)
--- NOTE | 2022-07-02 10:01 | NUR ---
Wound care nurse JOSUE Black on phone with speaker phone. Explaining the process and need for consent before the serial debridement. Lidocaine used for numbing injection and the debridement standard is weekly and daily dressing changes. RN witnessed telephone discussion of the Procedure, along with pros, cons, standards and outcomes. Charge nurse Saravanan present witnessed PA's discussion. will come in and sign consent for serial debridement of sacrum.
--- NOTE | 2022-07-02 14:45 | NUR ---
PA called and will plan procedure of debridement for tomorrow family updated.
[2022-07-02] MEDS: ACETAMINOPHEN 325 MG TABLET GT PRN (21:45)
[2022-07-02] MEDS: IV D5W 1000ML 1,000 ML IV PRN (21:48)
[2022-07-03] VITALS (23 sets, daily range): BP systolic 95–133; BP diastolic 48–67
[2022-07-03] MEDS: JEVITY 1.2 1000 ML LIQUID GT PRN (00:21)
[2022-07-03] MEDS: MEROPENEM 1 G in IV NORMAL SALINE 100 ML IV SCH ×3 (05:16→21:12)
[2022-07-03] MEDS: MIDODRINE HCL 5 MG TABLET PO SCH ×3 (05:16→21:11)
[2022-07-03 05:24] LABS: HEMATOCRIT 22.9 % (36.7-47.1); MEAN CORPUSCULAR VOLUME 87.8 fL (73.0-96.2); PLATELET COUNT (AUTO) 249 K/uL (152-348)
[2022-07-03 05:29] LABS: BILIRUBIN,TOTAL 0.3 mg/dL (0.2-1.0); PHOSPHOROUS 4.8 mg/dL (2.5-4.9); POTASSIUM 4.9 mmol/L (3.5-5.1); TOTAL PROTEIN, SERUM 5.5 g/dL (6.4-8.2)
--- NOTE | 2022-07-03 07:15 | NUR ---
REPORT GIVEN TO MERCEDES WU
[2022-07-03] MEDS: ACIDOPHILUS/BULGARICUS CHEW TAB GT SCH ×2 (08:55→21:11)
[2022-07-03] MEDS: AMIODARONE HCL 200 MG TABLET PO SCH (08:55)
[2022-07-03] MEDS: ASCORBIC ACID 500 MG TABLET PO SCH (08:56)
[2022-07-03] MEDS: ALLOPURINOL 100 MG TABLET GT SCH (08:56)
[2022-07-03] MEDS: PANTOPRAZOLE ORAL SUSPENSION 40 MG SUSPDR.PKT GT SCH (08:56)
[2022-07-03] MEDS: POLYVINYL ALCOHOL OPHT DROPS 15 ML BOTTLE EACHEYE SCH ×3 (09:00→16:29)
[2022-07-03] MEDS: SODIUM HYPOCHLORITE 0.125% (QUARTER STRENGTH) 473 ML BOTTLE TP SCH (09:01)
[2022-07-03] MEDS: CALCITONIN,SALMON,SYNTHETIC 3.7 ML SPRAY.PUMP NS SCH (09:01)
[2022-07-03] MEDS: THERAHONEY GEL 1.5 OZ TUBE TOP SCH (09:50)
[2022-07-03] MEDS: MINERAL OIL/PETROLAT OPHT OINT 3.5 GM TUBE LEFTEYE SCH ×2 (09:50→21:11)
[2022-07-03] MEDS: EPOETIN ALFA-EPBX 10,000 UNIT/ML VIAL SQ SCH (13:45)
[2022-07-04] VITALS (22 sets, daily range): BP systolic 96–137; BP diastolic 43–69
[2022-07-04 05:25] LABS: CREATININE 0.9 mg/dL (0.6-1.3); HEMATOCRIT 23.3 % (36.7-47.1); MEAN CORPUSCULAR HEMOGLOBIN 27.9 uug (23.8-33.4); MEAN CORPUSCULAR VOLUME 87.4 fL (73.0-96.2); PLATELET COUNT (AUTO) 261 K/uL (152-348); POTASSIUM 5.6 mmol/L (3.5-5.1)
[2022-07-04] MEDS: MEROPENEM 1 G in IV NORMAL SALINE 100 ML IV SCH ×3 (06:23→21:20)
[2022-07-04] MEDS: MIDODRINE HCL 5 MG TABLET PO SCH ×3 (06:23→21:20)
--- NOTE | 2022-07-04 06:37 | NUR ---
End of Shift Summary - 07-03-2022 Pt received in bed with eyes closed. He opens eyes spontaneously but does not engage in any meaningful interaction. Pt uses his left hands to hold or grab onto the trach but severe weakness noted in is right hand. Right hand is flacid. Oral care performed - dried blood and bleeding noted on the oral sponge. Left side of face noted to have huge dressing. It appears swollen. dried blood on his lip in his mouth. Oral care done throughout the shift. Dressings changed, full bed bath with linen change & Pt turned and repositioned. Report endorsed to keli LONG.
[2022-07-04] MEDS: ASCORBIC ACID 500 MG TABLET PO SCH (10:08)
[2022-07-04] MEDS: ACIDOPHILUS/BULGARICUS CHEW TAB GT SCH ×2 (10:08→20:25)
[2022-07-04] MEDS: PANTOPRAZOLE ORAL SUSPENSION 40 MG SUSPDR.PKT GT SCH (10:08)
[2022-07-04] MEDS: ALLOPURINOL 100 MG TABLET GT SCH (10:08)
[2022-07-04] MEDS: AMIODARONE HCL 200 MG TABLET PO SCH (10:09)
[2022-07-04] MEDS: CALCITONIN,SALMON,SYNTHETIC 3.7 ML SPRAY.PUMP NS SCH (10:10)
[2022-07-04] MEDS: SODIUM HYPOCHLORITE 0.125% (QUARTER STRENGTH) 473 ML BOTTLE TP SCH (10:10)
[2022-07-04] MEDS: POLYVINYL ALCOHOL OPHT DROPS 15 ML BOTTLE EACHEYE SCH ×3 (10:11→17:00)
[2022-07-04] MEDS: MINERAL OIL/PETROLAT OPHT OINT 3.5 GM TUBE LEFTEYE SCH ×2 (10:11→20:34)
[2022-07-04] MEDS: THERAHONEY GEL 1.5 OZ TUBE TOP SCH (10:12)
[2022-07-04] MEDS ORDERED: SODIUM POLYSTYRENE SULFONATE 15 G/60 ML LIQUID UDC GT ONE (12:00)
[2022-07-04] MEDS ORDERED: PAMIDRONATE DISODIUM 90 MG in IV NORMAL SALINE 500 ML IV ONE (15:30)
[2022-07-04 18:07] LABS: POTASSIUM 5.5 mmol/L (3.5-5.1)
[2022-07-04] MEDS ORDERED: SODIUM POLYSTYRENE SULFONATE 15 G/60 ML LIQUID UDC PO ONE (19:45)
[2022-07-04] MEDS: ACETAMINOPHEN 325 MG TABLET GT PRN (21:42)
[2022-07-05] VITALS (26 sets, daily range): BP systolic 91–116; BP diastolic 44–73
[2022-07-05 05:20] LABS: HEMATOCRIT 22.1 % (36.7-47.1); MEAN CORPUSCULAR HEMOGLOBIN 27.8 uug (23.8-33.4); MEAN CORPUSCULAR VOLUME 88.7 fL (73.0-96.2); PLATELET COUNT (AUTO) 223 K/uL (152-348)
[2022-07-05 05:31] LABS: POTASSIUM 5.2 mmol/L (3.5-5.1)
[2022-07-05] MEDS: MIDODRINE HCL 5 MG TABLET PO SCH ×3 (05:35→21:27)
[2022-07-05] MEDS: MEROPENEM 1 G in IV NORMAL SALINE 100 ML IV SCH ×3 (05:36→21:14)
--- NOTE | 2022-07-05 07:30 | NUR ---
REPORT GIVEN TO MERCEDES ABAD
[2022-07-05] MEDS: ASCORBIC ACID 500 MG TABLET PO SCH (09:10)
[2022-07-05] MEDS: ACIDOPHILUS/BULGARICUS CHEW TAB GT SCH ×2 (09:10→21:12)
[2022-07-05] MEDS: PANTOPRAZOLE ORAL SUSPENSION 40 MG SUSPDR.PKT GT SCH (09:10)
[2022-07-05] MEDS: ALLOPURINOL 100 MG TABLET GT SCH (09:11)
[2022-07-05] MEDS: SODIUM HYPOCHLORITE 0.125% (QUARTER STRENGTH) 473 ML BOTTLE TP SCH (09:11)
[2022-07-05] MEDS: AMIODARONE HCL 200 MG TABLET PO SCH (09:11)
[2022-07-05] MEDS: THERAHONEY GEL 1.5 OZ TUBE TOP SCH (09:12)
[2022-07-05] MEDS: MINERAL OIL/PETROLAT OPHT OINT 3.5 GM TUBE LEFTEYE SCH ×2 (09:12→21:13)
[2022-07-05] MEDS: CALCITONIN,SALMON,SYNTHETIC 3.7 ML SPRAY.PUMP NS SCH (09:12)
[2022-07-05] MEDS: POLYVINYL ALCOHOL OPHT DROPS 15 ML BOTTLE EACHEYE SCH ×3 (09:15→17:05)
[2022-07-05] MEDS: ACETAMINOPHEN 325 MG TABLET GT PRN (14:07)
--- NOTE | 2022-07-05 19:30 | NUR ---
Received report from outgoing RN patient in bed with eyes open but does not engage, does not obey commands. Blood transfusion PRBC ongoing no adverse reaction noted, dressing to left side of face intact, G-tube feeding up and running HOB elevated, aspiration precaution maintained.
[2022-07-06] VITALS (24 sets, daily range): BP systolic 85–112; BP diastolic 41–59
[2022-07-06 05:08] LABS: HEMATOCRIT 25.1 % (36.7-47.1); MEAN CORPUSCULAR HEMOGLOBIN 27.7 uug (23.8-33.4); MEAN CORPUSCULAR VOLUME 89.8 fL (73.0-96.2); PLATELET COUNT (AUTO) 227 K/uL (152-348)
[2022-07-06 05:15] LABS: CREATININE 1.1 mg/dL (0.6-1.3); POTASSIUM 5.9 mmol/L (3.5-5.1)
[2022-07-06 05:16] LABS: MAGNESIUM 2.3 mg/dL (1.8-2.4); PHOSPHOROUS 5.7 mg/dL (2.5-4.9)
[2022-07-06] MEDS: MEROPENEM 1 G in IV NORMAL SALINE 100 ML IV SCH ×3 (05:27→21:25)
[2022-07-06] MEDS: ACETAMINOPHEN 325 MG TABLET GT PRN ×2 (05:28→21:25)
[2022-07-06] MEDS: MIDODRINE HCL 5 MG TABLET PO SCH ×3 (05:28→21:24)
--- NOTE | 2022-07-06 06:37 | NUR ---
At 0400 o'clock patient had a temperature of 99.4 auxiliary cold compress applied recheck temp at 0500 temp 100.1 tylenol given per order. at 0630 temp 101.3 cold compress applied call out to PCP.
--- NOTE | 2022-07-06 06:46 | NUR ---
Spoke with Deena STALLWORTH about elevated temperature order received for procalcitonin level.
[2022-07-06] MEDS: MORPHINE SULFATE 2 MG/1 ML DISP.SYRIN IV PRN (07:40)
--- NOTE | 2022-07-06 07:54 | NUR ---
received in bed , obtunded, eyes closed not responding to verbal stimuli or pain stimuli. able to move left arm only. no gag reflex, oral care done, patient bleeding from mouth. trach to vent 40%$ fi02 saturatuion is 98% and gtube feeding on. Jevity 1.2 no residual anasarca and lower extremities ankle swollen 2+ Whaley cath intact, dressing on left side of face clean and dry. no drainage clark cath left femoral clean and dry. 0800 morphine given 1 mg due to respiratory rate 35 and heart rate 111 bpm and pain 8/10 pain reassessment to follow.
[2022-07-06] MEDS: AMIODARONE HCL 200 MG TABLET PO SCH (09:00)
[2022-07-06] MEDS: PANTOPRAZOLE ORAL SUSPENSION 40 MG SUSPDR.PKT GT SCH (09:00)
[2022-07-06] MEDS: ALLOPURINOL 100 MG TABLET GT SCH (09:00)
[2022-07-06] MEDS: ACIDOPHILUS/BULGARICUS CHEW TAB GT SCH ×2 (09:00→21:25)
[2022-07-06] MEDS: THERAHONEY GEL 1.5 OZ TUBE TOP SCH (09:01)
[2022-07-06] MEDS: MINERAL OIL/PETROLAT OPHT OINT 3.5 GM TUBE LEFTEYE SCH ×2 (09:01→21:25)
[2022-07-06] MEDS: POLYVINYL ALCOHOL OPHT DROPS 15 ML BOTTLE EACHEYE SCH ×3 (09:01→17:35)
[2022-07-06] MEDS: CALCITONIN,SALMON,SYNTHETIC 3.7 ML SPRAY.PUMP NS SCH (09:02)
[2022-07-06] MEDS: SODIUM HYPOCHLORITE 0.125% (QUARTER STRENGTH) 473 ML BOTTLE TP SCH (09:02)
[2022-07-06] MEDS: ASCORBIC ACID 500 MG TABLET PO SCH (09:03)
[2022-07-06] MEDS ORDERED: FUROSEMIDE 40 MG/4 ML VIAL IV ONE (09:15)
[2022-07-06] MEDS ORDERED: SODIUM POLYSTYRENE SULFONATE 15 G/60 ML LIQUID UDC PO ONE (09:15)
--- NOTE | 2022-07-06 10:05 | NUR ---
Call md Cheek regarding patient potassium and sodium lab result and to let him know the clark cath is not being used . waiting for call back
--- NOTE | 2022-07-06 11:00 | NUR ---
LEFT FEMORAL STEVEN CATHERTER REMOVED BY NO SIGNS OF BLEEDING , NO SIGNS OF DISTRESS INFORMED PATIENT
[2022-07-06 13:19] LABS: CREATININE 1.1 mg/dL (0.6-1.3); POTASSIUM 5.8 mmol/L (3.5-5.1)
--- NOTE | 2022-07-06 16:00 | NUR ---
called wound care nurse regarding debribement of the sacrum left a message , waiting for call back
[2022-07-07] VITALS (24 sets, daily range): BP systolic 91–115; BP diastolic 45–58
[2022-07-07] MEDS: JEVITY 1.2 1000 ML LIQUID GT PRN (00:26)
[2022-07-07] MEDS: ACETAMINOPHEN 325 MG TABLET GT PRN (04:12)
[2022-07-07 04:50] LABS: HEMATOCRIT 25.1 % (36.7-47.1); MEAN CORPUSCULAR HEMOGLOBIN 28.3 uug (23.8-33.4); MEAN CORPUSCULAR VOLUME 90.5 fL (73.0-96.2); PLATELET COUNT (AUTO) 205 K/uL (152-348)
[2022-07-07] MEDS: MIDODRINE HCL 5 MG TABLET PO SCH (05:54)
[2022-07-07] MEDS: MEROPENEM 1 G in IV NORMAL SALINE 100 ML IV SCH ×3 (05:54→21:25)
--- NOTE | 2022-07-07 07:00 | NUR ---
0700 Received in bed , eyes open no gag reflex, able to move left arm only. mouth care done and suction , red secretion minimal from mouth ventilator 40% fio2 saturation is 98%. G-tube feeding Jevity 1.2 @70cc no residual flores catheter output is 70cc/hr 1000 potassium is 6.0 and sodium is 151 MD Khan is aware new order for 250cc flush every 4 hours ordered and new order for lab at 1300 to recheck sodium and potassium . 1300 sodium is now 141 and Potassium is 6.0, 30cc Kayexalate ordered 1400 family is at bed side , patient turned every two hours, left facial dressing changed, informed ID MD Cheek that the site is pussy and discolored, plan to get pictures next wound dressing . patient is on antibiotic. Madular Facial culture sent 07/05/22 pending result. sacral debridement not done because patient is bleeding orally and blood pressure is low. Wound care nurse talked with patient and answered all questions. 1700, sacrum dressing changed, site DTI. 1800 No signs of distress
--- NOTE | 2022-07-07 07:25 | NUR ---
REPORT GIVEN TO MERCEDES ABAD
--- NOTE | 2022-07-07 07:35 | NUR ---
RECEIVED PT ON CURRENT SETTINGS. NO DISTRESS OBSERVED WITH SATURATION OF 88%. EYES CLOSE BUT RESPONSIVE. SUCTIONED FOR VERY MINIMAL AMOUNT OF SECRETIONS. NO NEW ORDER RECEIVED.
[2022-07-07] MEDS: PANTOPRAZOLE ORAL SUSPENSION 40 MG SUSPDR.PKT GT SCH (08:32)
[2022-07-07] MEDS: ACIDOPHILUS/BULGARICUS CHEW TAB GT SCH ×2 (08:33→21:23)
[2022-07-07] MEDS: AMIODARONE HCL 200 MG TABLET PO SCH (08:33)
[2022-07-07] MEDS: ALLOPURINOL 100 MG TABLET GT SCH (08:33)
[2022-07-07] MEDS: MINERAL OIL/PETROLAT OPHT OINT 3.5 GM TUBE LEFTEYE SCH ×2 (08:34→21:00)
[2022-07-07] MEDS: CALCITONIN,SALMON,SYNTHETIC 3.7 ML SPRAY.PUMP NS SCH (08:34)
[2022-07-07] MEDS: POLYVINYL ALCOHOL OPHT DROPS 15 ML BOTTLE EACHEYE SCH ×3 (08:34→16:48)
[2022-07-07] MEDS: THERAHONEY GEL 1.5 OZ TUBE TOP SCH (08:35)
[2022-07-07] MEDS: SODIUM HYPOCHLORITE 0.125% (QUARTER STRENGTH) 473 ML BOTTLE TP SCH (08:36)
[2022-07-07] MEDS: ASCORBIC ACID 500 MG TABLET PO SCH (08:36)
[2022-07-07] MEDS: MORPHINE SULFATE 2 MG/1 ML DISP.SYRIN IV PRN (10:30)
[2022-07-07] MEDS: MIDODRINE HCL 5 MG TABLET GT SCH ×2 (14:27→21:23)
[2022-07-07] MEDS ORDERED: SODIUM POLYSTYRENE SULFONATE 15 G/60 ML LIQUID UDC GT ONE (16:45)
[2022-07-07] MEDS ORDERED: SODIUM POLYSTYRENE SULFONATE 15 G/60 ML LIQUID UDC PO ONE (22:45)
[2022-07-07] MEDS ORDERED: FUROSEMIDE 40 MG/4 ML VIAL IV ONE (22:45)
[2022-07-07] MEDS: IV 1/2NS 1000 ML 1,000 ML IV PRN (23:39)
[2022-07-08] VITALS (23 sets, daily range): BP systolic 99–117; BP diastolic 45–60
[2022-07-08 04:49] LABS: HEMATOCRIT 24.9 % (36.7-47.1); MEAN CORPUSCULAR VOLUME 91.4 fL (73.0-96.2); PLATELET COUNT (AUTO) 201 K/uL (152-348)
[2022-07-08 05:02] LABS: CREATININE 1.1 mg/dL (0.6-1.3); MAGNESIUM 2.2 mg/dL (1.8-2.4); PHOSPHOROUS 5.9 mg/dL (2.5-4.9); POTASSIUM 5.1 mmol/L (3.5-5.1)
[2022-07-08] MEDS: MEROPENEM 1 G in IV NORMAL SALINE 100 ML IV SCH ×3 (05:20→21:54)
[2022-07-08] MEDS: MIDODRINE HCL 5 MG TABLET GT SCH ×3 (05:44→21:55)
[2022-07-08 08:04] LABS: ABG BASE EXCESS 2.4 mmol/L; ABG HCO3 27.8 mmol/L; ABG PCO2 47.3 mmHg (35.0-45.0); ABG PH 7.387 (7.350-7.450); ABG PO2 80.7 mmHg (75.0-100.0); ABG SITE LEFT RADIAL; ABG TOTAL HEMOGLOBIN 8.6 G/dL (13.5-18.0); COHb 0.3 % (0.5-1.5); MetHb 0.2 % (0.0-1.5); O2Hb 94.8 % (94.0-97.0); VENT MODE VENT - A/C; VT, ABG 450 mL
[2022-07-08] MEDS: ACIDOPHILUS/BULGARICUS CHEW TAB GT SCH ×2 (08:13→20:48)
[2022-07-08] MEDS: ALLOPURINOL 100 MG TABLET GT SCH (08:13)
[2022-07-08] MEDS: AMIODARONE HCL 200 MG TABLET PO SCH (08:13)
[2022-07-08] MEDS: PANTOPRAZOLE ORAL SUSPENSION 40 MG SUSPDR.PKT GT SCH (08:13)
[2022-07-08] MEDS: ASCORBIC ACID 500 MG TABLET PO SCH (08:13)
[2022-07-08] MEDS: POLYVINYL ALCOHOL OPHT DROPS 15 ML BOTTLE EACHEYE SCH ×3 (08:15→16:15)
[2022-07-08] MEDS: THERAHONEY GEL 1.5 OZ TUBE TOP SCH (08:15)
[2022-07-08] MEDS: CALCITONIN,SALMON,SYNTHETIC 3.7 ML SPRAY.PUMP NS SCH (08:15)
[2022-07-08] MEDS: MINERAL OIL/PETROLAT OPHT OINT 3.5 GM TUBE LEFTEYE SCH ×2 (08:15→20:49)
[2022-07-08] MEDS: SODIUM HYPOCHLORITE 0.125% (QUARTER STRENGTH) 473 ML BOTTLE TP SCH (08:16)
--- NOTE | 2022-07-08 20:09 | NUR ---
1900 Received from nurse Saravanan RN , patient is able to open eyes but no gag reflex. cannot follow cammand. left face dressing clean and dry. Gtube site clean jevity1.2 going at 70cc/hr no residual at this time. ventilator fi02 is 40% saturation is 100%. mouth cleaning done red secretion from mouth. Moderate secretion. sacral DTI dressing clean Whaley cath intact no drainage, SCD is on.
[2022-07-08] MEDS: IV 1/2NS 1000 ML 1,000 ML IV PRN (22:31)
[2022-07-09] VITALS (24 sets, daily range): BP systolic 97–110; BP diastolic 41–59
[2022-07-09] MEDS: MORPHINE SULFATE 2 MG/1 ML DISP.SYRIN IV PRN (00:10)
[2022-07-09 05:17] LABS: HEMATOCRIT 25.8 % (36.7-47.1); MEAN CORPUSCULAR HEMOGLOBIN 27.5 uug (23.8-33.4); MEAN CORPUSCULAR VOLUME 91.6 fL (73.0-96.2); PLATELET COUNT (AUTO) 187 K/uL (152-348)
[2022-07-09] MEDS: MIDODRINE HCL 5 MG TABLET GT SCH ×3 (05:34→21:05)
[2022-07-09] MEDS: MEROPENEM 1 G in IV NORMAL SALINE 100 ML IV SCH ×2 (05:35→13:24)
[2022-07-09 05:37] LABS: CREATININE 1.1 mg/dL (0.6-1.3); MAGNESIUM 2.1 mg/dL (1.8-2.4); PHOSPHOROUS 6.4 mg/dL (2.5-4.9)
--- NOTE | 2022-07-09 07:00 | NUR ---
no signs of distress , left cheek dressing changed. picture taken. report given to day nurse.
--- NOTE | 2022-07-09 07:19 | NUR ---
Received report from Grayson RN, night warehouse manager nurse. Pt is resting comfortably on Vent and Vital signs are stable HR is 108 and oxygen saturation is 90%
[2022-07-09] MEDS: ACIDOPHILUS/BULGARICUS CHEW TAB GT SCH ×2 (08:16→21:04)
[2022-07-09] MEDS: PANTOPRAZOLE ORAL SUSPENSION 40 MG SUSPDR.PKT GT SCH (08:16)
[2022-07-09] MEDS: ASCORBIC ACID 500 MG TABLET PO SCH (08:16)
[2022-07-09] MEDS: AMIODARONE HCL 200 MG TABLET PO SCH (08:17)
[2022-07-09] MEDS: ALLOPURINOL 100 MG TABLET GT SCH (08:17)
[2022-07-09] MEDS: THERAHONEY GEL 1.5 OZ TUBE TOP SCH (08:21)
[2022-07-09] MEDS: MINERAL OIL/PETROLAT OPHT OINT 3.5 GM TUBE LEFTEYE SCH ×2 (08:21→21:05)
[2022-07-09] MEDS: POLYVINYL ALCOHOL OPHT DROPS 15 ML BOTTLE EACHEYE SCH ×3 (08:21→16:26)
[2022-07-09] MEDS: SODIUM HYPOCHLORITE 0.125% (QUARTER STRENGTH) 473 ML BOTTLE TP SCH (08:22)
[2022-07-09] MEDS: CALCITONIN,SALMON,SYNTHETIC 3.7 ML SPRAY.PUMP NS SCH (08:22)
[2022-07-09] MEDS: CEFEPIME HCL 2 G in IV DEXTROSE 5% 100 ML IV SCH ×2 (16:26→23:49)
--- NOTE | 2022-07-09 20:03 | NUR ---
0700 received in bed , on ventillator fio2 40% saturation is 95% gastric tube, jevity 1.2 @ 70cc /hr no residual at this time flores cath intact urine output is decreasing 30cc/hr left facial dressing clean and dry, sacral DTI dressing is clean mouth care done lightly because patient is bleeding from his mouth. suction patient minimal secretion. Will continue to monitor.
[2022-07-10] VITALS (23 sets, daily range): BP systolic 94–116; BP diastolic 45–64
[2022-07-10] MEDS: IV 1/2NS 1000 ML 1,000 ML IV PRN (02:43)
[2022-07-10] MEDS: MORPHINE SULFATE 2 MG/1 ML DISP.SYRIN IV PRN (04:08)
[2022-07-10 05:38] LABS: HEMATOCRIT 26.4 % (36.7-47.1); MEAN CORPUSCULAR HEMOGLOBIN 27.6 uug (23.8-33.4); MEAN CORPUSCULAR VOLUME 91.7 fL (73.0-96.2); PLATELET COUNT (AUTO) 194 K/uL (152-348)
[2022-07-10] MEDS: MIDODRINE HCL 5 MG TABLET GT SCH ×3 (06:38→21:43)
--- NOTE | 2022-07-10 07:10 | NUR ---
report given to edin LONG,
--- NOTE | 2022-07-10 07:10 | NUR ---
Received pt. on ventilator A/C 14, Tv450 Peep +5 and FIO2 40%, no distress noted. Neuro-villalta pt. opening eyes spontaneously does not track or follows commands moves LUE. PEG jevity at 70cc/hr with no residual. Whaley to gravity. Will continue with care plan.
[2022-07-10] MEDS: CEFEPIME HCL 2 G in IV DEXTROSE 5% 100 ML IV SCH ×3 (08:03→23:33)
[2022-07-10] MEDS: AMIODARONE HCL 200 MG TABLET PO SCH (08:29)
[2022-07-10] MEDS: ACIDOPHILUS/BULGARICUS CHEW TAB GT SCH ×2 (08:29→20:40)
[2022-07-10] MEDS: ASCORBIC ACID 500 MG TABLET PO SCH (08:29)
[2022-07-10] MEDS: PANTOPRAZOLE ORAL SUSPENSION 40 MG SUSPDR.PKT GT SCH (08:29)
[2022-07-10] MEDS: POLYVINYL ALCOHOL OPHT DROPS 15 ML BOTTLE EACHEYE SCH ×3 (08:30→18:03)
[2022-07-10] MEDS: MINERAL OIL/PETROLAT OPHT OINT 3.5 GM TUBE LEFTEYE SCH ×2 (08:32→20:17)
[2022-07-10] MEDS: ALLOPURINOL 100 MG TABLET GT SCH (08:32)
[2022-07-10] MEDS: THERAHONEY GEL 1.5 OZ TUBE TOP SCH (08:33)
[2022-07-10] MEDS: SODIUM HYPOCHLORITE 0.125% (QUARTER STRENGTH) 473 ML BOTTLE TP SCH (08:34)
[2022-07-10] MEDS: CALCITONIN,SALMON,SYNTHETIC 3.7 ML SPRAY.PUMP NS SCH (08:35)
--- NOTE | 2022-07-10 09:00 | NUR ---
Patient seen by before school babysitter Dr. Baldwin report given. Orders to continue with care plan received.
--- NOTE | 2022-07-10 10:30 | NUR ---
Attending Dr. Khan in the unit to see and examine pt. report given. Orders to continue with care plan.
[2022-07-10] MEDS: EPOETIN ALFA-EPBX 10,000 UNIT/ML VIAL SQ SCH (13:40)
[2022-07-11] VITALS (23 sets, daily range): BP systolic 85–115; BP diastolic 29–69
--- NOTE | 2022-07-11 00:01 | NUR ---
Notified Dr Khan of poor urine output & lung sounds very coarse. Received order to hold fluids.
[2022-07-11 06:02] LABS: *BILIRUBIN,URIN NEGATIVE (NEGATIVE); *CLARITY,URINE SLIGHTLY CLOUDY (CLEAR); *COLOR,URINE YELLOW (YELLOW); *KETONES,URINE TRACE (NEGATIVE); *UROBILINOGEN,URINE 0.2 E.U./dl (NORMAL); LEUKOCYTE ESTERASE ,URINE NEGATIVE (NEGATIVE); NITRITE, URINE NEGATIVE (NEGATIVE); UGLUCOSE NEGATIVE (NEGATIVE)
[2022-07-11 06:04] LABS: HEMATOCRIT 25.2 % (36.7-47.1); MEAN CORPUSCULAR HEMOGLOBIN 27.2 uug (23.8-33.4); PLATELET COUNT (AUTO) 157 K/uL (152-348)
[2022-07-11] MEDS: MIDODRINE HCL 5 MG TABLET GT SCH ×3 (06:08→19:34)
[2022-07-11 06:23] LABS: *POTASSIUM RNDM,URINE 33 mmol/L (25-125)
[2022-07-11 06:27] LABS: CREATININE 1.4 mg/dL (0.6-1.3); POTASSIUM 5.6 mmol/L (3.5-5.1)
[2022-07-11 06:52] LABS: *BLOOD, URINE TRACE (NEGATIVE)
--- NOTE | 2022-07-11 07:15 | NUR ---
Received pt. on ventilator, Shiley #6, A/C 14, Tv450, Peep+5 and 40% FIO2 40% A per report all IV fluids and feeding on hold from midnight. Whaley to gravity. Neuro-villalta remains unresponsive to verbal command. but able to move LUE. IV line patent SBP in the borderline 90's 100's without levophed support. Will continue to monitor.
[2022-07-11] MEDS: CEFEPIME HCL 2 G in IV DEXTROSE 5% 100 ML IV SCH ×2 (07:41→20:34)
[2022-07-11] MEDS: POLYVINYL ALCOHOL OPHT DROPS 15 ML BOTTLE EACHEYE SCH ×3 (08:05→17:05)
[2022-07-11] MEDS: ASCORBIC ACID 500 MG TABLET PO SCH (08:13)
[2022-07-11] MEDS: PANTOPRAZOLE ORAL SUSPENSION 40 MG SUSPDR.PKT GT SCH (08:13)
[2022-07-11] MEDS: ALLOPURINOL 100 MG TABLET GT SCH (08:13)
[2022-07-11] MEDS: AMIODARONE HCL 200 MG TABLET PO SCH (08:14)
[2022-07-11] MEDS: ACIDOPHILUS/BULGARICUS CHEW TAB GT SCH ×2 (08:14→19:33)
[2022-07-11] MEDS: MINERAL OIL/PETROLAT OPHT OINT 3.5 GM TUBE LEFTEYE SCH ×2 (08:15→20:35)
[2022-07-11] MEDS: CALCITONIN,SALMON,SYNTHETIC 3.7 ML SPRAY.PUMP NS SCH (08:16)
[2022-07-11] MEDS: THERAHONEY GEL 1.5 OZ TUBE TOP SCH (08:17)
[2022-07-11] MEDS: SODIUM HYPOCHLORITE 0.125% (QUARTER STRENGTH) 473 ML BOTTLE TP SCH (08:17)
--- NOTE | 2022-07-11 08:20 | NUR ---
Attending Dr. Khan in the unit to follow up on pt. at this time orders to resume feeding received and implemented.
[2022-07-11] MEDS ORDERED: FUROSEMIDE 40 MG/4 ML VIAL IV ONE (08:30)
[2022-07-11] MEDS ORDERED: SODIUM POLYSTYRENE SULFONATE 15 G/60 ML LIQUID UDC PO ONE (08:30)
[2022-07-11] MEDS: JEVITY 1.2 1000 ML LIQUID GT PRN (08:45)
--- NOTE | 2022-07-11 09:02 | NUR ---
Boat Dock Operator Dr. Scruggs in the unit to examine pt. See order hx. Addendum: 07/11/22 at 0906 by MARIA D ZURITA RN verbal orders to continue with IV flushes Q4H 250.
--- NOTE | 2022-07-11 09:02 | NUR ---
Pulmonary services, Dr. Baldwin in the unit to follow up on pt. report given orders to continue with care plan received.
[2022-07-11 12:38] LABS: SQUAMOUS EPITHELIAL CELL,UR NONE SEEN /HPF (NONE SEEN); WBC,URINE 0-3 /HPF (0-3)
[2022-07-11 12:41] LABS: URINE AMORPHOUS PHOSPHATES MODERATE /HPF
--- NOTE | 2022-07-11 13:38 | NUR ---
At this time attending notified that T-F held for the moment due large leaking of feeding from G-T insertion, He was also informed that pt. has no residuals.
[2022-07-11 13:50] LABS: CREATININE 1.4 mg/dL (0.6-1.3); POTASSIUM 5.3 mmol/L (3.5-5.1)
[2022-07-11] MEDS: IV 1/2NS 1000 ML 1,000 ML IV PRN (15:33)
--- NOTE | 2022-07-11 17:23 | NUR ---
Dr. Burnham in the unit to examine pt. upon assessment himself removed dressing applied G-T site and G-T pop out. At this time orders to consent pt. for EGD and PEG placement to be done sometime tomorrow afternoon and to call him any time if family has questions.
--- NOTE | 2022-07-11 23:33 | NUR ---
PATIENT ON CONT LEOS VENT WITH TRACH , SUCTION, TRACH CARE, NO VENT CHANGES MADE, PT MOVES LEFT ARM ONLY, SUCTION MOUTH WITH YANKAUER. Marielos HARRINGTON RCP Addendum: 07/11/22 at 2334 by MARISA HARRINGTON RT Amended: Links added.
[2022-07-12] VITALS (46 sets, daily range): BP systolic 83–137; BP diastolic 41–102
[2022-07-12 05:09] LABS: HEMATOCRIT 23.8 % (36.7-47.1); MEAN CORPUSCULAR HEMOGLOBIN 28.2 uug (23.8-33.4); MEAN CORPUSCULAR VOLUME 90.5 fL (73.0-96.2); PLATELET COUNT (AUTO) 117 K/uL (152-348)
[2022-07-12 05:32] LABS: CREATININE 1.5 mg/dL (0.6-1.3); MAGNESIUM 2.1 mg/dL (1.8-2.4)
[2022-07-12 05:37] LABS: PHOSPHOROUS 8.6 mg/dL (2.5-4.9)
[2022-07-12] MEDS: MIDODRINE HCL 5 MG TABLET GT SCH ×3 (06:00→21:37)
--- NOTE | 2022-07-12 07:10 | NUR ---
Received pt. on Vent no change on settings no respiratory distress noted. On sanding machine operator or tender NSR in the 80-90's sbp in the 90's 100's borderline, with no need of vasopressors. PEG-stoma covered with mepilex scant leaking noted. flores to gravity with minimal output as reported. Will continue with care plan.
[2022-07-12] MEDS: CEFEPIME HCL 2 G in IV DEXTROSE 5% 100 ML IV SCH ×2 (07:46→20:29)
[2022-07-12 07:48] LABS: ABG BASE EXCESS -3.4 mmol/L; ABG HCO3 23.1 mmol/L; ABG PCO2 48.9 mmHg (35.0-45.0); ABG PH 7.292 (7.350-7.450); ABG PO2 87.8 mmHg (75.0-100.0); ABG SITE RIGHT RADIAL; ABG TOTAL HEMOGLOBIN 8.3 G/dL (13.5-18.0); COHb 0.7 % (0.5-1.5); MetHb 0.1 % (0.0-1.5); O2Hb 94.7 % (94.0-97.0); VENT MODE VENT - A/C; VT, ABG 450 mL
--- NOTE | 2022-07-12 08:24 | NUR ---
Attending physician Dr. Khan in the unit to examine pt. report given orders to dcd current IV fluid and start pt. on D51/2NS at 75cc/hr. received and implemented.
[2022-07-12] MEDS: IV D5 1/2 NS 1000 ML 1,000 ML IV PRN (08:42)
[2022-07-12] MEDS: NOREPINEPHRINE BITARTRATE 8 MG in IV NORMAL SALINE 242 ML IV PRN ×2 (08:43→20:53)
[2022-07-12] MEDS: PANTOPRAZOLE ORAL SUSPENSION 40 MG SUSPDR.PKT GT SCH (08:52)
[2022-07-12] MEDS: ALLOPURINOL 100 MG TABLET GT SCH (08:52)
[2022-07-12] MEDS: POLYVINYL ALCOHOL OPHT DROPS 15 ML BOTTLE EACHEYE SCH ×3 (08:52→17:25)
[2022-07-12] MEDS: ACIDOPHILUS/BULGARICUS CHEW TAB GT SCH ×2 (08:52→20:43)
[2022-07-12] MEDS: CALCITONIN,SALMON,SYNTHETIC 3.7 ML SPRAY.PUMP NS SCH (08:53)
[2022-07-12] MEDS: AMIODARONE HCL 200 MG TABLET PO SCH (08:53)
[2022-07-12] MEDS: MINERAL OIL/PETROLAT OPHT OINT 3.5 GM TUBE LEFTEYE SCH ×2 (08:53→20:43)
[2022-07-12] MEDS: THERAHONEY GEL 1.5 OZ TUBE TOP SCH (08:54)
[2022-07-12] MEDS: ASCORBIC ACID 500 MG TABLET PO SCH (08:54)
[2022-07-12] MEDS: SODIUM HYPOCHLORITE 0.125% (QUARTER STRENGTH) 473 ML BOTTLE TP SCH (08:56)
--- NOTE | 2022-07-12 10:00 | NUR ---
Pulmonary services, Dr. Baldwin in the unit to see and examine pt. report given orders to continue with current care plan received.
--- NOTE | 2022-07-12 13:00 | NUR ---
Oncology N.PReza Cammy in to see pt. no new orders received.
--- NOTE | 2022-07-12 14:48 | NUR ---
Neuro N.P. in to follow up on pt.
[2022-07-13] VITALS (35 sets, daily range): BP systolic 102–156; BP diastolic 50–70
[2022-07-13] MEDS: IV D5 1/2 NS 1000 ML 1,000 ML IV PRN ×2 (00:05→14:28)
[2022-07-13 05:06] LABS: HEMATOCRIT 26.8 % (36.7-47.1); MEAN CORPUSCULAR HEMOGLOBIN 27.7 uug (23.8-33.4); MEAN CORPUSCULAR VOLUME 91.8 fL (73.0-96.2); PLATELET COUNT (AUTO) 142 K/uL (152-348)
[2022-07-13 05:42] LABS: CREATININE 1.8 mg/dL (0.6-1.3); MAGNESIUM 2.2 mg/dL (1.8-2.4); POTASSIUM 4.9 mmol/L (3.5-5.1)
[2022-07-13 05:47] LABS: PHOSPHOROUS 9.2 mg/dL (2.5-4.9)
[2022-07-13] MEDS: MIDODRINE HCL 5 MG TABLET GT SCH ×3 (06:00→22:00)
[2022-07-13 06:07] LABS: BAND % (MANUAL) 5 % (0-10); LYMPHOCYTES % (MANUAL) 4 % (20-40); MONOCYTES % (MANUAL) 3 % (2-10); NEUTROPHILS % (MANUAL) 88 % (42-75)
--- NOTE | 2022-07-13 07:00 | NUR ---
Received report from Adina Gusman RN pt is resting comfortably and saturation is in the upper 90's. Ventilator settings are AC/ 18 TV 450, PEEP 5 and FIO2 40%. pt has no PEG tube. PEG tube to be inserted today. Pt is on levophed at 0.1 mcg/kg/min.
[2022-07-13 07:48] LABS: ABG BASE EXCESS -6.3 mmol/L; ABG HCO3 22.4 mmol/L; ABG PH 7.189 (7.350-7.450); ABG PO2 96.4 mmHg (75.0-100.0); ABG SITE RIGHT RADIAL; ABG TOTAL HEMOGLOBIN 11.1 G/dL (13.5-18.0); COHb 0.1 % (0.5-1.5); MetHb 0.2 % (0.0-1.5); VENT MODE VENT - A/C; VT, ABG 450 mL
[2022-07-13] MEDS: CEFEPIME HCL 2 G in IV DEXTROSE 5% 100 ML IV SCH ×2 (07:55→20:42)
[2022-07-13] MEDS: POLYVINYL ALCOHOL OPHT DROPS 15 ML BOTTLE EACHEYE SCH ×3 (08:07→16:01)
[2022-07-13] MEDS: CALCITONIN,SALMON,SYNTHETIC 3.7 ML SPRAY.PUMP NS SCH (08:07)
[2022-07-13] MEDS: MINERAL OIL/PETROLAT OPHT OINT 3.5 GM TUBE LEFTEYE SCH ×2 (08:07→21:00)
[2022-07-13] MEDS: THERAHONEY GEL 1.5 OZ TUBE TOP SCH (08:10)
[2022-07-13] MEDS: SODIUM HYPOCHLORITE 0.125% (QUARTER STRENGTH) 473 ML BOTTLE TP SCH (08:10)
[2022-07-13] MEDS: ALLOPURINOL 100 MG TABLET GT SCH (08:11)
[2022-07-13] MEDS: PANTOPRAZOLE ORAL SUSPENSION 40 MG SUSPDR.PKT GT SCH (08:11)
[2022-07-13] MEDS: ACIDOPHILUS/BULGARICUS CHEW TAB GT SCH ×2 (08:11→20:58)
[2022-07-13] MEDS: ASCORBIC ACID 500 MG TABLET PO SCH (08:12)
[2022-07-13] MEDS: AMIODARONE HCL 200 MG TABLET PO SCH (08:12)
[2022-07-13] MEDS: NOREPINEPHRINE BITARTRATE 8 MG in IV NORMAL SALINE 242 ML IV PRN ×2 (08:45→20:44)
[2022-07-13] MEDS ORDERED: SODIUM BICARBONATE 8.4% 50 MEQ/50 ML DISP.SYRIN IV ONE (09:00)
[2022-07-13 11:03] LABS: *BILIRUBIN,URIN NEGATIVE (NEGATIVE); *BLOOD, URINE TRACE (NEGATIVE); *CLARITY,URINE CLEAR (CLEAR); *COLOR,URINE YELLOW (YELLOW); *KETONES,URINE NEGATIVE (NEGATIVE); *UROBILINOGEN,URINE 0.2 E.U./dl (NORMAL); LEUKOCYTE ESTERASE ,URINE NEGATIVE (NEGATIVE); NITRITE, URINE NEGATIVE (NEGATIVE); PH,URINE 5.5 (5.0-8.0); UGLUCOSE NEGATIVE (NEGATIVE)
[2022-07-13 11:22] LABS: BACTERIA,URINE FEW /HPF (NONE SEEN); RBC,URINE 0-3 /HPF (0-3); SQUAMOUS EPITHELIAL CELL,UR FEW /HPF (NONE SEEN); WBC,URINE NONE SEEN /HPF (0-3)
[2022-07-13 12:18] LABS: ABG BASE EXCESS -5.1 mmol/L; ABG HCO3 19.9 mmol/L; ABG PCO2 36.7 mmHg (35.0-45.0); ABG PH 7.353 (7.350-7.450); ABG PO2 103.6 mmHg (75.0-100.0); ABG SITE RIGHT RADIAL; ABG TOTAL HEMOGLOBIN 8.6 G/dL (13.5-18.0); COHb 0.3 % (0.5-1.5); MetHb 0.1 % (0.0-1.5); O2Hb 97.1 % (94.0-97.0); VENT MODE VENT - A/C; VT, ABG 450 mL
--- NOTE | 2022-07-13 17:30 | NUR ---
Dr Victoria arrived to insert PEG tube into patient to replace one that was previously removed
[2022-07-13] MEDS ORDERED: SUCCINYLCHOLINE CHLORIDE 200 MG/10 ML VIAL ONE (18:03)
--- NOTE | 2022-07-13 18:13 | NUR ---
Dr Esme LUNA saw patient and attempted to insert PEG tube unsuccessfully. He told me that it needs to be surgically inserted. Dr Lambert notified.
[2022-07-14] VITALS (42 sets, daily range): BP systolic 74–142; BP diastolic 31–78
[2022-07-14 01:52] LABS: *URINE TOTAL PROTEIN RANDOM 237.9 mg/dL (<150/24HR)
[2022-07-14 01:53] LABS: *CREATININE,URINE 34.5 mg/dL (30-125)
[2022-07-14] MEDS: IV D5 1/2 NS 1000 ML 1,000 ML IV PRN ×2 (05:05→20:02)
[2022-07-14] MEDS: MIDODRINE HCL 5 MG TABLET GT SCH ×4 (05:05→19:57)
[2022-07-14 05:11] LABS: HEMATOCRIT 26.6 % (36.7-47.1); MEAN CORPUSCULAR HEMOGLOBIN 27.9 uug (23.8-33.4); MEAN CORPUSCULAR VOLUME 91.9 fL (73.0-96.2); PLATELET COUNT (AUTO) 89 K/uL (152-348)
[2022-07-14 05:47] LABS: BAND % (MANUAL) 4 % (0-10); LYMPHOCYTES % (MANUAL) 6 % (20-40); MONOCYTES % (MANUAL) 4 % (2-10); NEUTROPHILS % (MANUAL) 86 % (42-75)
[2022-07-14 06:35] LABS: ABG BASE EXCESS -9.9 mmol/L; ABG HCO3 15.9 mmol/L; ABG PCO2 34.2 mmHg (35.0-45.0); ABG PH 7.284 (7.350-7.450); ABG PO2 92.2 mmHg (75.0-100.0); ABG SITE LEFT RADIAL; ABG TOTAL HEMOGLOBIN 10.4 G/dL (13.5-18.0); COHb 0.3 % (0.5-1.5); MetHb 0.4 % (0.0-1.5); O2Hb 95.5 % (94.0-97.0); VENT MODE VENT - A/C; VT, ABG 450 mL
--- NOTE | 2022-07-14 07:15 | NUR ---
Report received from Jamel Trent per report Dr. 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 with no further orders. Patient on ventilator, A/C 28, TV450, Peep +5, and FIO2 40%. tachypneic rate in the mid-30's. saturation of 99%. ABG results notified to manager safe. Cardiac-villalta on SR-ST low 100's, on levophed 0.1mcg/kg/min. Whaley to gravity minimal output. Oral cavity with crusting old blood noted. Oral care rendered immediately. IV line patent. will continue with care plan.
--- NOTE | 2022-07-14 07:31 | NUR ---
REPORT GIVEN TO MERCEDES KILLIAN
--- NOTE | 2022-07-14 08:22 | NUR ---
Pulmonary services, Dr. Baldwin in the unit report given care plan also discusses with nursing pipe and test supervisor present.
[2022-07-14] MEDS: CEFEPIME HCL 2 G in IV DEXTROSE 5% 100 ML IV SCH ×2 (08:24→19:54)
[2022-07-14] MEDS: ACIDOPHILUS/BULGARICUS CHEW TAB GT SCH ×2 (08:24→19:56)
[2022-07-14] MEDS: POLYVINYL ALCOHOL OPHT DROPS 15 ML BOTTLE EACHEYE SCH ×3 (08:24→17:30)
[2022-07-14] MEDS: MINERAL OIL/PETROLAT OPHT OINT 3.5 GM TUBE LEFTEYE SCH ×2 (08:25→19:57)
[2022-07-14] MEDS: ALLOPURINOL 100 MG TABLET GT SCH (08:25)
[2022-07-14] MEDS: PANTOPRAZOLE ORAL SUSPENSION 40 MG SUSPDR.PKT GT SCH (08:25)
[2022-07-14] MEDS: AMIODARONE HCL 200 MG TABLET PO SCH (08:26)
[2022-07-14] MEDS: CALCITONIN,SALMON,SYNTHETIC 3.7 ML SPRAY.PUMP NS SCH (08:26)
[2022-07-14] MEDS: THERAHONEY GEL 1.5 OZ TUBE TOP SCH (08:27)
[2022-07-14] MEDS: ASCORBIC ACID 500 MG TABLET PO SCH (08:27)
[2022-07-14] MEDS: SODIUM HYPOCHLORITE 0.125% (QUARTER STRENGTH) 473 ML BOTTLE TP SCH (08:28)
[2022-07-14] MEDS: PANTOPRAZOLE SODIUM 40 MG VIAL IV SCH (08:31)
[2022-07-14 13:35] LABS: POTASSIUM 4.3 mmol/L (3.5-5.1)
[2022-07-14 13:36] LABS: BILIRUBIN,TOTAL 0.3 mg/dL (0.2-1.0); CREATININE 2.1 mg/dL (0.6-1.3)
[2022-07-14 13:37] LABS: TOTAL PROTEIN, SERUM 5.4 g/dL (6.4-8.2)
--- NOTE | 2022-07-14 13:45 | NUR ---
Patient seen by primary physician Dr. Lambert who updated family at bedside on care plan. Addendum: 07/14/22 at 1858 by MARIA D ZURITA RN Orders to consult home visitor for possible TPN nutrition.
[2022-07-14] MEDS: NOREPINEPHRINE BITARTRATE 8 MG in IV NORMAL SALINE 242 ML IV PRN (13:51)
--- NOTE | 2022-07-14 13:54 | NUR ---
ID services Dr. Cheek in to examine pt.
[2022-07-14] MEDS: METRONIDAZOLE 500 MG/NS 100ML 500 MG in PREMIXED 1 EACH IV SCH ×2 (17:29→21:39)
--- NOTE | 2022-07-14 18:58 | NUR ---
A call to pharmacy to follow up on TPN nutrition at this time I was informed that pt. does not meet criteria for tpn. and that tomorrow He'll discuss it with attending.
--- NOTE | 2022-07-14 19:58 | NUR ---
Held P.O. meds this shift / NPO. Addendum: 07/14/22 at 2258 by [id number] No PEG tube.
[2022-07-15] VITALS (66 sets, daily range): BP systolic 80–155; BP diastolic 41–88
[2022-07-15] MEDS: NOREPINEPHRINE BITARTRATE 8 MG in IV NORMAL SALINE 242 ML IV PRN (02:04)
[2022-07-15 04:57] LABS: HEMATOCRIT 25.3 % (36.7-47.1); MEAN CORPUSCULAR HEMOGLOBIN 27.5 uug (23.8-33.4); MEAN CORPUSCULAR VOLUME 91.3 fL (73.0-96.2)
[2022-07-15 05:08] LABS: CREATININE 2.1 mg/dL (0.6-1.3); MAGNESIUM 1.9 mg/dL (1.8-2.4); PHOSPHOROUS 7.5 mg/dL (2.5-4.9); PLATELET COUNT (AUTO) 39 K/uL (152-348); POTASSIUM 4.3 mmol/L (3.5-5.1)
--- NOTE | 2022-07-15 05:13 | NUR ---
PATIENT ON CONT LEOS VENT WITH SHILEY [address] AND SECURED, SUCTIONED, LIGHT PALE YELL TINGE SECRETIONS, CHECK CUFF, TRACH CARE DONE, CURRENT VENT SETTINGS, A/C 28, 450ML, PEEP5, FIO2 @ 40%, SAT 98-100%, NO VENT CHANGES MADE, ORAL CARE DONE, CHANGE HME.Marielos HARRINGTON RCP Addendum: 07/15/22 at 0516 by MARISA HARRINGTON RT Amended: Links added.
[2022-07-15 05:28] LABS: BAND % (MANUAL) 6 % (0-10)
[2022-07-15 05:29] LABS: LYMPHOCYTES % (MANUAL) 6 % (20-40); MONOCYTES % (MANUAL) 4 % (2-10)
[2022-07-15] MEDS: METRONIDAZOLE 500 MG/NS 100ML 500 MG in PREMIXED 1 EACH IV SCH ×3 (05:29→21:22)
[2022-07-15 05:30] LABS: EOSINOPHILS % (MANUAL) 1 % (0-8); NEUTROPHILS % (MANUAL) 83 % (42-75)
[2022-07-15] MEDS ORDERED: ETOMIDATE 20 MG/10 ML VIAL IV ONE (06:35)
[2022-07-15 07:48] LABS: ABG BASE EXCESS -10.1 mmol/L; ABG HCO3 14.5 mmol/L; ABG PH 7.347 (7.350-7.450); ABG PO2 89.7 mmHg (75.0-100.0); ABG SITE RIGHT RADIAL; ABG TOTAL HEMOGLOBIN 8.2 G/dL (13.5-18.0); COHb 0.2 % (0.5-1.5); MetHb 0.3 % (0.0-1.5); VENT MODE VENT - A/C; VT, ABG 450 mL
[2022-07-15] MEDS: CEFEPIME HCL 2 G in IV DEXTROSE 5% 100 ML IV SCH ×2 (08:07→20:13)
[2022-07-15] MEDS: ACIDOPHILUS/BULGARICUS CHEW TAB GT SCH ×2 (08:30→21:00)
[2022-07-15] MEDS: ALLOPURINOL 100 MG TABLET GT SCH (08:30)
[2022-07-15] MEDS: POLYVINYL ALCOHOL OPHT DROPS 15 ML BOTTLE EACHEYE SCH ×3 (08:30→17:36)
[2022-07-15] MEDS: CALCITONIN,SALMON,SYNTHETIC 3.7 ML SPRAY.PUMP NS SCH (08:31)
[2022-07-15] MEDS: MINERAL OIL/PETROLAT OPHT OINT 3.5 GM TUBE LEFTEYE SCH ×2 (08:31→21:45)
[2022-07-15] MEDS: AMIODARONE HCL 200 MG TABLET PO SCH (08:32)
[2022-07-15] MEDS: ASCORBIC ACID 500 MG TABLET PO SCH (08:32)
[2022-07-15] MEDS: SODIUM HYPOCHLORITE 0.125% (QUARTER STRENGTH) 473 ML BOTTLE TP SCH (08:34)
[2022-07-15] MEDS: PANTOPRAZOLE SODIUM 40 MG VIAL IV SCH (08:38)
[2022-07-15] MEDS: THERAHONEY GEL 1.5 OZ TUBE TOP SCH (08:39)
--- NOTE | 2022-07-15 11:00 | NUR ---
Pt.was seen by LÁZARO BAKER MD
--- NOTE | 2022-07-15 11:10 | NUR ---
Pt.went to CT, tolerated well.
[2022-07-15] MEDS: IV D5 1/2 NS 1000 ML 1,000 ML IV PRN (11:44)
--- NOTE | 2022-07-15 12:30 | NUR ---
Family at bedside,was updated with pt.condition and plan of care.
[2022-07-15] MEDS: MIDODRINE HCL 5 MG TABLET GT SCH ×2 (13:50→21:23)
--- NOTE | 2022-07-15 14:45 | NUR ---
Pt.was seen by CAREN DAVENPORTP family at bedside.
--- NOTE | 2022-07-15 19:10 | NUR ---
Pt is noted in bed nonverbal with Trach to Vent therapy in progress as report is received from the off going nurse. Sinus Rhythm on the Tele monitor , Diminished Lungs sound with Trach to Vent with setting AC, 28, 40, 450 and 5 with Portex #6, skin dry, warm with skin areas noted with open old G-Tube area as pt is NPO, please see skin assessment in chart. Pt is also noted with Whaley cath, Right upper Midline with Levophed at 0.1mcg and IVF D51/2NS at 75ML/HR . Pt care continue as he will be monitor closely , turn and reposition Q2HRS for comfort during the shift as he remain full code.
[2022-07-16] VITALS (45 sets, daily range): BP systolic 89–140; BP diastolic 37–61
--- NOTE | 2022-07-16 00:27 | NUR ---
Pt remain full code as he is been turn and reposition Q2HRS for comfort with Levophed gtt at 0.1mcg therapy in progress as Blood Pressure is been monitor closely. Pt care continue.
[2022-07-16] MEDS: NOREPINEPHRINE BITARTRATE 8 MG in IV NORMAL SALINE 242 ML IV PRN ×3 (01:18→17:03)
--- NOTE | 2022-07-16 04:20 | NUR ---
Pt is stable as AM and wound care done as he remain NPO with IVF D51/2NS at 75M/HR and LEVOPHED 0.2mcg therapy in progress as Blood Pressure is been monitor closely. Pt care continue.
[2022-07-16] MEDS: METRONIDAZOLE 500 MG/NS 100ML 500 MG in PREMIXED 1 EACH IV SCH ×3 (05:11→21:39)
[2022-07-16] MEDS: MIDODRINE HCL 5 MG TABLET GT SCH ×3 (05:12→20:35)
--- NOTE | 2022-07-16 07:24 | NUR ---
Pt care continue as report is given to the AM receiving nurse.
--- NOTE | 2022-07-16 07:30 | NUR ---
Report recieved from overnight caregiver nurse. Pt is on 0.2 mcg/kg/min of levophed. Patient's BP is stable and pt is on ventilator with settings of AC 28 TV 450 FIO2 40% with PEEP 5. Pt is resting comfortably Pt does not have PEG tube and is receiving D5 0.45% NS.
[2022-07-16] MEDS: CEFEPIME HCL 2 G in IV DEXTROSE 5% 100 ML IV SCH ×2 (08:00→20:17)
[2022-07-16] MEDS: SODIUM HYPOCHLORITE 0.125% (QUARTER STRENGTH) 473 ML BOTTLE TP SCH (08:02)
[2022-07-16] MEDS: PANTOPRAZOLE SODIUM 40 MG VIAL IV SCH (08:02)
[2022-07-16] MEDS: MINERAL OIL/PETROLAT OPHT OINT 3.5 GM TUBE LEFTEYE SCH ×2 (08:03→20:36)
[2022-07-16] MEDS: POLYVINYL ALCOHOL OPHT DROPS 15 ML BOTTLE EACHEYE SCH ×3 (08:03→16:33)
[2022-07-16] MEDS: THERAHONEY GEL 1.5 OZ TUBE TOP SCH (08:03)
[2022-07-16] MEDS: CALCITONIN,SALMON,SYNTHETIC 3.7 ML SPRAY.PUMP NS SCH (08:04)
[2022-07-16] MEDS: AMIODARONE HCL 200 MG TABLET PO SCH (08:05)
[2022-07-16] MEDS: ASCORBIC ACID 500 MG TABLET PO SCH (08:05)
[2022-07-16] MEDS: ALLOPURINOL 100 MG TABLET GT SCH (08:06)
[2022-07-16] MEDS: ACIDOPHILUS/BULGARICUS CHEW TAB GT SCH ×2 (08:06→20:35)
[2022-07-16 10:47] LABS: BILIRUBIN,TOTAL 0.5 mg/dL (0.2-1.0); CREATININE 2.2 mg/dL (0.6-1.3); POTASSIUM 4.2 mmol/L (3.5-5.1); TOTAL PROTEIN, SERUM 4.9 g/dL (6.4-8.2)
[2022-07-16 11:05] LABS: MEAN CORPUSCULAR HEMOGLOBIN 27.4 uug (23.8-33.4); MEAN CORPUSCULAR VOLUME 92.7 fL (73.0-96.2)
[2022-07-16 11:09] LABS: PLATELET COUNT (AUTO) 33 K/uL (152-348)
--- NOTE | 2022-07-16 17:10 | NUR ---
PT REMAINS TRACH TO VENT ON CMV. NO VENT CHANGES MADE TODAY. SPO2 AND RESPIRATIONS WNL. TRACH CARE PROVIDED. WILL CONTINUE TO MONITOR AND FOLLOW CURRENT RESPIRATORY ORDERS.
[2022-07-16] MEDS: MORPHINE SULFATE 2 MG/1 ML DISP.SYRIN IV PRN (21:53)
[2022-07-16] MEDS: IV D5 1/2 NS 1000 ML 1,000 ML IV PRN (22:36)
[2022-07-16 23:14] LABS: BAND % (MANUAL) 34 % (0-10); EOSINOPHILS % (MANUAL) 1 % (0-8); METAMYELOCYTES % 8 % (0-1); MYELOCYTES % 2 % (0-0); NEUTROPHILS % (MANUAL) 52 % (42-75)
[2022-07-16 23:19] LABS: LYMPHOCYTES % (MANUAL) 1 % (20-40)
[2022-07-16 23:21] LABS: MONOCYTES % (MANUAL) 2 % (2-10)
[2022-07-17] VITALS (25 sets, daily range): BP systolic 85–116; BP diastolic 42–69
[2022-07-17] MEDS: NOREPINEPHRINE BITARTRATE 8 MG in IV NORMAL SALINE 242 ML IV PRN ×2 (02:56→05:07)
[2022-07-17] MEDS: MIDODRINE HCL 5 MG TABLET GT SCH ×4 (03:36→22:10)
[2022-07-17] MEDS ORDERED: NOREPINEPHRINE BITARTRATE 4 MG/4 ML VIAL IV ONE (04:02)
[2022-07-17] MEDS: METRONIDAZOLE 500 MG/NS 100ML 500 MG in PREMIXED 1 EACH IV SCH ×3 (05:07→22:10)
[2022-07-17 06:10] LABS: HEMATOCRIT 31.9 % (36.7-47.1); MEAN CORPUSCULAR HEMOGLOBIN 27.3 uug (23.8-33.4); MEAN CORPUSCULAR VOLUME 97.7 fL (73.0-96.2)
[2022-07-17 06:27] LABS: PLATELET COUNT (AUTO) 17 K/uL (152-348)
[2022-07-17 07:14] LABS: BAND % (MANUAL) 4 % (0-10); EOSINOPHILS % (MANUAL) 1 % (0-8); LYMPHOCYTES % (MANUAL) 2 % (20-40); METAMYELOCYTES % 2 % (0-1); MONOCYTES % (MANUAL) 1 % (2-10); NEUTROPHILS % (MANUAL) 87 % (42-75)
[2022-07-17] MEDS: CEFEPIME HCL 2 G in IV DEXTROSE 5% 100 ML IV SCH ×2 (08:32→21:26)
[2022-07-17] MEDS: ALLOPURINOL 100 MG TABLET GT SCH (08:36)
[2022-07-17] MEDS: ACIDOPHILUS/BULGARICUS CHEW TAB GT SCH ×2 (08:36→21:00)
[2022-07-17] MEDS: ASCORBIC ACID 500 MG TABLET PO SCH (08:37)
[2022-07-17] MEDS: AMIODARONE HCL 200 MG TABLET PO SCH (08:37)
[2022-07-17] MEDS: SODIUM HYPOCHLORITE 0.125% (QUARTER STRENGTH) 473 ML BOTTLE TP SCH (08:41)
[2022-07-17] MEDS: THERAHONEY GEL 1.5 OZ TUBE TOP SCH (08:42)
[2022-07-17] MEDS: POLYVINYL ALCOHOL OPHT DROPS 15 ML BOTTLE EACHEYE SCH ×3 (08:42→17:03)
[2022-07-17] MEDS: MINERAL OIL/PETROLAT OPHT OINT 3.5 GM TUBE LEFTEYE SCH ×2 (08:42→21:00)
[2022-07-17] MEDS: CALCITONIN,SALMON,SYNTHETIC 3.7 ML SPRAY.PUMP NS SCH (08:43)
--- NOTE | 2022-07-17 09:35 | NUR ---
Nephrology rounded updated no urine output.
[2022-07-17] MEDS: PANTOPRAZOLE SODIUM 40 MG VIAL IV SCH (09:55)
[2022-07-17] MEDS ORDERED: FUROSEMIDE 20 MG/2 ML VIAL IV ONE (12:00)
[2022-07-17] MEDS: NOREPINEPHRINE BITARTRATE 32 MG in IV NORMAL SALINE 218 ML IV PRN (13:02)
[2022-07-17] MEDS: EPOETIN ALFA-EPBX 10,000 UNIT/ML VIAL SQ SCH (14:16)
[2022-07-17] MEDS ORDERED: PHENYLEPHRINE IV 100 MG in IV NORMAL SALINE 240 ML IV PRN (16:00)
[2022-07-18] VITALS (9 sets, daily range): BP systolic 54–104; BP diastolic 20–51
[2022-07-18] MEDS: NOREPINEPHRINE BITARTRATE 32 MG in IV NORMAL SALINE 218 ML IV PRN (01:36)
[2022-07-18 05:08] LABS: HEMATOCRIT 28.2 % (36.7-47.1); MEAN CORPUSCULAR HEMOGLOBIN 27.8 uug (23.8-33.4); MEAN CORPUSCULAR VOLUME 100.5 fL (73.0-96.2)
[2022-07-18 05:51] LABS: PLATELET COUNT (AUTO) 31 K/uL (152-348)
--- NOTE | 2022-07-18 06:20 | NUR ---
Patient noted with wide QRS complex. Notified & C. Alissa,, REVENUE LIAISON noted DNR orders.
[2022-07-18] MEDS: METRONIDAZOLE 500 MG/NS 100ML 500 MG in PREMIXED 1 EACH IV SCH (06:38)
[2022-07-18 07:47] LABS: BILIRUBIN,TOTAL 1.8 mg/dL (0.2-1.0); CREATININE 2.6 mg/dL (0.6-1.3); MAGNESIUM 2.2 mg/dL (1.8-2.4); TOTAL PROTEIN, SERUM 4.4 g/dL (6.4-8.2)
--- NOTE | 2022-07-18 07:47 | NUR ---
Patient apnic for 5 minutes Pupils fixed and dilated No audible heart tones or breath sounds No palpable pulses for one minute No Corneal reflexes Patient pronounced at 7:47 AM Physician notified Saravanan Blanton RN Nursing note.
[2022-07-18 07:48] LABS: PHOSPHOROUS 11.9 mg/dL (2.5-4.9); POTASSIUM 6.6 mmol/L (3.5-5.1)
[2022-07-18 17:12] LABS: BAND % (MANUAL) 2 % (0-10); LYMPHOCYTES % (MANUAL) 18 % (20-40); MONOCYTES % (MANUAL) 2 % (2-10); NEUTROPHILS % (MANUAL) 78 % (42-75)
== END 2022-07-18 12:15 | DRG 870 ==
LOC: ER 10:51 → TELE3 12:30 → CCU 06-04 00:07 → TELE-TD3 06-15 07:30 → CCU 06-20 20:00 → TELE-TD3 06-24 05:44 → CCU 06-24 16:00
PROVIDERS: ADMIT Internal Medicine; ATTEND Internal Medicine
PROC: 05H533Z Insertion of Infusion Device into Right Subclavian Vein, Percutaneous Approach (ICD-10-PCS; 2022-05-31)
PROC: B546ZZA Ultrasonography of Right Subclavian Vein, Guidance (ICD-10-PCS; 2022-05-31)
PROC: 30233N1 Transfusion of Nonautologous Red Blood Cells into Peripheral Vein, Percutaneous Approach (ICD-10-PCS; 2022-06-03)
PROC: 5A12012 Performance of Cardiac Output, Single, Manual (ICD-10-PCS; principal; 2022-06-04)
PROC: 5A1955Z Respiratory Ventilation, Greater than 96 Consecutive Hours (ICD-10-PCS; 2022-06-04)
PROC: 5A1D70Z Performance of Urinary Filtration, Intermittent, Less than 6 Hours Per Day (ICD-10-PCS; 2022-06-04)
PROC: 06HY33Z Insertion of Infusion Device into Lower Vein, Percutaneous Approach (ICD-10-PCS; 2022-06-04)
PROC: 0DJ08ZZ Inspection of Upper Intestinal Tract, Via Natural or Artificial Opening Endoscopic (ICD-10-PCS; 2022-07-13)
DX: A41.9 Sepsis, unspecified organism (principal); J69.0 Pneumonitis due to inhalation of food and vomit; J86.9 Pyothorax without fistula; E43 Unspecified severe protein-calorie malnutrition; G92.8 Other toxic encephalopathy; I50.31 Acute diastolic (congestive) heart failure; N17.0 Acute kidney failure with tubular necrosis; R65.21 Severe sepsis with septic shock; I63.512 Cerebral infarction due to unspecified occlusion or stenosis of left middle cerebral artery; I61.1 Nontraumatic intracerebral hemorrhage in hemisphere, cortical; J96.21 Acute and chronic respiratory failure with hypoxia; C79.51 Secondary malignant neoplasm of bone; J90 Pleural effusion, not elsewhere classified; N39.0 Urinary tract infection, site not specified; C41.1 Malignant neoplasm of mandible; C78.02 Secondary malignant neoplasm of left lung; C78.01 Secondary malignant neoplasm of right lung; C79.31 Secondary malignant neoplasm of brain; E87.0 Hyperosmolality and hypernatremia; E87.20 Acidosis, unspecified; K94.23 Gastrostomy malfunction; R47.01 Aphasia; L02.11 Cutaneous abscess of neck; C78.2 Secondary malignant neoplasm of pleura; I46.9 Cardiac arrest, cause unspecified; B96.5 Pseudomonas (aeruginosa) (mallei) (pseudomallei) as the cause of diseases classified elsewhere; C76.0 Malignant neoplasm of head, face and neck; D64.9 Anemia, unspecified; D69.6 Thrombocytopenia, unspecified; E78.5 Hyperlipidemia, unspecified; E83.39 Other disorders of phosphorus metabolism; E83.42 Hypomagnesemia; E83.52 Hypercalcemia; E86.1 Hypovolemia; Z93.0 Tracheostomy status; Z20.822 Contact with and (suspected) exposure to COVID-19; I45.10 Unspecified right bundle-branch block; E88.09 Other disorders of plasma-protein metabolism, not elsewhere classified; Z92.21 Personal history of antineoplastic chemotherapy; Z87.01 Personal history of pneumonia (recurrent); Z92.3 Personal history of irradiation; R13.10 Dysphagia, unspecified; N28.1 Cyst of kidney, acquired; I48.91 Unspecified atrial fibrillation; I11.0 Hypertensive heart disease with heart failure; E87.5 Hyperkalemia; Z68.28 Body mass index [BMI] 28.0-28.9, adult; L89.156 Pressure-induced deep tissue damage of sacral region; L89.159 Pressure ulcer of sacral region, unspecified stage; R73.03 Prediabetes
CPT/HCPCS: 36415; 36600; 70030-TC; 70450; 70470; 70490; 70496; 71045; 71250; 76604; 76770; 82652; 82803; 83550; 83605; 83690; 83735; 83935; 83970; 84100; 84132; 84133; 84156; 84300; 84443; 84484; 85025; 85610; 85730; 86140; 86706; 86850; 86900; 86901; 86920; 87040; 87340; 90937; 92950; 93005; 93307; 94002; 94003; 94640; 94664; 94760; 99082-TC; A4663; A6209; A6213; C1758; C9113; G0378; J0282; J0330; J0692; J0885; J1644; J1650; J1940; J2185; J2248; J2270; J2370; J2405; J2430; J2543; J3370; J3475; J3490; J3590; J7040; J7042; J7050; J7060; J7070; J7614; J8499; P9016; P9047; Q9967

== ENCOUNTER 2022-05-30 | Inpatient (IN) | payer BC ==
[~2022-05-30] MED LIST: ACET-2154 GT; ALLO100T GT; ENOX40DI SQ; LANS30CA56 GT; MINE3.5O LEFTEYE; NYST5ORA PO; POLY15DR27 EACHEYE
--- NOTE | 2022-06-01 09:59 | NUR ---
This SW notified patient's , Mattie and daughter Santosh by email that the next IDT meeting for the patient is scheduled for 06/08/2021 at 11am. This SW asked Mattie and Santosh to let this SW know if they would like to participate in the meeting by speaker phone.
== END 2022-06-01 | disposition still patient (30) | DRG 951 ==
LOC: SA
PROVIDERS: ADMIT Internal Medicine; ATTEND Internal Medicine
DX: Z00.00 Encounter for general adult medical examination without abnormal findings (principal)
CPT/HCPCS: 94760